=== PATIENT | male | born 1960 | race Caucasian/White ===

== ENCOUNTER 2024-05-26 09:19 | Emergency (ER) | payer OTHER, SELFPAY ==
[2024-05-26] VITALS (7 sets, daily range): BP systolic 115–145; BP diastolic 51–71; BMI 42.2
--- NOTE | 2024-05-26 09:40 | EDRN ---
the pt is in ED Bed #10, the pt got himself out of the bed, while the pt was in the stretcher the pt was screaming and cursing stating, 'I like this better than [facility], at least the nurses are better looking here, that fucking place keeps
holding medications from me and my is all pissed off now, they said i attacked them i didn't attack anyone', VS WNL, the pt was able to ambulate to the bathroom with no issues, Dr. Thorne currently at the pts bedside speaking to the pt, crisis
consult was placed per provider, will continue to monitor the pt closely
--- NOTE | 2024-05-26 09:47 | EDRN ---
the pt is standing in the doorway of Bed #10 and will not go back into his room, the pt is standing with his gown open in the front, this RN called security to assist with the situation
--- NOTE | 2024-05-26 09:56 | EDRN ---
security currently at the pts bedside speaking with the pt
[2024-05-26] MEDS: NICORETTE 2 MG PO ×2 (10:02→14:50)
[2024-05-26] MEDS: COLACE 100 MG PO (10:02)
[2024-05-26] MEDS: BENADRYL 25 MG PO (10:02)
--- NOTE | 2024-05-26 10:07 | ED.GENMED ---
History of Present Illness
General
Chief Complaint: Crisis Evaluation
Source: patient, family and intermediate (records)
Exam Limitations: none
Time Seen by Provider: 05/26/24 09:29
Nursing documentation reviewed up to this point in time: agreed with
History of Present Illness
History of Present Illness:
63-year-old male presents for evaluation of behavioral issues which have been recurrent
Apparently was admitted to [facility] with sounds like cellulitis and edema treated with antibiotics and diuretic has been at a rehab facility, having persistent behavioral issues apparently got an argument with staff today, over a couple
coffee was sent here via 911, here he is intermittently belligerent with the staff overall cooperative, he tells me he like a cup coffee some stool softener and Tums and Benadryl and a nicotine patch
I discussed the case with his Nirali coincidently the patient has been accepted to [facility] today after 1 PM she is wondering if he could be transferred there
Patient tells me his legs are much improved since he was admitted to [place]
Past History
Past History
ED Past Medical History: CHF and Psychiatric
Social History
Tobacco: Non-smoker
Alcohol: None
Drug: None
Personal:
Living: assisted living
Employment: Retired
Review of Systems
Review of Systems
All Other Systems: Not applicable
Constitutional: Denies fever
Psychiatric: Reports anxiety; Denies suicidal or hallucinations
Phy Exam
Physical Exam
Physical Exam:
Physical Exam
General: no apparent distress, not acutely ill
Neck: No jaundice
Heart: Regular
Lungs: no acute respiratory distress. clear bilaterally
Neuro: alert and oriented. no focal neurological deficits
Skin: no rash
Psychiatric: Agitated but redirectable does not appear to be hallucinating
Extremities: Dressed in Sumanth wrap
Course
Orders/Labs/Results
Orders:
Orders
05/26/24 09:38
Crisis Consult Urgent
Reason for Consult: aggressive/combative behavior, threatening staff at intermediate
Comment: chasing staff, attempting to hit staff
05/26/24 09:46
Calcium 200mg(Ca. Carb. 500mg) [Tums Chewable Tablet] 200 mg PO NOW STA
Calcium 200mg(Ca. Carb. 500mg) [Tums Chewable Tablet] 200 mg PO NOW STA
Docusate Sodium [Colace] 100 mg PO NOW STA
Nicotine Polacrilex [Nicorette] 2 mg PO Q2HPRN PRN
05/26/24 09:47
Diphenhydramine [Benadryl] 25 mg PO NOW STA
05/26/24 10:56
COVID-19 Antigen Urgent
Source: Nasal Swab
Complete Blood Count/No Diff Urgent
Comprehensive Metabolic Panel Urgent
05/26/24 10:57
CR Chest - 2 Views Urgent
Comment:
Reason For Exam: leg swelling
Vital Signs
Initial and Last Documented VS:
Initial Vital Signs
Temp Pulse Resp BP Pulse Ox
97.9 F 82 16 124/60 98
05/26/24 09:29 05/26/24 09:29 05/26/24 09:29 05/26/24 09:29 05/26/24 09:29
Last Documented Vital Signs
Temp Pulse Resp BP Pulse Ox
97.9 F 82 16 124/60 98
05/26/24 09:29 05/26/24 09:29 05/26/24 09:29 05/26/24 09:29 05/26/24 09:29
MDM/Problems Addressed
Differential Diagnosis Includes:
Psychosis anxiety depression adjustment disorder no signs of DRIVER SERVICE TECHNICIAN infection by history and physical
MDM/Problems Addressed:
Anxiety
Chronic conditions affecting care: Psychiatric illness
Acute Exacerbation and/or Progression of Chronic Illness: Psychiatric illness
*Pulse Oximetry
Patient hypoxic: no
*Critical Care Note
Total Time (30-74mins, 75-104mins- exclusive of procedures): Not Applicable
Update Note
Update Note:
Update patient easily redirectable request some [id number] meds, will give those to him, also request coffee, did review with his Nirali who would like him to go to [facility] as previously scheduled reviewed with client from crisis will
try to facilitate
Update [facility] is excepted the patient reportedly, has a bed later in the afternoon early evening due to late discharge if requested COVID chest x-ray labs etc.
ED Attending Note
-
Portions of this chart may have been created with voice recognition software.� Occasional wrong word or��sound alike� substitutions may have occurred due to the inherent limitations of voice recognition software.
Discharge Plan
Departure
Patient Disposition: Psych Facility
Date of Disposition: 05/26/24
Time of Disposition: 11:05
Patient with high blood pressure during this ER visit?: No
Condition: Good
Discharge Problem:
Behavioral issue
Instructions: Anxiety, Adult (DC)
Prescriptions:
No Action
acetaminophen 325 mg tablet
650 mg PO QIDPRN PRN (Reason: mild pain/fever)
doxycycline hyclate 100 mg capsule
100 mg PO BID
thiamine HCl (vitamin B1) 100 mg tablet
100 mg PO BID
cefadroxil 500 mg capsule
1,000 mg PO BID
oxycodone-acetaminophen 5-325 mg tablet
1 tab PO Q4HPRN PRN (Reason: moderate pain)
trazodone 100 mg tablet
100 mg PO HS
ferrous sulfate 325 mg (65 mg iron) tablet
325 mg PO DAILY
divalproex 500 mg tablet extended release 24 hr
2,000 mg PO DAILY
cholecalciferol (vitamin D3) 25 mcg (1,000 unit) tablet
50 mcg PO DAILY
cyanocobalamin (vitamin B-12)
1 tab PO DAILY
Referrals:
Dinesh Lindo DO [Family Provider] -
Interventions
Interventions:
*Risk Screen - Suicide Last Done: 05/26/24 09:29
*General Assessment Last Done: 05/26/24 09:29
*Neglect/Abuse Screening Last Done: 05/26/24 09:29
ED- Fall Risk Assessment Last Done: 05/26/24 09:29
*ED COVID-19 Vaccine History Last Done: 05/26/24 09:29
ED-Psychological Assessment Last Done: 05/26/24 09:29
Discharge Date and Time
Print Language: SLOVAK
--- NOTE | 2024-05-26 10:08 | EDRN ---
the pt was standing in the hallway outside of Bed #10, this RN approached the pt and stated that this RN had medication for him and this RN asked the pt to please to back in his room so that this RN could discuss the pts medications with him in
private out of the hallway, the pt got angry and stated, 'Is this how you treat a fucking vet, i'm a vet and this is who you treat me, this is dispicable, just give me my medication and give me coffee right now!', this RN attempted to de escalate
the situation and attempted to calm the pt down, security was called to the pts room, the pt was able to calm down and the pt apologized to this RN, the pt was compliant with taking his medications and was able to take them with no issues, the pt is
walking around in his room and continues to come out of his room attempting to speak to people as they pass by, Raphael from security is talking to the pt, the pt states to security, 'I am bored can you please talk to me', will continue to monitor the
pt closely
--- NOTE | 2024-05-26 10:24 | EDRN ---
the pt continues to pace in his room, the pt is calm and pleasant with staff currently, will continue to monitor the pt closely
--- NOTE | 2024-05-26 10:33 | EDRN ---
this RN provided coffee for the pt per the pts request, the pt is pleasant, calm, and cooperative, the pt continues to walk around in his room and is watching a movie, pastoral care is currently at the pts bedside speaking with the pt, will continue
to monitor the pt closely
--- NOTE | 2024-05-26 10:47 | EDRN ---
pastoral care currently at the pts bedside again speaking with the pt
[2024-05-26 11:34] LABS: Hematocrit 30.8 % (39.0-52.0); Hemoglobin 10.2 g/dL (13.0-18.0); Mean Corp Hgb Conc. 33.1 g/dL (33.0-37.0); Mean Corpuscular Hgb 25.4 pg (27.0-31.0); Mean Corpuscular Volume 76.8 fL (80.0-94.0); Mean Platelet Volume 8.7 fL (7.4-10.4); Platelet Count 266 10^3/uL (130-400); Red Blood Cell Count 4.01 10^6/uL (4.70-6.10); Red Cell Dist. Width 18.7 % (11.5-14.5); White Blood Cell Count 8.2 10^3/uL (4.8-10.8)
--- NOTE | 2024-05-26 11:46 | EDRN ---
an ER lunch box was provided for the pt and another cup of coffee, the pt was agreeable to this RN obtaining lab work, the pt states that he will think about allowing this RN to obtain covid swab per the providers ordser
--- NOTE | 2024-05-26 11:47 | EDRN ---
an ER lunch box was provided for the pt and another cup of coffee, the pt was agreeable to this RN obtaining lab work, the pt states that he will think about allowing this RN to obtain covid swab per the providers orders, will continue to monitor
the pt closely
[2024-05-26 11:52] LABS: ALT (SGPT) 17 U/L (0-50); AST (SGOT) 26 U/L (17-59); Albumin 4.4 g/dl (3.5-5.0); Alkaline Phosphatase 66 U/L (38-126); Blood Urea Nitrogen 32 mg/dl (9-20); Carbon Dioxide 29 mmol/L (22-30); Chloride 96 mmol/L (98-107); Estimated Creatinine Clearance 86 ml/min; Glucose 116 mg/dl (70-99); Potassium 4.6 mmol/L (3.5-5.1); Sodium 137 mmol/L (135-145); Total Bilirubin 0.6 mg/dl (0.2-1.3); Total Protein 7.4 g/dl (6.3-8.2); eGFR > 60.00
--- NOTE | 2024-05-26 12:32 | EDRN ---
the pt is sitting in the chair in his room sleeping sitting up, no s/s of distress, call edmonds within reach, will continue to monitor the pt closely
[2024-05-26] MEDS: ATIVAN 2 MG PO (14:04)
--- NOTE | 2024-05-26 14:07 | EDRN ---
the provider ordered Ativan 2mg PO for the pt for increased agitation, the pt was agreeable to taking it, the pt is sitting on the chair in his room, call edmonds within reach, the pt is watching TV
--- NOTE | 2024-05-26 14:11 | EDRN ---
this RN called crisis for an update, the pt is going to [facility] at 9pm
--- NOTE | 2024-05-26 14:15 | EDRN ---
this RN saw the pt walk down the hallway, this RN approached the pt and asked the pt where he was going, the pt stated, 'I want to go outside, i shouldn't have to stay in here all day, i pay for a one on one med tech at the facility, are they not
here? do they not follow me wherever i go?', this RN explained to the pt that it is a safety issue right now to let the pt go outside, this RN asked the pt if he could please go back to his room, the pt stated, 'I just need to go outside, and i need
to go within the next 15 minutes', the pt is now sitting in the chair in his room watching TV, call edmonds within reach, will continue to monitor the pt closely
--- NOTE | 2024-05-26 14:19 | EDRN ---
the pt approached this RN at the nurses station and asked for more food, this RN provided the pt with another ER lunch box
--- NOTE | 2024-05-26 14:32 | EDRN ---
the pt came out of his room ED Bed #10 and started screaming at staff, security was called, security is talking with the pt in his room now
[2024-05-26] MEDS: HALDOL 5 MG PO (14:50)
--- NOTE | 2024-05-26 15:02 | ED.GENMED ---
History of Present Illness
General
Chief Complaint: Crisis Evaluation
Time Seen by Provider: 05/26/24 09:29
Past History
Past History
ED Past Medical History: CHF and Psychiatric
Social History
Tobacco: Non-smoker
Alcohol: None
Drug: None
Personal:
Living: assisted living
Employment: Retired
Course
Orders/Labs/Results
Orders:
Orders
05/26/24 09:38
Crisis Consult Urgent
Reason for Consult: aggressive/combative behavior, threatening staff at retirement
Comment: chasing staff, attempting to hit staff
05/26/24 09:46
Calcium 200mg(Ca. Carb. 500mg) [Tums Chewable Tablet] 200 mg PO NOW STA
Calcium 200mg(Ca. Carb. 500mg) [Tums Chewable Tablet] 200 mg PO NOW STA
Docusate Sodium [Colace] 100 mg PO NOW STA
Nicotine Polacrilex [Nicorette] 2 mg PO Q2HPRN PRN
05/26/24 09:47
Diphenhydramine [Benadryl] 25 mg PO NOW STA
05/26/24 10:56
COVID-19 Antigen Urgent
Source: Nasal Swab
05/26/24 10:57
CR Chest - 2 Views Urgent
Comment:
Reason For Exam: leg swelling
05/26/24 11:19
Complete Blood Count/No Diff Urgent
Comprehensive Metabolic Panel Urgent
05/26/24 13:41
Lorazepam [Ativan] 1 mg PO Q4HPRN PRN
05/26/24 13:50
Lorazepam [Ativan] 2 mg PO NOW STA
05/26/24 14:46
Haloperidol [Haldol] 5 mg PO NOW STA
Abnormal Lab Results
05/26/24
11:19
RBC 4.01 L 10^6/uL
(4.70-6.10)
Hgb 10.2 L g/dL
(13.0-18.0)
Hct 30.8 L %
(39.0-52.0)
MCV 76.8 L fL
(80.0-94.0)
MCH 25.4 L pg
(27.0-31.0)
RDW 18.7 H %
(11.5-14.5)
Chloride 96 L mmol/L
(98-107)
BUN 32 H mg/dl
(9-20)
Glucose 116 H mg/dl
(70-99)
05/26/24 11:19
05/26/24 11:19
Vital Signs
Initial and Last Documented VS:
Initial Vital Signs
Temp Pulse Resp BP Pulse Ox
97.9 F 82 16 124/60 98
05/26/24 09:29 05/26/24 09:29 05/26/24 09:29 05/26/24 09:29 05/26/24 09:29
Last Documented Vital Signs
Temp Pulse Resp BP Pulse Ox
98.5 F 82 16 145/71 96
05/26/24 12:59 05/26/24 12:59 05/26/24 12:59 05/26/24 12:59 05/26/24 12:59
Update Note
Update Note:
14:40 -patient becoming increasingly agitated, yelling and screaming at staff. Will administer oral Haldol.
-Jessiera Cassidy DO
ED Attending Note
-
Portions of this chart may have been created with voice recognition software.� Occasional wrong word or��sound alike� substitutions may have occurred due to the inherent limitations of voice recognition software.
Discharge Plan
Departure
Patient Disposition: Psych Facility
Date of Disposition: 05/26/24
Time of Disposition: 11:05
Patient with high blood pressure during this ER visit?: No
Condition: Good
Covid-19: Negative COVID-19
Discharge Problem:
Behavioral issue
Instructions: Anxiety, Adult (DC)
Prescriptions:
No Action
acetaminophen 325 mg tablet
650 mg PO QIDPRN PRN (Reason: mild pain/fever)
doxycycline hyclate 100 mg capsule
100 mg PO BID
thiamine HCl (vitamin B1) 100 mg tablet
100 mg PO BID
cefadroxil 500 mg capsule
1,000 mg PO BID
oxycodone-acetaminophen 5-325 mg tablet
1 tab PO Q4HPRN PRN (Reason: moderate pain)
trazodone 100 mg tablet
100 mg PO HS
ferrous sulfate 325 mg (65 mg iron) tablet
325 mg PO DAILY
divalproex 500 mg tablet extended release 24 hr
2,000 mg PO DAILY
cholecalciferol (vitamin D3) 25 mcg (1,000 unit) tablet
50 mcg PO DAILY
cyanocobalamin (vitamin B-12)
1 tab PO DAILY
Referrals:
Dinesh Lindo DO [Family Provider] -
Interventions
Interventions:
*Risk Screen - Suicide Last Done: 05/26/24 09:29
*General Assessment Last Done: 05/26/24 09:29
*Neglect/Abuse Screening Last Done: 05/26/24 09:29
ED- Fall Risk Assessment Last Done: 05/26/24 09:29
*ED COVID-19 Vaccine History Last Done: 05/26/24 09:29
ED-Psychological Assessment Last Done: 05/26/24 09:29
Discharge Date and Time
Print Language: GREENLANDIC
--- NOTE | 2024-05-26 16:38 | EDRN ---
the pt was sleeping in the chair, this RN woke the pt up and asked him if he could get in the stretcher to be more comfortable, the pt agreed, the pt was able to ambulate from the chair to the stretcher, the pt is resting in stretcher in the lowest
position, side rails up x2, all edmonds within reach, HOB elevated, no s/s of distress, VS WNL, will continue to monitor the pt closely
[2024-05-26 17:16] LABS: COVID-19 Antigen Negative (Negative)
--- NOTE | 2024-05-26 18:45 | EDRN ---
this RN called [facility] staff at [phone] and spoke to Cheryl
--- NOTE | 2024-05-26 18:45 | EDRN ---
this RN called [facility] Crisis staff at [phone] and spoke to Cheryl and gave verbal report
== END 2024-05-26 21:27 ==
LOC: EMR 09:19
PROVIDERS: EMERGENCY PHYSICIAN Emergency Medicine; FAMILY PHYSICIAN Internal Medicine Geriatric Medicine
DX: F41.9 Anxiety disorder, unspecified (principal); R45.1 Restlessness and agitation; M79.89 Other specified soft tissue disorders; F03.911 Unspecified dementia, unspecified severity, with agitation; Z11.52 Encounter for screening for COVID-19; I50.9 Heart failure, unspecified
CPT/HCPCS: 99285; 71046; 80053; 85027; 87811

== ENCOUNTER 2024-08-24 13:09 | Inpatient (IN) | payer OTHER, SELFPAY ==
[2024-08-24] VITALS (11 sets, daily range): BP systolic 106–150; BP diastolic 58–77; BMI 39.2
[2024-08-24 10:51] LABS: % Basophils 0.4 % (0-2); % Eosinophils 6.4 % (0-6); % Immature Granulocytes 0.2 % (0-0.5); % Monocytes 12.8 % (1.7-9.3); % Neutrophils 52.2 % (42.2-75.2); Absolute Eosinophils 0.3 10^3/uL (0-0.7); Absolute Lymphocytes 1.4 10^3/uL (1.2-3.4); Absolute Monocytes 0.6 10^3/uL (0.1-0.6); Absolute Neutrophils 2.5 10^3/uL (1.4-6.5); Hematocrit 40.4 % (39.0-52.0); Hemoglobin 13.2 g/dL (13.0-18.0); Mean Corp Hgb Conc. 32.7 g/dL (33.0-37.0); Mean Corpuscular Hgb 26.1 pg (27.0-31.0); Mean Platelet Volume 9.4 fL (7.4-10.4); Nucleated Red Blood Cells % 0 % (-); Platelet Count 114 10^3/uL (130-400); Red Blood Cell Count 5.05 10^6/uL (4.70-6.10); White Blood Cell Count 4.9 10^3/uL (4.8-10.8)
[2024-08-24 11:00] LABS: ALT (SGPT) 19 U/L (0-50); AST (SGOT) 28 U/L (17-59); Albumin 4.4 g/dl (3.5-5.0); Alkaline Phosphatase 51 U/L (38-126); Blood Urea Nitrogen 26 mg/dl (9-20); Calcium 9.6 mg/dl (8.4-10.2); Carbon Dioxide 34 mmol/L (22-30); Chloride 94 mmol/L (98-107); Glucose 91 mg/dl (70-99); Potassium 4.2 mmol/L (3.5-5.1); Sodium 137 mmol/L (135-145); Total Bilirubin 0.6 mg/dl (0.2-1.3); Total Protein 7.7 g/dl (6.3-8.2); eGFR 47.82
[2024-08-24] MEDS: TYLENOL 1000 MG PO (11:02)
--- NOTE | 2024-08-24 11:04 | ED.GENMED ---
History of Present Illness
General
Chief Complaint: Skin Problem
Time Seen by Provider: 08/24/24 10:14
History of Present Illness
History of Present Illness:
63-year-old male with history of frontotemporal dementia and chronic lower extremity edema presents to the emergency department via EMS from [facility] due to worsening leg swelling despite increasing furosemide. Nursing facility
also reports that his legs are markedly erythematous which is not normal. Patient reports diffuse pain to the legs. He states he has been admitted to the hospital many times for cellulitis of the lower extremities
Past History
Past History
ED Past Medical History: CHF and Psychiatric
Social History
Tobacco: Non-smoker
Alcohol: None
Drug: None
Personal:
Living: assisted living
Employment: Retired
Review of Systems
Review of Systems
Allergies reviewed?: Yes
All Other Systems: ROS reviewed and negative except as documented in HPI and ROS
Phy Exam
Physical Exam
Physical Exam:
GEN: Well appearing, NAD, WDWN
HEENT: Oral mucosa moist, no scleral icterus
Cardiac: Regular rate and rhythm, no murmurs
Lung: No respiratory distress, no tachypnea
MSK: No gross deformity or injuries. Marked erythema circumferentially to bilateral lower extremities associated with 4+ pitting edema to the knees bilaterally
Skin: Good color, no pallor or jaundice, no rashes
Neuro: AO x3, moves all extremities freely
Psych: Calm, cooperative
Course
Orders/Labs/Results
Orders:
Orders
08/24/24 10:35
Complete Blood Count/With Diff Urgent
Comprehensive Metabolic Panel Urgent
08/24/24 10:56
Acetaminophen [Tylenol] 1,000 mg PO NOW STA
08/24/24 11:11
NT-proBNP Urgent
08/24/24 11:59
CeFAZolin 2 GRAM [Ancef] 2 grams in 10 ml IV NOW
Furosemide [Lasix] 40 mg IV ONCE ONE
08/24/24 12:45
Admit/Transfer Patient As Directed
Co-Sign Provider:
Level of Care: Inpatient admission
Assign to:: Medical/Surgical
Physician / Group: [email or web address]
Diagnosis: Worsening chronic B/L Jay edema DDX: chr venous insufficiency
Reason for Hospitalization: Worsening chronic B/L Jay edema DDX: chr venous insufficiency with stasis edema
+/_ cellulitis
Expected length of stay greater than two midnights?: Yes
ELOS- Estimated Length of Stay in days: 3
I certify the patient meets the requirements for IP care: Yes
08/24/24 12:50
Code Status As Directed
Resuscitation Status: Full Code
08/24/24 12:54
Venous Doppler Lwr Ext Bilat [US Periph Venous LOWER Ext Josiah] Urgent
Comment:
Reason For Exam: BLE edema
Abnormal Lab Results
08/24/24
10:35
MCH 26.1 L pg
(27.0-31.0)
MCHC 32.7 L g/dL
(33.0-37.0)
RDW 22.0 H %
(11.5-14.5)
Plt Count 114 L 10^3/uL
(130-400)
Monocytes % 12.8 H %
(1.7-9.3)
Eosinophils % 6.4 H %
(0-6)
Chloride 94 L mmol/L
(98-107)
Carbon Dioxide 34 H mmol/L
(22-30)
BUN 26 H mg/dl
(9-20)
Creatinine 1.6 H mg/dL
(0.7-1.3)
08/24/24 10:35
08/24/24 10:35
Vital Signs
Initial and Last Documented VS:
Initial Vital Signs
BP
139/76
08/24/24 10:23
Last Documented Vital Signs
Temp Pulse Resp BP Pulse Ox
98.1 F 84 19 106/77 97
08/24/24 10:37 08/24/24 14:00 08/24/24 14:00 08/24/24 14:00 08/24/24 14:00
MDM/Problems Addressed
MDM/Problems Addressed:
Patient has severe erythema and warmth of bilateral lower extremity suggesting acute cellulitis however cannot rule out associated venous stasis. Will treat with antibiotics and diuretics, will require admission to the hospital due to the complex
nature of infections and lymphedema
*Critical Care Note
Total Time (30-74mins, 75-104mins- exclusive of procedures): Not Applicable
ED Attending Note
-
Portions of this chart may have been created with voice recognition software.� Occasional wrong word or��sound alike� substitutions may have occurred due to the inherent limitations of voice recognition software.
Discharge Plan
Departure
Patient Disposition: Admit
Date of Disposition: 08/24/24
Time of Disposition: 12:00
Admit to: Med/Surg
Presentation/result/management discussed w/ accepting MD/DO: Hospitalist
Discharge Problem:
Bilateral leg edema, Bilateral lower leg cellulitis
Interventions
Interventions:
*Risk Screen - Suicide Last Done: 08/24/24 10:37
*General Assessment Last Done: 08/24/24 10:40
*Neglect/Abuse Screening Last Done: 08/24/24 10:37
ED- Fall Risk Assessment Last Done: 08/24/24 10:40
*ED COVID-19 Vaccine History Last Done: 08/24/24 10:37
ED-Skin Assessment Last Done: 08/24/24 10:40
--- NOTE | 2024-08-24 12:34 | HPS.HSE ---
Addendum entered and electronically signed by Panchito Monsivais MD 08/24/24 15:06:
Addendum HX:
�HX Factor V Leiden def
- On chr Xarelto
Original Note:
Family Physician
-
Family Physician: NO INTERVIEW UNKNOWN
Chief Complaint
-
b.l LE swelling
History of Present Illness
I could not get any information from the patient as FT dementia
Information gathered by chart review and speaking with the ER staff.
HPI
63M Res of [facility] init HX frontotemporal dementia and chronic lower extremity edema [facility] seen at ER:
- worsening leg swelling despite increasing furosemide.
- Nursing facility also reports that his legs are markedly erythematous which is not normal.
- Patient reports diffuse pain to the legs.
- He states he has been admitted to the hospital many times for cellulitis of the lower extremities
Medical History
Past Medical History
Past Medical History: Reports Dementia (frontotemporal dementia , suspect HX behavioral dysfunction ), HTN and Hypothyroidism
Additional Past Medical History:
chronic B/L Jay edema DDX: chr venous insufficiency with stasis edema, gout
Past Surgical History: Reports None
Social History
Unable to obtain full social history at this time due to: Dementia
Tobacco: Non-smoker
Alcohol: None
Drug: None
Personal:
Family History
Family History: Not pertinent
Allergies / Home Medications
Allergies reflects when Allergies were last updated in [employer].
Home Medications with original date entered in [employer]
Allergy/Medication List:
Allergies
Allergy/AdvReac Type Severity Reaction Status Date / Time
No Known Allergies Allergy Verified 08/24/24 10:41
Home Medications
acetaminophen 325 mg tablet 650 mg PO QIDPRN PRN mild pain/fever 05/26/24
cyanocobalamin (vitamin B-12) 1,000 mcg tablet 2,000 mcg PO DAILY Supplement 05/26/24
ferrous sulfate 325 mg (65 mg iron) tablet 324 mg PO DAILY Supplement 05/26/24
albuterol sulfate 90 mcg/actuation aerosol inhaler 2 puff inhalation R Q6HPRN PRN sob 08/24/24
allopurinol 100 mg tablet 100 mg PO DAILY Gout 08/24/24
calcium carbonate (Tums) 400 mg PO Q4HPRN PRN gerd 08/24/24
capsaicin 0.1 % topical cream (Arthritis Pain Relief (capsaicin)) 1 applic topical DAILY 4 gram b/l knee 08/24/24
chlorpromazine 25 mg tablet 25 mg PO BID Gastrointestinal Issue 08/24/24
clonazepam 0.5 mg tablet 0.5 mg PO HS Mental Health/Anxiety 08/24/24
clonazepam 1 mg tablet 1 mg PO BID@1300,2100 Mental Health/Anxiety 08/24/24
divalproex 500 mg tablet,delayed release 1,000 mg PO BID Neurological Condition 08/24/24
ergocalciferol (vitamin D2) 1,250 mcg (50,000 unit) capsule 1,250 mcg PO WE Supplement 08/24/24
famotidine 20 mg tablet (Pepcid) 20 mg PO BID Gastrointestinal Issue 08/24/24
fluticasone 250 mcg-salmeterol 50 mcg/dose blistr powdr for inhalation (Advair Diskus) 1 inh inhalation R BID Lung/Breathing Issues 08/24/24
furosemide 40 mg tablet (Lasix) 40 mg PO BID Fluid Retention/Swelling 08/24/24
hydrocortisone 2.5 % topical cream 1 applic topical TID forehead,center face,chin 08/24/24
lanolin alcohols-mineral oil-w.petrolatum-ceresin topical cream (Minerin Creme topical) 1 applic topical HS lower estremites 08/24/24
levothyroxine 50 mcg tablet (Synthroid) 50 mcg PO DAILY Thyroid 08/24/24
loratadine 10 mg tablet (Claritin) 10 mg PO DAILY Allergies 08/24/24
losartan 25 mg tablet 25 mg PO DAILY Blood Pressure 08/24/24
nicotine 21 mg/24 hr daily transdermal patch 1 patch transdermal DAILY nicotine 08/24/24
pantoprazole 40 mg tablet,delayed release (Protonix) 40 mg PO DAILY Gastrointestinal Issue 08/24/24
risperidone 1 mg tablet (Risperdal) 1.5 mg PO BID Mental Health 08/24/24
rivaroxaban 10 mg tablet (Xarelto) 10 mg PO QPM Blood Clot Prevention/Tx 08/24/24
triamcinolone acetonide 0.025 % topical ointment 1 applic topical DAILY lower legs and ankles 08/24/24
Review of Systems
-
Unable to obtain full review of systems at this time due to: Dementia
Physical Exam
Vital Signs
Vital Signs
Temp Pulse Resp BP Pulse Ox
98.1 F 83 16 139/76 98
08/24/24 10:37 08/24/24 10:37 08/24/24 10:37 08/24/24 10:37 08/24/24 10:37
Physical Exam
General: No Apparent Distress, Comfortable and Conversant
HEENT: NormoCephalic and Anicteric
Respiratory: Clear
Cardiac: S1/S2 and Regular Rhythm
Breast: Deferred by me
GI: Soft, Non Tender, Non Distended and Normal Bowel Sounds
Rectal: Deferred by Provider
Genito-urinary: Deferred by me
Musculoskeletal: Edema, Left Lower Extremity, Edema, Right Lower Extremity and Other (Marked erythema circumferentially to bilateral lower extremities associated with 4+ pitting edema to the knees bilaterally)
Skin: Other (b/l legs : very warm , erythematous and tender , pitting edema)
Neuro: Awake and Alert
Psych: Calm
Laboratory Results
-
08/24/24 10:35
08/24/24 10:35
Laboratory Results
Total Bilirubin 0.6 mg/dl (0.2-1.3) 08/24/24 10:35
AST 28 U/L (17-59) 08/24/24 10:35
ALT 19 U/L (0-50) 08/24/24 10:35
Alkaline Phosphatase 51 U/L (38-126) 08/24/24 10:35
Data Reviewed
-
Lab Data: Discussed with Physician
Old Records: Requested (by ER RESEARCH ENVIRONMENTAL ENGINEER )
Impression/Plan
-
Reviewed VS: Afebrile
Data
05/26/24 08/24/24 08/24/24
11:19 10:35 11:11
WBC 4.9
Plt Count 266 114 L
Chloride 94 L
Carbon Dioxide 29 34 H
Creatinine 1.2 1.6 H
eGFR > 60.00 47.82
Vyj-I-Ezlamnssdwc Pept 24.0
NO PRIOR hospitalist admission:
ASSESSMENT & PLAN
Worsening chronic B/L Jay edema proabaly chr venous insufficiency/ stasis edema with superimposed b/l Jay cellulitis
Asso. Ambulatory dysfunction
Afebrile, nl WCC
- b/l Jay US
- unremarkable pro BNP
- check b/l Jay US
- Empiric IV Cefazolin 2GM Q8H
- WD care for compression Tx
- ID consult for second opinion ref to cellulitis or what not !
CHF in the listed HX
-not in acute HF
- ECHO in AM
- cont. IV Lasix [address] of PO Frusmide 40 BID for LExz edema
- on BOLT SAWYER Losartan
- daily wt
- daily BMP
Benign HTN
- on BOLT SAWYER Losartan
On Chr Xarelto - uncertain of indication
No prior Dx of DVT/PE or AF
of note SNF just said 'clot prevention'
- To increase info from NH record
HX FTD ( Frontotemporal dementia )
Suspect HX behavioral dysfunction
- BOLT SAWYER Risperidone
- BOLT SAWYER Clonazepam
- BOLT SAWYER Divalproex
Hypothyroid
- asymptomatic
- check TSH
- on LT4
Gout
- not active, stable
- allopurinol
DVT Px: Xarelto
Full code
IP MS
[2024-08-24] MEDS: LASIX 40 MG IV (12:56)
[2024-08-24] MEDS: ANCEF 10 IV ×2 (12:56→21:05)
--- NOTE | 2024-08-24 16:54 | PTCARENOTE ---
Received pt from ED via stretcher. Pulled over to bed with assist x4. AAOx2-3. Forgetful. Bed alarm placed and plugged in. Assessed. Call edmonds placed within close reach. Will cont to monitor.
[2024-08-24] MEDS: KLONOPIN 1 MG PO ×2 (17:51→21:12)
[2024-08-24] MEDS: XARELTO 10 MG PO (17:51)
[2024-08-24] MEDS: THORAZINE 25 MG PO (21:06)
[2024-08-24] MEDS: PEPCID 20 MG PO (21:06)
[2024-08-24] MEDS: DEPAKOTE (12 HR RELEASE) 1000 MG PO (21:07)
[2024-08-24] MEDS: RISPERDAL 1.5 MG PO (21:07)
[2024-08-24] MEDS: KLONOPIN PO (22:53)
[2024-08-25] MEDS: ANCEF 10 IV ×3 (03:55→21:38)
[2024-08-25] MEDS: SYNTHROID 50 MCG PO (05:01)
[2024-08-25] MEDS: KLONOPIN 0.5 MG PO ×2 (05:01→23:18)
[2024-08-25 06:00] VITALS: BMI 38.8
[2024-08-25 06:43] LABS: Hematocrit 34.5 % (39.0-52.0); Hemoglobin 11.4 g/dL (13.0-18.0); Mean Corpuscular Hgb 26.6 pg (27.0-31.0); Mean Corpuscular Volume 80.4 fL (80.0-94.0); Mean Platelet Volume 9.3 fL (7.4-10.4); Platelet Count 100 10^3/uL (130-400); Red Blood Cell Count 4.29 10^6/uL (4.70-6.10); Red Cell Dist. Width 21.4 % (11.5-14.5); White Blood Cell Count 4.8 10^3/uL (4.8-10.8)
[2024-08-25 07:03] LABS: Blood Urea Nitrogen 26 mg/dl (9-20); Calcium 8.9 mg/dl (8.4-10.2); Carbon Dioxide 32 mmol/L (22-30); Chloride 98 mmol/L (98-107); Estimated Creatinine Clearance 75 ml/min; Glucose 85 mg/dl (70-99); Potassium 4.1 mmol/L (3.5-5.1); Sodium 136 mmol/L (135-145); eGFR > 60.00
--- NOTE | 2024-08-25 07:08 | PTCARENOTE ---
Pt's Klonopin 1mg ordered for 2099 and Klonopin 0.5mg ordered for 2199. 2100 dose given (see MAR), 2199 dose held d/t pt being drowsy. at 0, pt woke up c/o anxiety and was attempting to get oob. METAL PLATER notified, 1x dose of klonopin 0.5mg ordered.
Med list from pt's facility said to give both klonopin doses together HS. home med list updated and METAL PLATER notified. No new orders placed. Plan of care ongoing and bed alarm in place.
[2024-08-25 07:31] VITALS: BP 125/62
[2024-08-25 07:35] LABS: TSH 5.05 uIU/ml (0.47-4.68)
[2024-08-25] MEDS: TYLENOL 650 MG PO (09:07)
[2024-08-25] MEDS: LASIX 40 MG IV ×2 (09:07→16:00)
[2024-08-25] MEDS: PEPCID 20 MG PO ×2 (09:07→21:44)
[2024-08-25] MEDS: RISPERDAL 1.5 MG PO ×2 (09:08→21:39)
[2024-08-25] MEDS: ZYLOPRIM 100 MG PO (09:08)
[2024-08-25] MEDS: PROTONIX 40 MG PO (09:08)
[2024-08-25] MEDS: DEPAKOTE (12 HR RELEASE) 1000 MG PO ×2 (09:08→21:40)
[2024-08-25] MEDS: THORAZINE 25 MG PO ×2 (09:08→21:42)
[2024-08-25] MEDS: DRISDOL (VITAMIN D2) 50000 UNITS PO (09:09)
--- NOTE | 2024-08-25 09:43 | W.PN.HOSP.TC ---
Today's Communication/Plan
-
Lasix IV BID
Echo of heart
EKG
BMP in AM
f/w ID recommendations
compression dressing to LEs.
Assessment / Plan
Assessment / Plan
Physical Exam
General: No Apparent Distress, obese, Comfortable and Conversant
HEENT: Normocephalic and Anicteric
Respiratory: Clear
Cardiac: S1/S2 and Regular Rhythm
GI: Soft, Non Tender, Non Distended and Normal Bowel Sounds
Rectal: No bleeding
Genito-urinary:no hematuria
Musculoskeletal: edema in both lower extremities with redness, no tenderness.
Skin: Other (b/l legs : very warm , erythematous and tender , pitting edema)
Neuro: Awake and Alert , disoriented to place, time. He followed commands
Psych: Calm
Worsening chronic B/L Jay edema likely due to edema, chronic venous insufficiency/ stasis edema
Doubt Jay cellulitis with absence of pain/ fever/ leukocytosis.
Negative US for DVT
- unremarkable pro BNP
- Empiric IV Cefazolin 2GM Q8H. ID is consulted.
- Elevate the LE, compression dressing.
- start IV Lasix BID. Will do echo of heart to check for RV dysfunction. No signs of respiratory distress but patient is not reliable historian.
CHF in the listed HX
Will f/w ECHO
- cont. IV Lasix 40 daily as BID. Monitor weight/ renal function and electrolytes.
- Hold Losartan to avoid low BP while on Lasix IV.
EKG
- daily BMP
Benign HTN
On Chr Xarelto - uncertain of indication
No prior Dx of DVT/PE or AF
of note SNF just said 'clot prevention'
- To increase info from NH record
HX FTD ( Frontotemporal dementia )
HX behavioral dysfunction
- STEWARD/STEWARDESS CLUB CAR Risperidone
- STEWARD/STEWARDESS CLUB CAR Clonazepam
- STEWARD/STEWARDESS [employer]UB CAR Divalproex
Hypothyroid
- asymptomatic
- check TSH
- on LT4
Gout
- not active, stable
- allopurinol
DVT Px: Xarelto
Full code
Total time spent to see the patient, examine the patient, review data and lab results, discuss the treatment plan with patient, nursing staff around 55 minutes
Anticipated Discharge: 24 - 48 hours
Subjective/Interval History
-
Date of Service: August 25, 2024
he denies chest pain, sob , abdominal pain
no pain in both legs
Objective Data
-
Labs:
Laboratory Results
08/25/24
06:23
WBC 4.8
Hgb 11.4 L
Hct 34.5 L
Plt Count 100 L
Sodium 136
Potassium 4.1
Chloride 98
Carbon Dioxide 32 H
BUN 26 H
Creatinine 1.3
Glucose 85
Calcium 8.9
Vital Signs:
Vital Signs
Temp Pulse Resp BP Pulse Ox
97.6 F 72 16 125/62 92
08/25/24 07:31 08/25/24 09:07 08/25/24 07:31 08/25/24 09:07 08/25/24 07:31
I&O
08/24/24 08/25/24 08/26/24
06:59 06:59 06:59
Intake Total 260 / 260
Output Total 1450 / 1450
Balance -1190 / -1190
--- NOTE | 2024-08-25 12:26 | CON.ID ---
Consultation
-
Date/Time Consultation Requested: 08/24/2024 2229
Date/Time Consultation Performed: 08/25/2024 1200
Requesting Provider: Mari Ruiz
Performing Provider: Dr. Umanzor
Reason for Consultation: Lower extremity cellulitis
Chief Complaint / Past History
History of Present Illness
Pete Dan is a 63-year-old man with a significant past medical history of frontotemporal dementia being evaluated at the request of Mari Ruiz regarding bilateral lower extremity cellulitis. History is obtained from chart review, along with
patient interview, although patient was found to not be able to provide significant past medical history for me.
The patient has a history of chronic lower extremity edema, and is admitted from [facility] secondary to worsening lower extremity swelling. He was noted at the facility that his legs have become more edematous despite the use of Lasix, and have
increased in erythema, prompting emergency room evaluation.
Workup in the emergency room did not reveal leukocytosis. Patient was started on empiric antibiotics. Infectious Diseases is asked to comment upon further antimicrobial therapy.
Past History
Additional Past Medical History:
Lower extremity lymphedema
Frontotemporal dementia
HTN
Hypothyroidism
Gout
Past Surgical History: None
Allergy History:
No Known Allergies Allergy (Verified 08/24/24 10:41)
Current Antibiotics:
Cefazolin 2 g IV every 8 hours
Social History
Tobacco: Non-Smoker
Alcohol: None
Drug: None
Living: Long Term
Family History
Family History: Not Pertinent
Review of Systems
Vital Signs
Temp Pulse Resp BP Pulse Ox
97.6 F 72 16 125/62 92
08/25/24 07:31 08/25/24 09:07 08/25/24 07:31 08/25/24 09:07 08/25/24 07:31
Physical Exam
Physical Exam
Constitutional: No Acute Distress, Comfortable, Non-toxic and Obese
Head: Normocephalic
Eyes: No Conjunctival Hemorrhage and Sclera Anicteric
Oral: No Thrush and No Ulcers
Cardiovascular: S1/S2; Negative S3/S4
Pulmonary: Clear; Negative Wheezes or Rales
Gastrointestinal: Soft, Non Tender, Non Distended and Normal Bowel Sounds
Extremities: Edema (4+ B/L LE edema) and Erythema (Marked B/L LE erythema. Mod warmth)
Neurological: Other (Arousable to voice. Resting comfortably.)
Psychological: Calm
.
Lab / Diagnostic Study Results
08/25/24 06:23
08/25/24 06:23
Abs Immat Gran (auto) 0.0 10^3/uL (0-0.05) 08/24/24 10:35
Absolute Neuts (auto) 2.5 10^3/uL (1.4-6.5) 08/24/24 10:35
Absolute Lymphs (auto) 1.4 10^3/uL (1.2-3.4) 08/24/24 10:35
Absolute Monos (auto) 0.6 10^3/uL (0.1-0.6) 08/24/24 10:35
Absolute Basos (auto) 0.0 10^3/uL (0-0.2) 08/24/24 10:35
Immature Gran % 0.2 % (0-0.5) 08/24/24 10:35
Neutrophils % 52.2 % (42.2-75.2) 08/24/24 10:35
Lymphocytes % 28.0 % (20.5-51.1) 08/24/24 10:35
Monocytes % 12.8 % (1.7-9.3) H 08/24/24 10:35
Eosinophils % 6.4 % (0-6) H 08/24/24 10:35
Basophils % 0.4 % (0-2) 08/24/24 10:35
Microbiology Results
Micro:
08/25/24 02:52 MRSA Screen - Pending
Nose
Imaging:
08/24/2024 duplex ultrasound lower extremities: No evidence of DVT in either lower extremity
Assessment / Plan
Bilateral lower extremity erythroderma
Bilateral lower extremity lymphedema
Frontotemporal dementia
HTN
Hypothyroidism
Gout
Morbid obesity
Recommendations:
Continue with empiric ceftriaxone, although likelihood of cellulitis is less given that the erythema is noted on the bilateral lower extremities.
Suspect erythroderma is secondary to profound edema.
Begin bilateral lower extremity compressive modalities with the use of Sumanth wrap's.
Lower extremity elevation above the level of the heart approximately 2 hours out of every 6.
Follow white count and temperature curve.
Follow clinical exam.
[2024-08-25] MEDS: KLONOPIN 1 MG PO ×2 (12:56→23:17)
[2024-08-25 16:04] VITALS: BP 129/76
[2024-08-25 16:15] LABS: Hepatitis C Antibody Negative (Negative)
[2024-08-25] MEDS: XARELTO 10 MG PO (17:33)
[2024-08-25 19:25] VITALS: BP 106/59
[2024-08-25 20:31] VITALS: BP 106/59
[2024-08-25 23:15] VITALS: BP 114/64
[2024-08-26 04:18] VITALS: BMI 38.9
[2024-08-26] MEDS: ANCEF 10 IV ×2 (05:08→12:47)
[2024-08-26] MEDS: SYNTHROID 50 MCG PO (05:09)
[2024-08-26 06:00] VITALS: BMI 38.9
[2024-08-26] MEDS: PROTONIX 40 MG PO (07:39)
[2024-08-26] MEDS: PEPCID 20 MG PO ×2 (07:39→20:40)
[2024-08-26] MEDS: ZYLOPRIM 100 MG PO (07:40)
[2024-08-26] MEDS: RISPERDAL 1.5 MG PO ×2 (07:40→20:41)
[2024-08-26] MEDS: LASIX 40 MG IV ×2 (07:40→15:50)
[2024-08-26] MEDS: DEPAKOTE (12 HR RELEASE) 1000 MG PO ×2 (07:40→20:41)
[2024-08-26] MEDS: THORAZINE 25 MG PO ×2 (07:40→20:41)
[2024-08-26] MEDS: SENOKOT-S 1 TABLET PO (07:44)
[2024-08-26 07:45] VITALS: BP 131/77
[2024-08-26 08:56] LABS: Blood Urea Nitrogen 24 mg/dl (9-20); Calcium 8.9 mg/dl (8.4-10.2); Carbon Dioxide 32 mmol/L (22-30); Chloride 96 mmol/L (98-107); Estimated Creatinine Clearance 75 ml/min; Glucose 80 mg/dl (70-99); Potassium 3.8 mmol/L (3.5-5.1); Sodium 135 mmol/L (135-145); eGFR > 60.00
--- NOTE | 2024-08-26 08:59 | W.PN.HOSP.TC ---
Today's Communication/Plan
-
c/w Diuretic therapy
Echo today
low dose potassium replacement added in pm time
BMP in AM
Assessment / Plan
Assessment / Plan
Physical Exam
General: No Apparent Distress, obese, Comfortable and Conversant
HEENT: Normocephalic and Anicteric
Respiratory: Clear
Cardiac: S1/S2 and Regular Rhythm
GI: Soft, Non Tender, Non Distended and Normal Bowel Sounds
Rectal: No bleeding
Genito-urinary:no hematuria
Musculoskeletal: edema in both lower extremities with redness, no tenderness.
Skin: Other (b/l legs : less edema, discoloration, non tender)
Neuro: Awake and Alert , disoriented to place, time. He followed commands
Psych: Calm
Worsening chronic B/L Jay edema likely due to edema, chronic venous insufficiency/ stasis edema
Doubt Jay cellulitis with absence of pain/ fever/ leukocytosis.
Negative US for DVT
- unremarkable pro BNP
- Empiric IV Cefazolin 2GM Q8H. ID is consulted.
- Elevate the LE, compression dressing.
- start IV Lasix BID. Will do echo of heart to check for RV dysfunction. No signs of respiratory distress but patient is not reliable historian.
CHF in the listed HX
Will f/w ECHO
- cont. IV Lasix 40 daily as BID. Monitor weight/ renal function and electrolytes.
- Held Losartan to avoid low BP while on Lasix IV.
EKG NSR
- daily BMP
Benign HTN
On Chr Xarelto - uncertain of indication
No prior Dx of DVT/PE or AF
of note SNF just said 'clot prevention'
HX FTD ( Frontotemporal dementia )
HX behavioral dysfunction
- BIOSTATISTICS TEACHER Risperidone
- BIOSTATISTICS TEACHER Clonazepam
- BIOSTATISTICS TEACHER Divalproex
Hypothyroid
- asymptomatic
- check TSH
- on LT4
Gout
- not active, stable
- allopurinol
DVT Px: Xarelto
Full code
Total time spent to see the patient, examine the patient, review data and lab results, discuss the treatment plan with patient, nursing staff around 57 minutes
Anticipated Discharge: Within 24 hours
Subjective/Interval History
-
Date of Service: August 26, 2024
No pain issues
feels better
Objective Data
-
Labs:
Laboratory Results
08/26/24
06:23
Sodium 135
Potassium 3.8
Chloride 96 L
Carbon Dioxide 32 H
BUN 24 H
Creatinine 1.3
Glucose 80
Calcium 8.9
Vital Signs:
Vital Signs
Temp Pulse Resp BP Pulse Ox
98.2 F 79 16 131/77 94
08/25/24 23:15 08/26/24 07:45 08/26/24 07:45 08/26/24 07:45 08/26/24 07:45
I&O
08/25/24 08/26/24 08/27/24
06:59 06:59 06:59
Intake Total 260 / 260 840 / 840
Output Total 1450 / 1450 1200 / 1200
Balance -1190 / -1190 -360 / -360
--- NOTE | 2024-08-26 09:18 | CARDSERVLU ---
Echocardiogram with Lumason completed after protocol screening completed. Allergies verified.
Patent IV site: Left arm 20 G PC site clear (in patient)
IV site flushed with 0.9% NaCl pre and post administration.
Diluted bolus method utilized to enhance visualization of ventricular quintero.
Total volume given: ___4_ mL
Patient tolerated all procedures well without complications.
Procedure completed at 0835 in Cardiac Services .
--- NOTE | 2024-08-26 10:04 | WOUNDNOTE ---
[facility] RN note: Patient admitted with increased LE edema.
See H&P for complete history.
PMH: Factor V Leiden deficiency (Xarelto), dementia, lymphedema, HTN, gout, obesity.
Wound Location and type/assessment: Patient admitted with: LE edema with hemosiderosis. +Palpable pedal pulses. LE edema improved as per EMELY Valentine. Coccyx crease MASD.
Appetite: good.
Pressure redistribution devices in place:
Plan:
Will confirm orders with hospitalist and update nurse.
Updated care plan and will follow as needed.
Note to case management of equipment requested for discharge:
Recommend follow up at wound care center upon discharge.
--- NOTE | 2024-08-26 10:08 | WOUNDNOTE ---
[facility] RN note: Patient admitted with increased LE edema.
See H&P for complete history.
PMH: Factor V Leiden deficiency (Xarelto), dementia, lymphedema, HTN, gout, obesity.
Wound Location and type/assessment: Patient admitted with: LE edema with hemosiderosis, no draining wounds le's. +Palpable pedal pulses. LE edema improved as per EMELY Valentine. Coccyx crease MASD.
Appetite: good.
Pressure redistribution devices in place: [employer] air bed. Patient cannot turn self in bed nor lift his legs off bed.
Plan: Thigh high Sumanth wraps applied, sohan care, patient turned to L semi side lying position with help from EMELY Valentine. Heels off bed with pillow and air chair cushion. Instructed patient frequent LE elevation and pressure injury prevention measures.
Care plan to be updated, will sign off. Call if needed.
Recommend follow up at a lymphedema clinic if needed.
[2024-08-26] MEDS: FLUSH (NSS) 2 FLUSH IV (12:48)
[2024-08-26] MEDS: KLONOPIN 1 MG PO ×2 (12:50→20:44)
--- NOTE | 2024-08-26 13:21 | CM ---
CHANTALE from [facility] CM offering assistance with d/c planning.
Her contact number is [phone]- [email or web address] .
--- NOTE | 2024-08-26 14:02 | W.PN.ID1 ---
Date of Service
Date of Service: August 26, 2024
Today's Communication
Transition to oral Keflex.
Assessment / Plan
Bilateral lower extremity erythroderma
Bilateral lower extremity lymphedema
Frontotemporal dementia
HTN
Hypothyroidism
Gout
Morbid obesity
Recommendations:
Suspect erythroderma secondary to edema. Improved today.
Continue bilateral lower extremity compressive modalities with the use of Sumanth wrap's.
Lower extremity elevation above the level of the heart approximately 2 hours out of every 6.
Transition to oral keflex for 4 more days.
Chief Complaint
-: Cellulitis
Subjective / Review of Systems
Review of Systems: No Fever and No Chills
Vital Signs / Physical Exam
Vital Signs
Vital Signs
Temp Pulse Resp BP Pulse Ox
98.2 F 79 16 131/77 94
08/25/24 23:15 08/26/24 07:45 08/26/24 07:45 08/26/24 07:45 08/26/24 07:45
Physical Exam
Constitutional: No Acute Distress, Comfortable, Chronically Ill and Obese
Eyes: No Conjunctival Hemorrhage and Sclera Anicteric
Cardiovascular: S1/S2; Negative S3/S4
Pulmonary: Non Labored
Extremities: Edema (3+ B/L LE edema. Improved erythema)
Neurological: Awake and Alert
Psychological: Calm
Objective Data
Lab Data
Lab Results
08/25/24 06:23
08/26/24 06:23
Estimated Creat Clear 75 ml/min 08/26/24 06:23
Total Bilirubin 0.6 mg/dl (0.2-1.3) 08/24/24 10:35
AST 28 U/L (17-59) 08/24/24 10:35
ALT 19 U/L (0-50) 08/24/24 10:35
Alkaline Phosphatase 51 U/L (38-126) 08/24/24 10:35
Most recent labs reviewed.
Micro Results:
08/25/24 02:52 MRSA Screen - Final
Nose No Methicillin Resistant Staphylococcus aureus isolated.
Imaging:
08/24/2024 duplex ultrasound lower extremities: No evidence of DVT in either lower extremity
Care Review
Plan reviewed with: Physician (Hospitalist)
[2024-08-26 15:24] VITALS: BP 131/72
[2024-08-26] MEDS: KCL 40 MEQ PO (15:50)
--- NOTE | 2024-08-26 16:36 | CM ---
Placed a call to patient's to obtain information for assessment. Patient's stated that patient lives in the [facility] in [place] as he is cognitively impaired. Patient stated that he uses a walker at baseline. He needs assistance
with all ADLs, personal care, dressing and bathing. He has access to transportation and can get to his appointments and do his own shopping.
Patient has a prescription plan and meds are managed through the facility. He has a PCP.
He has never been to a SNF. He has never had VN services.
Patient's would like for patient to return there when stable.
Plan: Case management will continue to follow and assist with discharge planning. Back to [facility] when cleared for discharge.
[2024-08-26] MEDS: KEFLEX 500 MG PO ×2 (17:30→22:12)
[2024-08-26] MEDS: XARELTO 10 MG PO (17:30)
[2024-08-26] MEDS: KLONOPIN 0.5 MG PO (22:15)
[2024-08-26 23:25] VITALS: BP 107/64
[2024-08-27] MEDS: SYNTHROID 50 MCG PO (05:56)
[2024-08-27 06:00] VITALS: BMI 38.9
[2024-08-27 07:00] VITALS: BP 132/78
[2024-08-27 08:27] LABS: Blood Urea Nitrogen 25 mg/dl (9-20); Carbon Dioxide 32 mmol/L (22-30); Chloride 96 mmol/L (98-107); Estimated Creatinine Clearance 89 ml/min; Glucose 88 mg/dl (70-99); Potassium 4.1 mmol/L (3.5-5.1); Sodium 135 mmol/L (135-145); eGFR > 60.00
[2024-08-27] MEDS: RISPERDAL 1.5 MG PO ×2 (08:40→21:13)
[2024-08-27] MEDS: THORAZINE 25 MG PO ×2 (08:41→21:13)
[2024-08-27] MEDS: PEPCID 20 MG PO ×2 (08:41→21:13)
[2024-08-27] MEDS: PROTONIX 40 MG PO (08:41)
[2024-08-27] MEDS: ZYLOPRIM 100 MG PO (08:41)
[2024-08-27] MEDS: KEFLEX 500 MG PO ×4 (08:41→21:14)
[2024-08-27] MEDS: DEPAKOTE (12 HR RELEASE) 1000 MG PO ×2 (08:41→21:14)
[2024-08-27] MEDS: LASIX 40 MG IV (08:41)
--- NOTE | 2024-08-27 13:37 | CM ---
Addendum entered by MANA Cid 08/27/24 16:56:
attending updated.
Addendum entered by MANA Cid 08/27/24 16:50:
Spoke with PT who stated that patient is unable to ambulate and dependent level for most assistance.
Spoke with Ryann in admissions at [facility] who stated that she will f/u regarding patient, however, denied that she can take him back at his current functional status. Will need to discuss with family and obtain options.
Addendum entered by MANA Cid 08/27/24 13:50:
Received a call from Ryann who inquired as to whether patient is at baseline. She stated that they would not be able to support him if he is not able to use his walker or transition to his meals independently.
TT MD to make aware. Stat order placed for patient to work with PT to determine current functional status.
Original Note:
Spoke with attending who stated that patient is medically cleared for discharge/transfer back to [facility]. A tech answered the phone and stated that his nurse is Ryann but she is on her lunch break. Provided CM number and requested return call
from her to discuss discharge.
Plan: Case management will continue to follow and assist with discharge planning. Back to [facility] today.
--- NOTE | 2024-08-27 13:51 | W.PN.ID1 ---
Date of Service
Date of Service: August 27, 2024
Today's Communication
Sign off.
Assessment / Plan
Bilateral lower extremity erythroderma
Bilateral lower extremity lymphedema
Frontotemporal dementia
HTN
Hypothyroidism
Gout
Morbid obesity
Recommendations:
Suspect erythroderma secondary to edema. Continued improvement today.
Continue bilateral lower extremity compressive modalities with the use of Sumanth wrap's.
-Patient would likely benefit from wraps being in place for an entire 24-hour period. Tubigrip's can also be used.
Lower extremity elevation above the level of the heart approximately 2 hours out of every 6.
Continue keflex for 3 more days.
Nothing further to add from a Infectious Diseases standpoint.
Will see again at your request.
Chief Complaint
-: Cellulitis (B/L LE's)
Subjective / Review of Systems
Review of Systems: No Fever and No Chills
Vital Signs / Physical Exam
Vital Signs
Vital Signs
Temp Pulse Resp BP Pulse Ox
98.5 F 72 16 132/78 93
08/27/24 07:00 08/27/24 07:00 08/27/24 07:00 08/27/24 07:00 08/27/24 07:00
Physical Exam
Constitutional: No Acute Distress, Comfortable, Chronically Ill and Obese
Eyes: No Conjunctival Hemorrhage and Sclera Anicteric
Cardiovascular: S1/S2; Negative S3/S4
Pulmonary: Non Labored
Extremities: Edema (3+ B/L LE edema. Improved erythema.)
Neurological: Awake and Alert
Psychological: Calm
Objective Data
Lab Data
Lab Results
08/25/24 06:23
08/27/24 07:23
Estimated Creat Clear 89 ml/min 08/27/24 07:23
Total Bilirubin 0.6 mg/dl (0.2-1.3) 08/24/24 10:35
AST 28 U/L (17-59) 08/24/24 10:35
ALT 19 U/L (0-50) 08/24/24 10:35
Alkaline Phosphatase 51 U/L (38-126) 08/24/24 10:35
Most recent labs reviewed.
Micro Results:
08/25/24 02:52 MRSA Screen - Final
Nose No Methicillin Resistant Staphylococcus aureus isolated.
Imaging:
08/24/2024 duplex ultrasound lower extremities: No evidence of DVT in either lower extremity
[2024-08-27] MEDS: KLONOPIN 1 MG PO ×2 (14:29→21:19)
[2024-08-27 15:00] VITALS: BP 150/79
[2024-08-27 15:23] VITALS: BP 116/65; PULSE 95; O2SAT 94
--- NOTE | 2024-08-27 15:36 | W.PN.HOSP.TC ---
Today's Communication/Plan
-
DC planning
Change to oral Lasix daily
Assessment / Plan
Assessment / Plan
Physical Exam
General: No Apparent Distress, obese, Comfortable and Conversant
HEENT: Normocephalic and Anicteric
Respiratory: Clear
Cardiac: S1/S2 and Regular Rhythm
GI: Soft, Non Tender, Non Distended and Normal Bowel Sounds
Rectal: No bleeding
Genito-urinary:no hematuria
Musculoskeletal: edema in both lower extremities with redness, no tenderness.
Skin: Other (b/l legs : less edema, discoloration, non tender)
Neuro: Awake and Alert , disoriented to place, time. He followed commands
Psych: Calm
Worsening chronic B/L Jay edema likely due to edema, chronic venous insufficiency/ stasis edema
Doubt Jay cellulitis with absence of pain/ fever/ leukocytosis.
Negative US for DVT
- unremarkable pro BNP
- Empiric IV Cefazolin 2GM Q8H. ID is consulted.
- Elevate the LE, compression dressing.
- s/p IV Lasix BID. can c/w Laisx 40 mg QD
No signs of respiratory distress but patient is not reliable historian.
echo showed LVEF at 73 % with normal diastolic function
- Held Losartan to avoid low BP while on Lasix IV. Can resume now
EKG NSR
- Resume Losartan
# Diagnosis of CHF is not accurate
# Benign HTN
# Gait dysfunction
seems limited baseline/ wheelchair bound but can transfer
d/w wrapper caser,w ill consult PT/OT
# Factor V deficiency
On Chronic Xarelto
# hx of asthma
# HX FTD ( Frontotemporal dementia )
HX behavioral dysfunction
- HAND MOLDER AND CASTER Risperidone
- HAND MOLDER AND CASTER Clonazepam
- HAND MOLDER AND CASTER Divalproex
#Hypothyroid
- asymptomatic
- check TSH
- on LT4
#Gout
- not active, stable
- allopurinol
DVT Px: Xarelto
Full code
Total time spent to see the patient, examine the patient, review data and lab results, discuss the treatment plan with patient, wrapper caser, nursing staff around 57 minutes
Anticipated Discharge: Within 24 hours
Subjective/Interval History
-
Date of Service: August 27, 2024
He feels stiff and not sure he is able to leave hospital
Objective Data
-
Labs:
Laboratory Results
08/27/24
07:23
Sodium 135
Potassium 4.1
Chloride 96 L
Carbon Dioxide 32 H
BUN 25 H
Creatinine 1.1
Glucose 88
Calcium 9.0
Vital Signs:
Vital Signs
Temp Pulse Resp BP Pulse Ox
97.5 F 95 17 150/79 94
08/27/24 15:00 08/27/24 15:00 08/27/24 15:00 08/27/24 15:00 08/27/24 15:00
I&O
08/26/24 08/27/24 08/28/24
06:59 06:59 06:59
Intake Total 840 / 840 1320 / 1320
Output Total 1200 / 1200 2850 / 2850
Balance -360 / -360 -1530 / -1530
[2024-08-27] MEDS: XARELTO 10 MG PO (17:27)
[2024-08-27] MEDS: KLONOPIN 0.5 MG PO (21:14)
[2024-08-27 23:00] VITALS: BP 125/64
[2024-08-28 06:00] VITALS: BMI 37.3
[2024-08-28] MEDS: SYNTHROID 50 MCG PO (06:21)
[2024-08-28 07:00] VITALS: BP 128/71
[2024-08-28] MEDS: PROTONIX 40 MG PO (09:41)
[2024-08-28] MEDS: DEPAKOTE (12 HR RELEASE) 1000 MG PO ×2 (09:41→21:59)
[2024-08-28] MEDS: RISPERDAL 1.5 MG PO ×2 (09:41→21:59)
[2024-08-28] MEDS: KEFLEX 500 MG PO ×4 (09:41→21:59)
[2024-08-28] MEDS: ZYLOPRIM 100 MG PO (09:42)
[2024-08-28] MEDS: THORAZINE 25 MG PO ×2 (09:42→22:00)
[2024-08-28] MEDS: LASIX 40 MG PO (09:42)
[2024-08-28] MEDS: PEPCID 20 MG PO ×2 (09:42→21:59)
[2024-08-28] MEDS: KLONOPIN 1 MG PO ×2 (12:54→22:00)
[2024-08-28 15:00] VITALS: BP 115/70
[2024-08-28 15:31] VITALS: BP 119/70; PULSE 87; O2SAT 94
[2024-08-28] MEDS: XARELTO 10 MG PO (17:35)
[2024-08-28] MEDS: KLONOPIN 0.5 MG PO (21:59)
[2024-08-28 23:30] VITALS: BP 132/71
[2024-08-29 06:00] VITALS: BMI 37.5
[2024-08-29] MEDS: SYNTHROID 50 MCG PO (06:36)
[2024-08-29 07:30] VITALS: BP 123/67
[2024-08-29] MEDS: DEPAKOTE (12 HR RELEASE) 1000 MG PO ×2 (09:35→20:59)
[2024-08-29] MEDS: LASIX 40 MG PO (09:35)
[2024-08-29] MEDS: KEFLEX 500 MG PO ×4 (09:35→21:01)
[2024-08-29] MEDS: PEPCID 20 MG PO ×2 (09:35→20:59)
[2024-08-29] MEDS: ZYLOPRIM 100 MG PO (09:36)
[2024-08-29] MEDS: THORAZINE 25 MG PO ×2 (09:36→20:59)
[2024-08-29] MEDS: RISPERDAL 1.5 MG PO ×2 (09:36→20:59)
[2024-08-29] MEDS: PROTONIX 40 MG PO (09:36)
--- NOTE | 2024-08-29 11:24 | W.PN.HOSP.TC ---
Today's Communication/Plan
-
discussed with , she will bring records( please leave on chart).
Consult neurology, appreciate help
Will follow closely
Assessment / Plan
Assessment / Plan
Physical Exam
General: No Apparent Distress, obese, weak/ fatigue
HEENT: Normocephalic and Anicteric
Respiratory: Clear
Cardiac: S1/S2 and Regular Rhythm
GI: Soft, Non Tender, Non Distended and Normal Bowel Sounds
Rectal: No bleeding
Genito-urinary:no hematuria
Musculoskeletal: edema in both lower extremities with redness, no tenderness.
Skin: Other (b/l legs : less edema, discoloration, non tender)
Neuro: Awake and Alert , He followed commands but weakness noted
Psych: Calm
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
That history was provided by the when she visited him 08/28 at night to the nursing staff
I reviewed last admission in May, [facility]. No mention of such diagnosis on records but only chronic lower extremity weakness was noted.
I discussed with who is a retired nurse. She confirmed the treatment IVIG in September 2023. Patient followed with neurologist Dr. Janet Razo. Apparently, could not confirm diagnosis of Guillain-Espitia� at the time. Spinal tap was bloody and
they opted to treat with IVIG due to his clinical presentation the time.
Possible exacerbation at present time, will need workup for that. Appreciate neurology help, discussed the case at length.Will follow.
# History of Worsening chronic B/L Jay edema likely due to edema, chronic venous insufficiency/ stasis edema
Doubt Jay cellulitis with absence of pain/ fever/ leukocytosis.
Negative US for DVT
- unremarkable pro BNP
- Empiric IV Cefazolin 2GM Q8H. ID is consulted.
- Elevate the LE, compression dressing.
- s/p IV Lasix BID. can c/w Lasix 40 mg QD
No signs of respiratory distress but patient is not reliable historian.
echo showed LVEF at 73 % with normal diastolic function
- Held Losartan to avoid low BP while on Lasix IV. Can resume now
EKG NSR
- Resumed Losartan
# Diagnosis of CHF is not accurate
# Benign HTN
# Gait dysfunction
seems limited baseline/ wheelchair bound but can transfer
d/w behavioral health case manager,w ill consult PT/OT
# Factor V deficiency
On Chronic Xarelto
# hx of asthma
# HX FTD ( Frontotemporal dementia )
HX behavioral dysfunction
- TIE TAPE MACHINE OPERATOR Risperidone
- TIE TAPE MACHINE OPERATOR Clonazepam
- TIE TAPE MACHINE OPERATOR Divalproex
#Hypothyroid
- asymptomatic
- check TSH
- on LT4
#Gout
- not active, stable
- allopurinol
DVT Px: Xarelto
Full code
Total time spent to see the patient, examine the patient, review data and lab results, discuss the treatment plan with patient and his , neurologist, nursing staff around 57 minutes
Anticipated Discharge: > 48 hours
Subjective/Interval History
-
Date of Service: August 29, 2024
No chest pain
No sob
Objective Data
-
Vital Signs:
Vital Signs
Temp Pulse Resp BP Pulse Ox
97.9 F 70 16 123/67 95
08/29/24 07:30 08/29/24 09:35 08/29/24 07:30 08/29/24 09:35 08/29/24 07:30
I&O
08/28/24 08/29/24 08/30/24
06:59 06:59 06:59
Intake Total 1979 171 / 1710
Output Total 1949 165 / 165
Balance 60 / 60
--- NOTE | 2024-08-29 12:49 | CON.NEURO ---
Neuro Assessment/Plan
Assessment
Chronic lower extremity weakness leading to inability for the patient to lift legs off of bed with suggestion by patient's family of prior history of Guillain-Espitia� syndrome. Records from 8 months after the supposed diagnosis of GBS, from that
hospital, do not recite that diagnosis. The patient's outpatient neurologist, by report, also could not confirm the diagnosis of GBS.
Differential diagnosis for the patient's lower extremity weakness which is described as progressive, includes patient's prior history of alcoholism which may lead to a significant peripheral neuropathy, as well as more subacute abnormalities
including CIDP
Presume that the patient's cognitive disturbance is due to chronic alcoholism
Plan
check lumbar puncture for possible ? recurrent protein elevation and albumino-cytologic disassociation
Check EMG if possible as inpatient for possible changes consistent with GBS
Check MRI imaging of entire spine for potential causes with and without contrast
Check additional blood work for potential metabolic causes for symptoms
Consider initiation of high-dose steroids based on above results
Consider initiation of immunoglobulins based on above results
Rehabilitation evaluations and treatment
DVT prophylaxis
Obtain records from the patient's usual neurologist
Goal of normoglycemia
Will follow
Consultation
Order
Date of Consultation: 08/29/24
Requesting Provider: Hospitalists
Reason for Consult: Lower extremity weakness
Subjective/Objective
Subjective Data
Date of Service: August 29, 2024
Left-Handed
Patient was admitted to this hospital's emergency department on August 24, 2024 with progressive lower extremity edema. Patient at that time was also describing diffuse pain in legs. Patient's information is primarily obtained after review of
the patient's medical records and discussion with professional medical care providers as the patient himself has a prior history of dementia.
According to reports, the patient was diagnosed with Guillain-Espitia� syndrome at a local hospital. He was treated with immunoglobulin for a 5-day course and underwent lumbar puncture as well as neuroimaging. However, this was not confirmed by
medical records from that hospital and a later hospitalization. The hospitalization for lower extremity weakness was in September 2023 and the records available currently are from May 2024 which do not mention this diagnosis. Further, the
patient's usual outpatient local neurologist has indicated to the patient's family that the diagnosis of GBS was unclear.
Since the patient's admission to this hospital, the patient is described as having continued lower extremity weakness which has not significantly improved despite improvement of the patient's edema.
Patient reports progressive decline in gait function over the last several months. Began to use a walker in the past several months. It is not clear that the patient has undergone additional outpatient diagnostic workup for his lower extremity
weakness.
Objective Data
Vital Signs
Temp Pulse Resp BP Pulse Ox
36.6 C 70 16 123/67 95
08/29/24 07:30 08/29/24 09:35 08/29/24 07:30 08/29/24 09:35 08/29/24 07:30
Lab Results
08/25/24 06:23
08/27/24 07:23
Sodium 135 mmol/L (135-145) 08/27/24 07:23
Potassium 4.1 mmol/L (3.5-5.1) 08/27/24 07:23
BUN 25 mg/dl (9-20) H 08/27/24 07:23
Glucose 88 mg/dl (70-99) 08/27/24 07:23
Calcium 9.0 mg/dl (8.4-10.2) 08/27/24 07:23
Hjs-B-Pumyfnsrlod Pept 24.0 pg/ml 08/24/24 11:11
Patient Allergies
No Known Allergies Allergy (Verified 08/24/24 10:41)
Review of Systems
-
History Source: Patient
All other systems: Reviewed and negative
EENT: Negative Decreased Vision or Swallowing Difficulty
Respiratory: Negative Trouble Breathing
Cardiac: Negative Chest Pain
Abdomen/GI: Negative Incontinence of Stool
Genitourinary: Negative Incontinence
Musculoskeletal: Negative Back Pain or Neck Pain
Neuro: Other (edema and tingling in hands); Negative Dizzy or Headache
Physical Exam
-
General: No Apparent Distress and Appears Stated Age
Eyes: Round OU, [place] Conjunctivae and No Ptosis; Negative Able to visualize OU
HEENT: Anicteric and Moist Mucous Membranes
Neck: Full Range of Motion
Respiratory: No Dyspnea
Cardiac: No JVD
GI: Non-distended
Skin: Other (wrapped LE with gauze)
Extremities: No Clubbing, No Cyanosis and No Edema
Psych: Negative Intact Judgement/Insight
Extended Neurological Exam
Mood & Affect: Depressed
Attention Span & Concentration: Awake, Alert, Interactive and Moderate Difficulty with 2 Step Request
Memory: Reduced (for holiday) and Unable to Recall Personal History (with temporal notations)
Tremor: Hand Tremor Absent and Head Tremor Absent
Speech: Quality Unremarkable and Mildly Reduced Output
Cranial Nerve II: Left Eye: Pupillary Reactivity Unremarkable, Pupillary Size Unremarkable and Visual Cobb Intact
Cranial Nerve II: Right Eye: Pupillary Reactivity Unremarkable, Pupillary Size Unremarkable and Visual Cobb Intact
Cranial Nerves III, IV, : Extraocular Movement: Slow Saccades
Cranial Nerve VII: Facial Symmetry: Normal Facial Symmetry
Cranial Nerve VIII: Hearing: Unremarkable Hearing to Normal Conversational Volume
Cranial Nerves IX, X: Palate Movement: Palate Elevation Symmetric
Cranial Nerve XI: Shoulder Shrug: Unremarkable
Cranial Nerve XII: Tongue Protusion: Midline
Muscle Strength, Overall: Full in Upper Extremities and Other (Trace in bilateral lower extremities proximally and distally)
Muscle Bulk & Tone: Bulk Unremarkable and Tone Unremarkable
Pronator Drift: No Drift in Upper Extremities
Deep Tendon Reflexes: Absent Throughout
Vibration Sensation: Absent Distally
Touch Sensation: Unremarkable
Coordination: Nogsrp-yzkh-wjswsy Testing Unremarkable
Babinski Sign: Absent Bilaterally
Gait & Station: Unable to Assess
Data Reviewed
-
Labs: Report Reviewed
Reviewed with: Physician, Patient and Family
Old Records: Summarized
Medications
-
Active Medications
Generic Name Dose Route Start Last Admin
Trade Name Freq PRN Reason Stop Dose Admin
Acetaminophen 650 mg 08/24/24 16:44 08/25/24 09:07
Acetaminophen 325 Mg Tablet PO 09/21/24 16:43 650 mg
QIDPRN PRN Administration
mild pain/fever
Albuterol 2 puff 08/24/24 16:44
Albuterol Hfa [90 Mcg/Dose] Inhaler INH
R Q6HPRN PRN
sob
Protocol
Allopurinol 100 mg 08/25/24 08:00 08/29/24 09:36
Allopurinol 100 Mg Tablet PO 09/22/24 07:59 100 mg
DAILY PHOEBE Administration
Bisacodyl 10 mg 08/24/24 16:44
Bisacodyl 10 Mg Rectal Suppository RECTAL 09/21/24 16:43
[id number] PRN
constipation
Cephalexin HCl 500 mg 08/26/24 18:00 08/29/24 09:35
Cephalexin 500 Mg Capsule PO 08/30/24 23:59 500 mg
QID PHOEBE Administration
Chlorpromazine HCl 25 mg 08/24/24 20:00 08/29/24 09:36
Chlorpromazine 25 Mg Tablet PO 09/21/24 19:59 25 mg
BID PHOEBE Administration
Clonazepam 0.5 mg 08/24/24 22:00 08/28/24 21:59
Clonazepam 0.5 Mg Tablet PO 09/21/24 21:59 0.5 mg
HS PHOEBE Administration
Clonazepam 1 mg 08/24/24 16:44 08/28/24 22:00
Clonazepam 1 Mg Tablet PO 09/21/24 16:43 1 mg
BID@1300,2100 PHOEBE Administration
Divalproex Sodium 1,000 mg 08/24/24 20:00 08/29/24 09:35
Divalproex 500 Mg Delayed Release (12 Hr) Tablet PO 09/21/24 19:59 1,000 mg
BID PHOEBE Administration
Ergocalciferol 50,000 units 08/25/24 08:00 08/25/24 09:09
Ergocalciferol (Vitamin D-2) 93454 Units Capsule PO 09/22/24 07:59 50,000 units
WE PHOEBE Administration
Famotidine 20 mg 08/24/24 20:00 08/29/24 09:35
Famotidine 20 Mg Tablet PO 09/21/24 19:59 20 mg
BID PHOEBE Administration
Furosemide 40 mg 08/28/24 08:00 08/29/24 09:35
Furosemide 40 Mg Tablet PO 09/25/24 07:59 40 mg
DAILY PHOEBE Administration
Levothyroxine Sodium 50 mcg 08/25/24 06:00 08/29/24 06:36
Levothyroxine 50 Mcg Tablet PO 09/22/24 05:59 50 mcg
DAILY@0600 PHOEBE Administration
Pantoprazole Sodium 40 mg 08/25/24 08:00 08/29/24 09:36
Pantoprazole 40 Mg Delayed Release Tablet PO 09/22/24 07:59 40 mg
DAILY PHOEBE Administration
Polyethylene Glycol 17 grams 08/24/24 16:44
Polyethylene Glycol Powder 17 Grams Packet PO 09/21/24 16:43
DAILYPRN PRN
constipation
Risperidone 1.5 mg 08/24/24 20:00 08/29/24 09:36
Risperidone 1 Mg Tablet PO 09/21/24 19:59 1.5 mg
BID PHOEBE Administration
Rivaroxaban 10 mg 08/24/24 18:00 08/28/24 17:35
Rivaroxaban 10 Mg Tablet PO 09/21/24 17:59 10 mg
QPM PHOEBE Administration
Senna/Docusate Sodium 1 tablet 08/24/24 16:44 08/26/24 07:44
Docusate W/Senna (Rosita-Colace) Tablet PO 09/21/24 16:43 1 tablet
BIDPRN PRN Administration
constipation
Sodium Chloride 0 flush 08/24/24 17:00 08/26/24 12:48
Sodium Chloride 0.9% (Flush) Syringe IV 09/21/24 16:59 2 flush
PER PROTOCOL PHOEBE Administration
Home Medications
�Medication �Instructions �Recorded
acetaminophen 325 mg tablet 650 mg PO QIDPRN PRN mild 05/26/24
pain/fever
cyanocobalamin (vitamin B-12) 2,000 mcg PO DAILY Supplement 05/26/24
1,000 mcg tablet
ferrous sulfate 325 mg (65 mg 324 mg PO DAILY Supplement 05/26/24
iron) tablet
albuterol sulfate 90 mcg/actuation 2 puff inhalation R Q6HPRN PRN sob 08/24/24
aerosol inhaler
allopurinol 100 mg tablet 100 mg PO DAILY Gout 08/24/24
calcium carbonate (Tums) 400 mg PO Q4HPRN PRN gerd 08/24/24
capsaicin 0.1 % topical cream 1 applic topical DAILY 4 gram b/l 08/24/24
(Arthritis Pain Relief (capsaicin)) knee
chlorpromazine 25 mg tablet 25 mg PO BID Gastrointestinal Issue 08/24/24
clonazepam 0.5 mg tablet 0.5 mg PO HS Mental Health/Anxiety 08/24/24
clonazepam 1 mg tablet 1 mg PO BID@1300,2100 Mental 08/24/24
Health/Anxiety
divalproex 500 mg tablet,delayed 1,000 mg PO BID Neurological 08/24/24
release Condition
ergocalciferol (vitamin D2) 1,250 1,250 mcg PO WE Supplement 08/24/24
mcg (50,000 unit) capsule
famotidine 20 mg tablet (Pepcid) 20 mg PO BID Gastrointestinal Issue 08/24/24
fluticasone 250 mcg-salmeterol 50 1 inh inhalation R BID 08/24/24
mcg/dose blistr powdr for Lung/Breathing Issues
inhalation (Advair Diskus)
furosemide 40 mg tablet (Lasix) 40 mg PO BID Fluid 08/24/24
Retention/Swelling
hydrocortisone 2.5 % topical cream 1 applic topical TID 08/24/24
forehead,center face,chin
lanolin alcohols-mineral 1 applic topical HS lower 08/24/24
oil-w.petrolatum-ceresin topical estremites
cream (Minerin Creme topical)
levothyroxine 50 mcg tablet 50 mcg PO DAILY Thyroid 08/24/24
(Synthroid)
loratadine 10 mg tablet (Claritin) 10 mg PO DAILY Allergies 08/24/24
losartan 25 mg tablet 25 mg PO DAILY Blood Pressure 08/24/24
nicotine 21 mg/24 hr daily 1 patch transdermal DAILY nicotine 08/24/24
transdermal patch
pantoprazole 40 mg tablet,delayed 40 mg PO DAILY Gastrointestinal 08/24/24
release (Protonix) Issue
risperidone 1 mg tablet (Risperdal) 1.5 mg PO BID Mental Health 08/24/24
rivaroxaban 10 mg tablet (Xarelto) 10 mg PO QPM Blood Clot 08/24/24
Prevention/Tx
triamcinolone acetonide 0.025 % 1 applic topical DAILY lower legs 08/24/24
topical ointment and ankles
Past History
Past History
ED Past Medical History: Asthma, Cancer (Colon cancer), CHF, GERD, HTN, Hypercholesterolemia, RI, Psychiatric (Bipolar affective disorder), Other (Factor V Leiden, Frontotemporal dementia, chronic venous insufficiency with stasis edema, gout, morbid
obesity), Other (Vitamin B12 deficiency, vitamin D deficiency, chronic venous stasis, iron deficiency anemia, obstructive sleep apnea with noncompliance) and Other (Pulmonary saddle embolism with cor pulmonale)
ED Past Surgical History: None and Bowel resection (2019)
Social History
Tobacco: Smoker
Alcohol: Chronic alcoholic
Drug: None
Personal:
Living: assisted living
Employment: Retired
Family History
Family History: Other (Reviewed and noncontributory)
--- NOTE | 2024-08-29 13:22 | W.PN.HOSP.TC ---
Today's Communication/Plan
-
Note of 08/28
Assessment / Plan
Assessment / Plan
Physical Exam
General: No Apparent Distress, obese, weak/ fatigue
HEENT: Normocephalic and Anicteric
Respiratory: Clear
Cardiac: S1/S2 and Regular Rhythm
GI: Soft, Non Tender, Non Distended and Normal Bowel Sounds
Rectal: No bleeding
Genito-urinary:no hematuria
Musculoskeletal: edema in both lower extremities with redness, no tenderness.
Skin: Other (b/l legs : less edema, discoloration, non tender)
Neuro: Awake and Alert , He followed commands but weakness noted
Psych: Calm
# History of Worsening chronic B/L Jay edema likely due to edema, chronic venous insufficiency/ stasis edema
Doubt Jay cellulitis with absence of pain/ fever/ leukocytosis.
Negative US for DVT
- unremarkable pro BNP
- Empiric IV Cefazolin 2GM Q8H. ID is consulted. on Oral keflex.
- Elevate the LE, compression dressing.
- s/p IV Lasix BID. can c/w Lasix 40 mg QD
No signs of respiratory distress but patient is not reliable historian.
echo showed LVEF at 73 % with normal diastolic function
- Held Losartan to avoid low BP while on Lasix IV. Can resume now
EKG NSR
- Resumed Losartan
# Diagnosis of CHF is not accurate
# Benign HTN
# Gait dysfunction
Seems weakness over all
No fever, no signs of active infection
Per pt, he was independent walking when he went to [facility] 2 months ago but since then his gait declined and started to use walker with significant limitation.
Per Review of records in May , diagnosis of chronic lower extremity weakness
Consulted PT, recommended to SNF.
# Factor V deficiency
On Chronic Xarelto
# hx of asthma
# HX FTD ( Frontotemporal dementia )/ Bipolar disorder
HX behavioral dysfunction
- METAL FURNITURE REPAIRER Risperidone
- METAL FURNITURE REPAIRER Clonazepam
- METAL FURNITURE REPAIRER Divalproex
#Hypothyroid
TSH around 5
c/w Synthroid
Recheck TSH
#Gout
- not active, stable
- allopurinol
DVT Px: Xarelto
Full code
Total time spent to see the patient, examine the patient, review data and lab results, discuss the treatment plan with patient , nursing staff around 57 minutes
Anticipated Discharge: 24 - 48 hours
Subjective/Interval History
-
Date of Service: August 28, 2024
Continues to feel better with less edema in legs
Await placement to rehab
Objective Data
-
Vital Signs:
Vital Signs
Temp Pulse Resp BP Pulse Ox
97.9 F 70 16 123/67 95
08/29/24 07:30 08/29/24 09:35 08/29/24 07:30 08/29/24 09:35 08/29/24 07:30
I&O
08/28/24 08/29/24 08/30/24
06:59 06:59 06:59
Intake Total 1979 1710 / 1710
Output Total 1949 165 / 1650
Balance 30 60 / 60
[2024-08-29] MEDS: KLONOPIN 1 MG PO ×2 (14:10→21:01)
[2024-08-29 15:24] LABS: INR 1.06; PT 14.3 Sec (11.4-14.6)
[2024-08-29 15:45] VITALS: BP 120/67
[2024-08-29] MEDS: XARELTO 10 MG PO (18:05)
[2024-08-29] MEDS: KLONOPIN 0.5 MG PO (21:00)
[2024-08-29 23:00] VITALS: BP 113/69
[2024-08-30] VITALS (9 sets, daily range): BP systolic 78–150; BP diastolic 62–84; BMI 36.8
[2024-08-30] MEDS: SYNTHROID 50 MCG PO (06:01)
--- NOTE | 2024-08-30 08:30 | PTCARENOTE ---
physical therapist reported to this nurse that pt was on floor. this nurse went in to room and found pt with one knee on the floor and leaning on bed to get up. pt assisted up and back to bed. pt reports no pain at this time. on assessment, no
bruising or broken skin present. no preceding symptoms. pt instructed to use call edmonds for assistance with ambulation. call edmonds within reach. will continue to monitor.
--- NOTE | 2024-08-30 08:39 | W.PN.HOSP.TC ---
Today's Communication/Plan
-
LP. MRI of back.
Assessment / Plan
Assessment / Plan
Physical Exam
General: No Apparent Distress, obese, weak/ fatigue
HEENT: Normocephalic and Anicteric
Respiratory: Clear
Cardiac: S1/S2 and Regular Rhythm
GI: Soft, Non Tender, Non Distended and Normal Bowel Sounds
Rectal: No bleeding
Genito-urinary:no hematuria
Musculoskeletal: edema in both lower extremities with redness, no tenderness.
Skin: Other (b/l legs : less edema, discoloration, non tender)
Neuro: Awake and Alert , He followed commands but weakness noted especially bilateral lower extremities.
Psych: Calm
A/P:
Acute on chronic lower extremity weakness:
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
Neurology consulted and also added to differential diagnosis alcohol related versus CIDP
Plan for MRI cervical and thoracic spine
Plan for LP and EMG
Further use of high-dose steroids and or immunoglobulins will be reevaluated depending on workup
PT OT eval
Possible bilateral cellulitis:
Status post IV antibiotics and finishing course of oral antibiotic today on 08/30
ID consulted initially and they signed off.
Remains afebrile
Chronic lower extremity lymphedema:
On furosemide 40 mg p.o. daily
Elevate lower extremity as much as possible
Ruled out CHF:
Reviewed latest echocardiogram on 08/26 and EF 73% and normal diastolic function.
Hypertension:
On losartan 25 mg p.o. daily as outpatient but currently on hold due to relatively low to normal blood pressures
Factor V deficiency:
Continue Xarelto
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
Continue chlorpromazine, clonazepam, risperidone, and divalproex sodium
Hypothyroidism:
Continue levothyroxine 50 mcg p.o. daily
Gout:
Continue allopurinol 100 mg p.o. daily
DVT prophylaxis:
Xarelto
CODE STATUS:
Full code
Total time spent on today's encounter was 52 minutes which included time spent in counseling the patient/family regarding diagnosis and treatment plan as listed above, goals of care, and symptom management. Case was discussed with nursing staff,
specialists, and care coordinators/case management. All labs and imaging personally reviewed by me. Remainder the time spent in detailed review of previous records, lab data, imaging, and other medical provider documentation.
Anticipated Discharge: > 48 hours
Subjective/Interval History
-
Date of Service: August 30, 2024
Patient very weak in his legs. No chest pain or shortness of breath. Afebrile
Objective Data
-
Labs:
Laboratory Results
08/30/24
08:24
WBC Pending
Hgb Pending
Hct Pending
Plt Count Pending
Sodium Pending
Potassium Pending
Chloride Pending
Carbon Dioxide Pending
BUN Pending
Creatinine Pending
Glucose Pending
Calcium Pending
Vital Signs:
Vital Signs
Temp Pulse Resp BP Pulse Ox
98.3 F 66 16 122/73 95
08/30/24 07:43 08/30/24 07:43 08/30/24 07:43 08/30/24 07:43 08/30/24 07:43
I&O
08/29/24 08/30/24 08/31/24
06:59 06:59 06:59
Intake Total 1710 / 1710 960 / 960
Output Total 1650 / 1650 800 / 800
Balance 60 / 60 160 / 160
[2024-08-30 09:04] LABS: Hematocrit 35.4 % (39.0-52.0); Hemoglobin 11.9 g/dL (13.0-18.0); Mean Corp Hgb Conc. 33.6 g/dL (33.0-37.0); Mean Corpuscular Hgb 26.9 pg (27.0-31.0); Mean Corpuscular Volume 79.9 fL (80.0-94.0); Mean Platelet Volume 9.7 fL (7.4-10.4); Platelet Count 131 10^3/uL (130-400); Red Blood Cell Count 4.43 10^6/uL (4.70-6.10); Red Cell Dist. Width 20.7 % (11.5-14.5); White Blood Cell Count 5.6 10^3/uL (4.8-10.8)
[2024-08-30 09:16] LABS: Blood Urea Nitrogen 27 mg/dl (9-20); Calcium 8.9 mg/dl (8.4-10.2); Carbon Dioxide 33 mmol/L (22-30); Chloride 93 mmol/L (98-107); Estimated Creatinine Clearance 86 ml/min; Glucose 86 mg/dl (70-99); Potassium 3.8 mmol/L (3.5-5.1); Sodium 134 mmol/L (135-145); eGFR > 60.00
[2024-08-30] MEDS: DEPAKOTE (12 HR RELEASE) 1000 MG PO ×2 (09:26→20:33)
[2024-08-30] MEDS: KEFLEX 500 MG PO ×4 (09:27→20:37)
[2024-08-30] MEDS: LASIX 40 MG PO (09:30)
[2024-08-30] MEDS: PEPCID 20 MG PO ×2 (09:30→20:33)
[2024-08-30] MEDS: PROTONIX 40 MG PO (09:30)
[2024-08-30] MEDS: THORAZINE 25 MG PO ×2 (09:31→20:34)
[2024-08-30] MEDS: RISPERDAL 1.5 MG PO ×2 (09:31→20:33)
[2024-08-30] MEDS: ZYLOPRIM 100 MG PO (09:31)
[2024-08-30 09:32] LABS: TSH 8.39 uIU/ml (0.47-4.68)
[2024-08-30] MEDS: ATIVAN 1 MG PO (10:31)
[2024-08-30 11:16] LABS: Erythrocyte Sed Rate 31 mm/hour (0-20)
[2024-08-30 15:52] LABS: Spinal Fluid Glucose 64 mg/dl (40-70); Spinal Fluid Protein 69 mg/dl (12-60)
[2024-08-30] MEDS: KLONOPIN PO (16:09)
[2024-08-30 16:29] LABS: CSF Color Colorless; CSF Tube # 1; CSF Tube # Clarity Clear; Red Cell Count/CSF 52 mm^3
[2024-08-30 16:31] LABS: White Blood Cell Count/CSF 7 mm^3 (0-5)
[2024-08-30 16:32] LABS: CSF Clarity Clear; CSF Color Colorless; CSF Tube # 2; Red Cell Count/CSF 10 mm^3
[2024-08-30 16:33] LABS: White Cell Count/CSF 6 mm^3 (0-5)
[2024-08-30 16:43] LABS: CSF Lymphocytes 95 %; Spinal Fluid Macrophages 5 %
[2024-08-30 16:48] LABS: Spinal Fluid Lymphocytes 98 %; Spinal Fluid Macrophages 2 %
--- NOTE | 2024-08-30 17:02 | CM ---
Reviewed attending note. Clinical w/u still in progress. Cm will get in touch with family to discuss SNF options as patient's memory care stating that they would be unable to take patient at current level of functioning.
Plan: Case management will continue to follow and assist with discharge planning. SNF when stable, one is found.
[2024-08-30] MEDS: XARELTO 10 MG PO (17:20)
[2024-08-30] MEDS: KLONOPIN 0.5 MG PO (20:37)
[2024-08-30] MEDS: KLONOPIN 1 MG PO (20:38)
[2024-08-31] MEDS: SYNTHROID 50 MCG PO (05:24)
[2024-08-31 06:00] VITALS: BMI 36.8
[2024-08-31 07:36] VITALS: BP 119/63
[2024-08-31 07:59] LABS: Hematocrit 34.3 % (39.0-52.0); Hemoglobin 11.4 g/dL (13.0-18.0); Mean Corp Hgb Conc. 33.2 g/dL (33.0-37.0); Mean Corpuscular Hgb 26.8 pg (27.0-31.0); Mean Corpuscular Volume 80.7 fL (80.0-94.0); Mean Platelet Volume 9.3 fL (7.4-10.4); Platelet Count 123 10^3/uL (130-400); Red Blood Cell Count 4.25 10^6/uL (4.70-6.10); Red Cell Dist. Width 20.9 % (11.5-14.5); White Blood Cell Count 5.6 10^3/uL (4.8-10.8)
[2024-08-31] MEDS: ZYLOPRIM 100 MG PO (07:59)
[2024-08-31] MEDS: DEPAKOTE (12 HR RELEASE) 1000 MG PO ×2 (07:59→19:52)
[2024-08-31] MEDS: PEPCID 20 MG PO ×2 (07:59→19:51)
[2024-08-31] MEDS: RISPERDAL 1.5 MG PO ×2 (07:59→19:52)
[2024-08-31] MEDS: PROTONIX 40 MG PO (08:02)
[2024-08-31] MEDS: LASIX 40 MG PO (08:02)
[2024-08-31] MEDS: THORAZINE 25 MG PO ×2 (08:02→19:52)
[2024-08-31 08:28] LABS: Blood Urea Nitrogen 26 mg/dl (9-20); Calcium 8.6 mg/dl (8.4-10.2); Carbon Dioxide 33 mmol/L (22-30); Chloride 95 mmol/L (98-107); Estimated Creatinine Clearance 85 ml/min; Glucose 82 mg/dl (70-99); Potassium 3.8 mmol/L (3.5-5.1); Sodium 136 mmol/L (135-145); eGFR > 60.00
--- NOTE | 2024-08-31 08:56 | W.PN.HOSP.TC ---
Addendum entered and electronically signed by Ghassan Aggarwal MD 08/31/24 17:40:
updated over the phone today
Original Note:
Today's Communication/Plan
-
MRI cervical and thoracic spine. Neurology reevaluation.
Assessment / Plan
Assessment / Plan
Physical Exam
General: No Apparent Distress, obese, weak/ fatigue
HEENT: Normocephalic and Anicteric
Respiratory: Clear
Cardiac: S1/S2 and Regular Rhythm
GI: Soft, Non Tender, Non Distended and Normal Bowel Sounds
Rectal: No bleeding
Genito-urinary:no hematuria
Musculoskeletal: edema in both lower extremities with redness, no tenderness.
Skin: Other (b/l legs : less edema, discoloration, non tender)
Neuro: Awake and Alert , He followed commands but weakness noted especially bilateral lower extremities.
Psych: Calm
A/P:
Acute on chronic lower extremity weakness:
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
Neurology consulted and also added to differential diagnosis alcohol related versus CIDP--> so far no neurological diagnoses that require specific treatment.
Discussed with neurology today on 08/31 and recommended ongoing efforts for rehab
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
LP with mild protein elevation but no evidence of demyelinating disease and no true albumin-cytologic dissociation.
MRI cervical and thoracic with no abnormal cord signal but some multilevel degenerative changes.
PT OT eval
Possible bilateral cellulitis:
Status post IV antibiotics and finishing course of oral antibiotic today on 08/30
ID consulted initially and they signed off.
Remains afebrile
Right parotid nodule:
Will need further outpatient workup with ultrasound and or other modalities
Chronic lower extremity lymphedema:
On furosemide 40 mg p.o. daily
Elevate lower extremity as much as possible
Ruled out CHF:
Reviewed latest echocardiogram on 12/26 and EF 73% and normal diastolic function.
Hypertension:
On losartan 25 mg p.o. daily as outpatient but currently on hold due to relatively low to normal blood pressures
Factor V deficiency:
Continue Xarelto
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
Continue chlorpromazine, clonazepam, risperidone, and divalproex sodium
Hypothyroidism:
Continue levothyroxine 50 mcg p.o. daily
Gout:
Continue allopurinol 100 mg p.o. daily
DVT prophylaxis:
Xarelto
CODE STATUS:
Full code
Total time spent on today's encounter was 52 minutes which included time spent in counseling the patient/family regarding diagnosis and treatment plan as listed above, goals of care, and symptom management. Case was discussed with nursing staff,
specialists, and care coordinators/case management. All labs and imaging personally reviewed by me. Remainder the time spent in detailed review of previous records, lab data, imaging, and other medical provider documentation.
Anticipated Discharge: 24 - 48 hours
Subjective/Interval History
-
Date of Service: August 31, 2024
Patient reports lower extremity weakness. No chest pain or shortness of breath. Afebrile
Objective Data
-
Labs:
Laboratory Results
08/31/24
07:09
WBC 5.6
Hgb 11.4 L
Hct 34.3 L
Plt Count 123 L
Sodium 136
Potassium 3.8
Chloride 95 L
Carbon Dioxide 33 H
BUN 26 H
Creatinine 1.1
Glucose 82
Calcium 8.6
Vital Signs:
Vital Signs
Temp Pulse Resp BP Pulse Ox
97.8 F 74 18 119/63 94
08/31/24 07:36 08/31/24 08:02 08/31/24 07:36 08/31/24 08:02 08/31/24 07:36
I&O
08/30/24 08/31/24 09/01/24
06:59 06:59 06:59
Intake Total 960 / 960 1080 / 1080
Output Total 800 / 800
Balance 160 / 160 1080 / 1080
--- NOTE | 2024-08-31 10:17 | NS.EMG ---
Electromyogram (EMG) Study
EMG/NCS Summary
EMG/nerve conduction study was completed in the patient's hospital room.
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
Full dictated report, tabular data, and wave forms to follow.
[2024-08-31] MEDS: ATIVAN 1 MG IV (10:55)
--- NOTE | 2024-08-31 11:06 | W.PN.NEURO.1 ---
Today's Communication / Plan
-
MRI cervical and thoracic spine
Neuro Assessment/Plan
Assessment
Chronic lower extremity weakness leading to inability for the patient to lift legs off of bed with suggestion by patient's family of prior history of Guillain-Espitia� syndrome. Records from 8 months after the supposed diagnosis of GBS, from that
hospital, do not recite that diagnosis. The patient's outpatient neurologist, by report, also could not confirm the diagnosis of GBS.
EMG discussed with Dr Gant, length dependent axonal sensorimotor neuropathy, with chronic denervation/reinnervation changes in the lower leg, preserved in quads, presumed due to alcohol.
LP with 4 cc fluid before drying up. CSF protein 69, glc 64, WBC 7, RBC 52, mild protein elevation, in this case with no evidence of demyelinating, likely spinal stenosis related, as opposed to true albumino-cytologic disassociation. Awaiting MRI
spine to confirm and looking for any cord compression though the clinical picture and EMG suggests peripheral neuropathy
with this data, it is unlikely that I will find anything that I can treat.
Presume that the patient's cognitive disturbance is due to chronic alcoholism
Plan
Check MRI imaging of entire spine for potential causes with and without contrast
Will follow
Subjective/Objective
Subjective Data
Date of Service: August 31, 2024
patient continues with bilateral lower ext weakenss
Objective Data
Vital Signs
Temp Pulse Resp BP Pulse Ox
36.6 C 74 18 119/63 94
08/31/24 07:36 08/31/24 08:02 08/31/24 07:36 08/31/24 08:02 08/31/24 07:36
Lab Results
08/31/24 07:09
08/31/24 07:09
PT 14.3 Sec (11.4-14.6) 08/29/24 15:06
INR 1.06 08/29/24 15:06
Sodium 136 mmol/L (135-145) 08/31/24 07:09
Potassium 3.8 mmol/L (3.5-5.1) 08/31/24 07:09
BUN 26 mg/dl (9-20) H 08/31/24 07:09
Glucose 82 mg/dl (70-99) 08/31/24 07:09
Calcium 8.6 mg/dl (8.4-10.2) 08/31/24 07:09
Oqh-V-Hkgumkmdioz Pept 24.0 pg/ml 08/24/24 11:11
Patient Allergies
No Known Allergies Allergy (Verified 08/24/24 10:41)
Physical Exam
-
Awake and alert, interactive, cooperative, disoriented
VFF, EOMI, face symmetric
motor 4/5 b/l UE, 1-2/5 b/l LE
sensation intact to touch, absent to vibration
DTR absent
[2024-08-31] MEDS: KLONOPIN 1 MG PO ×2 (13:10→21:45)
[2024-08-31 15:21] VITALS: BP 124/72
[2024-08-31] MEDS: XARELTO 10 MG PO (17:22)
[2024-08-31] MEDS: KLONOPIN 0.5 MG PO (21:45)
[2024-08-31 23:25] VITALS: BP 113/71
[2024-09-01 06:00] VITALS: BMI 36.9
[2024-09-01] MEDS: SYNTHROID 50 MCG PO (06:33)
[2024-09-01 06:40] LABS: % Basophils 0.7 % (0-2); % Eosinophils 7.6 % (0-6); % Immature Granulocytes 0.5 % (0-0.5); % Lymphocytes 30.5 % (20.5-51.1); % Monocytes 13.7 % (1.7-9.3); Absolute Eosinophils 0.4 10^3/uL (0-0.7); Absolute Lymphocytes 1.8 10^3/uL (1.2-3.4); Absolute Monocytes 0.8 10^3/uL (0.1-0.6); Absolute Neutrophils 2.7 10^3/uL (1.4-6.5); Hematocrit 34.5 % (39.0-52.0); Hemoglobin 11.3 g/dL (13.0-18.0); Mean Corp Hgb Conc. 32.8 g/dL (33.0-37.0); Mean Corpuscular Hgb 26.4 pg (27.0-31.0); Mean Corpuscular Volume 80.6 fL (80.0-94.0); Nucleated Red Blood Cells % 0 % (-); Platelet Count 125 10^3/uL (130-400); Red Blood Cell Count 4.28 10^6/uL (4.70-6.10); Red Cell Dist. Width 20.7 % (11.5-14.5); White Blood Cell Count 5.8 10^3/uL (4.8-10.8)
[2024-09-01 07:00] VITALS: BP 125/71
[2024-09-01 07:09] LABS: Blood Urea Nitrogen 24 mg/dl (9-20); Calcium 8.7 mg/dl (8.4-10.2); Carbon Dioxide 33 mmol/L (22-30); Chloride 93 mmol/L (98-107); Estimated Creatinine Clearance 94 ml/min; Glucose 83 mg/dl (70-99); Potassium 3.8 mmol/L (3.5-5.1); Sodium 136 mmol/L (135-145); eGFR > 60.00
[2024-09-01] MEDS: DEPAKOTE (12 HR RELEASE) 1000 MG PO ×2 (08:00→20:36)
[2024-09-01] MEDS: PEPCID 20 MG PO ×2 (08:01→20:37)
[2024-09-01] MEDS: RISPERDAL 1.5 MG PO ×2 (08:01→20:37)
[2024-09-01] MEDS: THORAZINE 25 MG PO ×2 (08:02→20:37)
[2024-09-01] MEDS: PROTONIX 40 MG PO (08:02)
[2024-09-01] MEDS: ZYLOPRIM 100 MG PO (08:02)
[2024-09-01] MEDS: LASIX 40 MG PO (08:03)
[2024-09-01 09:02] LABS: Albumin 3.09 g/dL (3.75-5.01); Alpha 1 Globulin 0.27 g/dL (0.19-0.46); Alpha 2 Globulin 0.84 g/dL (0.48-1.05); SPEP IFE Reflex Not Done; Total Protein-Electrophoresis 6.1 g/dL (6.3-8.2)
[2024-09-01] MEDS: DRISDOL (VITAMIN D2) 50000 UNITS PO (09:34)
--- NOTE | 2024-09-01 09:51 | W.PN.HOSP.TC ---
Today's Communication/Plan
-
PT OT. Discharge plan
Assessment / Plan
Assessment / Plan
Physical Exam
General: No Apparent Distress, obese, weak/ fatigue
HEENT: Normocephalic and Anicteric
Respiratory: Clear
Cardiac: S1/S2 and Regular Rhythm
GI: Soft, Non Tender, Non Distended and Normal Bowel Sounds
Rectal: No bleeding
Genito-urinary:no hematuria
Musculoskeletal: edema in both lower extremities with redness, no tenderness.
Skin: Other (b/l legs : less edema, discoloration, non tender)
Neuro: Awake and Alert , He followed commands but weakness noted especially bilateral lower extremities.
Psych: Calm
A/P:
Acute on chronic lower extremity weakness:
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
Neurology consulted and also added to differential diagnosis alcohol related versus CIDP--> so far no neurological diagnoses that require specific treatment.
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
LP with mild protein elevation but no evidence of demyelinating disease and no true albumin-cytologic dissociation.
MRI cervical and thoracic with no abnormal cord signal but some multilevel degenerative changes.
PT OT eval
Discussed with neurology on 08/31 and recommended ongoing efforts for rehab and no medications treatment available at the moment
Discussed with over the phone yesterday
Possible bilateral cellulitis:
Status post IV antibiotics and finishing course of oral antibiotic today on 08/30
ID consulted initially and they signed off.
Remains afebrile
Right parotid nodule:
Will need further outpatient workup with ultrasound and or other modalities
Chronic lower extremity lymphedema:
On furosemide 40 mg p.o. daily
Elevate lower extremity as much as possible
Ruled out CHF:
Reviewed latest echocardiogram on 08/26 and EF 73% and normal diastolic function.
Hypertension:
On losartan 25 mg p.o. daily as outpatient but currently on hold due to relatively low to normal blood pressures
Factor V deficiency:
Continue Xarelto
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
Continue chlorpromazine, clonazepam, risperidone, and divalproex sodium
Hypothyroidism:
Continue levothyroxine 50 mcg p.o. daily
Gout:
Continue allopurinol 100 mg p.o. daily
DVT prophylaxis:
Xarelto
CODE STATUS:
Full code
Anticipated Discharge: 24 - 48 hours
Subjective/Interval History
-
Date of Service: September 01, 2024
Patient with generalized weakness lower extremity weakness. Afebrile
Objective Data
-
Labs:
Laboratory Results
09/01/24
06:19
WBC 5.8
Hgb 11.3 L
Hct 34.5 L
Plt Count 125 L
Sodium 136
Potassium 3.8
Chloride 93 L
Carbon Dioxide 33 H
BUN 24 H
Creatinine 1.0
Glucose 83
Calcium 8.7
Vital Signs:
Vital Signs
Temp Pulse Resp BP Pulse Ox
97.6 F 67 18 125/71 97
09/01/24 07:00 09/01/24 07:00 09/01/24 07:00 09/01/24 07:00 09/01/24 07:00
I&O
08/31/24 09/01/24 09/02/24
06:59 06:59 06:59
Intake Total 1080 / 1080 1200 / 1200
Balance 1080 / 1080 1200 / 1200
[2024-09-01] MEDS: KLONOPIN 1 MG PO ×2 (12:51→20:36)
[2024-09-01 14:50] VITALS: BP 149/82
[2024-09-01] MEDS: XARELTO 10 MG PO (17:56)
[2024-09-01] MEDS: KLONOPIN 0.5 MG PO (22:43)
[2024-09-01 23:35] VITALS: BP 131/70
[2024-09-01 23:36] VITALS: BP 131/70
[2024-09-02] MEDS: SYNTHROID 50 MCG PO (04:23)
[2024-09-02 06:00] VITALS: BMI 36.8
[2024-09-02 07:26] VITALS: BP 124/63
--- NOTE | 2024-09-02 07:30 | W.PN.HOSP.TC ---
Addendum entered and electronically signed by Ghassan Aggarwal MD 09/02/24 15:03:
URVASHI upon admission, resolved.
Original Note:
Today's Communication/Plan
-
Discharge planning
Assessment / Plan
Assessment / Plan
Physical Exam
General: No Apparent Distress, obese, weak/ fatigue
HEENT: Normocephalic and Anicteric
Respiratory: Clear
Cardiac: S1/S2 and Regular Rhythm
GI: Soft, Non Tender, Non Distended and Normal Bowel Sounds
Rectal: No bleeding
Genito-urinary:no hematuria
Musculoskeletal: edema in both lower extremities with redness, no tenderness.
Skin: Other (b/l legs : less edema, discoloration, non tender)
Neuro: Awake and Alert , He followed commands but weakness noted especially bilateral lower extremities.
Psych: Calm
A/P:
Acute on chronic lower extremity weakness:
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
Neurology consulted and also added to differential diagnosis alcohol related versus CIDP--> so far no neurological diagnoses that require specific treatment.
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
LP with mild protein elevation but no evidence of demyelinating disease and no true albumin-cytologic dissociation.
MRI cervical and thoracic with no abnormal cord signal but some multilevel degenerative changes.
PT OT eval
Discussed with neurology on 08/31 and recommended ongoing efforts for rehab and no medications treatment available at the moment
Discussed with over the phone prior
Medically ready for discharge--> egg caser for discharge disposition
Possible bilateral cellulitis:
Status post IV antibiotics and finishing course of oral antibiotic, last day on 08/30
ID consulted initially and they signed off.
Remains afebrile
Right parotid nodule:
Will need further outpatient workup with ultrasound and or other modalities
Chronic lower extremity lymphedema:
On furosemide 40 mg p.o. daily
Elevate lower extremity as much as possible
Ruled out CHF:
Reviewed latest echocardiogram on 08/26 and EF 73% and normal diastolic function.
Hypertension:
On losartan 25 mg p.o. daily as outpatient but currently on hold due to relatively low to normal blood pressures. Can restart upon discharge if indicated.
Factor V deficiency:
Continue Xarelto
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
Continue chlorpromazine, clonazepam, risperidone, and divalproex sodium
Hypothyroidism:
Continue levothyroxine 50 mcg p.o. daily
Gout:
Continue allopurinol 100 mg p.o. daily
DVT prophylaxis:
Xarelto
CODE STATUS:
Full code
Anticipated Discharge: Today
Subjective/Interval History
-
Date of Service: September 02, 2024
Patient feels better overall. Afebrile
Objective Data
-
Vital Signs:
Vital Signs
Temp Pulse Resp BP Pulse Ox
98.5 F 63 15 124/63 95
09/02/24 07:26 09/02/24 07:26 09/02/24 07:26 09/02/24 07:26 09/02/24 07:26
I&O
09/01/24 09/02/24 09/03/24
06:59 06:59 06:59
Intake Total 1200 / 1200 2340 / 2340
Balance 1200 / 1200 2340 / 2340
[2024-09-02] MEDS: LASIX 40 MG PO (09:12)
[2024-09-02] MEDS: PEPCID 20 MG PO ×2 (09:12→20:43)
[2024-09-02] MEDS: RISPERDAL 1.5 MG PO ×2 (09:12→20:43)
[2024-09-02] MEDS: PROTONIX 40 MG PO (09:14)
[2024-09-02] MEDS: DEPAKOTE (12 HR RELEASE) 1000 MG PO ×2 (09:14→20:42)
[2024-09-02] MEDS: THORAZINE 25 MG PO ×2 (09:14→20:43)
[2024-09-02] MEDS: ZYLOPRIM 100 MG PO (09:14)
--- NOTE | 2024-09-02 09:32 | PN.CDI ---
CDI
- -
CDI:
Physician Documentation Request
Admit Date: 08/24/24 13:09
Dear Doctor Jasen,
Clinical Indicators:
Patient admitted with acute on chronic LE weakness and edema
Cr/GFR trend:
08/24/24 08/26/24 09/01/24
10:35 06:23 06:19
Creatinine 1.6 H 1.3 1.0
eGFR 47.82 > 60.00 >60.00
Please clarify which of the following accurately represents the patient's renal status on admission:
URVASHI
Rise in creatinine only
Other
Criteria for URVASHI*
1 Increase in serum creatinine by > or = to 0.3 mg/dL (> or = to 26.5 micromol/L) within 48 hours, OR
2 Increase in serum creatinine to > or = to 1.5 times baseline, which is known or presumed to have occurred within 7 days, OR
3 Urine volume < 0.5 nL/kg/hour for six hours
Use of terms such as suspected, likely, concern for, or probable (associated with a specific diagnosis that is being evaluated, monitored, or treated as if it exists) are acceptable and can be coded in the inpatient setting, when documented at the
time of discharge.
Thank you,
Amanda Rosales RN BSN
CDI Specialist
available via tiger text
Please use your independent medical judgment in providing your response.
*Source: Kidney Disease: Improving Global Outcomes (KDIGO) 2012
[2024-09-02 10:01] VITALS: BP 109/69; PULSE 66; O2SAT 95
[2024-09-02 10:04] VITALS: BP 109/69; PULSE 67; O2SAT 95
[2024-09-02 11:00] LABS: Albumin Index 10.9 ratio (0.0-9.0); Albumin, CSF 33 mg/dL (0-35); Albumin, Serum 3030 mg/dL (3500-5200); CSF IgG Synthesis Rate <0.0 mg/d (<=8.0); CSF IgG/Albumin Ratio 0.15 ratio (0.09-0.25); CSF Oligoclonal Bands Negative (Negative); CSF Oligoclonal Bands Number Matching Bands (0-1); IgG 983 mg/dL (768-1632); IgG, CSF 4.8 mg/dL (0.0-6.0)
[2024-09-02] MEDS: KLONOPIN 1 MG PO ×2 (13:47→20:43)
[2024-09-02 15:17] VITALS: BP 126/71
[2024-09-02] MEDS: XARELTO 10 MG PO (17:21)
[2024-09-02] MEDS: KLONOPIN 0.5 MG PO (22:03)
[2024-09-02 23:25] VITALS: BP 133/78
[2024-09-03 06:00] VITALS: BMI 37.0
[2024-09-03 07:14] VITALS: BP 110/57
[2024-09-03] MEDS: SYNTHROID 50 MCG PO (07:31)
[2024-09-03] MEDS: PROTONIX 40 MG PO (08:42)
[2024-09-03] MEDS: LASIX 40 MG PO (08:43)
[2024-09-03] MEDS: PEPCID 20 MG PO ×2 (08:43→20:55)
[2024-09-03] MEDS: RISPERDAL 1.5 MG PO ×2 (08:43→20:55)
[2024-09-03] MEDS: THORAZINE 25 MG PO ×2 (08:44→20:55)
[2024-09-03] MEDS: ZYLOPRIM 100 MG PO (08:44)
[2024-09-03] MEDS: DEPAKOTE (12 HR RELEASE) 1000 MG PO ×2 (08:44→20:55)
--- NOTE | 2024-09-03 10:16 | W.PN.HOSP.TC ---
Today's Communication/Plan
-
Discharge planning in progress
Assessment / Plan
Assessment / Plan
Physical Exam
General: No Apparent Distress, obese, weak/ fatigue
HEENT: Normocephalic and Anicteric
Respiratory: Clear
Cardiac: S1/S2 and Regular Rhythm
GI: Soft, Non Tender, Non Distended and Normal Bowel Sounds
Rectal: No bleeding
Genito-urinary:no hematuria
Musculoskeletal: edema in both lower extremities with redness, no tenderness.
Skin: Other (b/l legs : less edema, discoloration, non tender)
Neuro: Awake and Alert , He followed commands but weakness noted especially bilateral lower extremities.
Psych: Calm
A/P:
Acute on chronic lower extremity weakness:
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
Neurology consulted and also added to differential diagnosis alcohol related versus CIDP--> so far no neurological diagnoses that require specific treatment.
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
LP with mild protein elevation but no evidence of demyelinating disease and no true albumin-cytologic dissociation.
MRI cervical and thoracic with no abnormal cord signal but some multilevel degenerative changes.
PT OT eval
Discussed with neurology on 08/31 and recommended ongoing efforts for rehab and no medications treatment available at the moment
Discussed with over the phone prior
Medically ready for discharge--> correctional counselor/case manager for discharge disposition
Possible bilateral cellulitis:
Status post IV antibiotics and finishing course of oral antibiotic, last day on 08/30
ID consulted initially and they signed off.
Remains afebrile
Right parotid nodule:
Will need further outpatient workup with ultrasound and or other modalities
Chronic lower extremity lymphedema:
On furosemide 40 mg p.o. daily
Elevate lower extremity as much as possible
Ruled out CHF:
Reviewed latest echocardiogram on 08/26 and EF 73% and normal diastolic function.
Hypertension:
On losartan 25 mg p.o. daily as outpatient but currently on hold due to relatively low to normal blood pressures. Can restart upon discharge if indicated.
Factor V deficiency:
Continue Xarelto
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
Continue chlorpromazine, clonazepam, risperidone, and divalproex sodium
Hypothyroidism:
Continue levothyroxine 50 mcg p.o. daily
Gout:
Continue allopurinol 100 mg p.o. daily
DVT prophylaxis:
Xarelto
CODE STATUS:
Full code
Anticipated Discharge: Within 24 hours
Subjective/Interval History
-
Date of Service: September 03, 2024
No new complaints.
Objective Data
-
Vital Signs:
Vital Signs
Temp Pulse Resp BP Pulse Ox
97.9 F 67 17 110/57 94
09/03/24 07:14 09/03/24 07:14 09/03/24 07:14 09/03/24 07:14 09/03/24 07:14
I&O
09/02/24 09/03/24 09/04/24
06:59 06:59 06:59
Intake Total 2340 / 2340 240 / 240
Output Total 980 / 980
Balance 2340 / 2340 -740 / -740
[2024-09-03] MEDS: KLONOPIN 1 MG PO ×2 (13:45→20:55)
[2024-09-03 15:54] VITALS: BP 118/70
--- NOTE | 2024-09-03 16:41 | CM ---
Spoke with Ryann from [facility] who came in to meet with patient. She stated that she can accept patient back after he has been to a SNF. She stated that patient has been to [facility] due to behavioral issues in the past in
the past year, therefore patient may be a 'target'
Placed a call to patient's , Nirali but call went to voicemail. Left a voicemail message and encouraged return call. Placed a call to patient's daughter, Evelyn, who answered and was agreeable to referrals being sent to the following facilities:
[facility], [facility], [facility], and [facility] as they are near [facility].
Plan: Case management will continue to follow and assist with discharge planning. SNF when bed is found and pending county assessment if needed.
[2024-09-03] MEDS: XARELTO 10 MG PO (17:52)
[2024-09-03] MEDS: KLONOPIN 0.5 MG PO (21:58)
[2024-09-03 23:13] VITALS: BP 126/70
[2024-09-04] MEDS: SYNTHROID 50 MCG PO (05:59)
[2024-09-04 06:07] VITALS: BMI 37.1
[2024-09-04 07:00] VITALS: BP 127/72
[2024-09-04 08:33] LABS: Hemoglobin 11.9 g/dL (13.0-18.0); Mean Corp Hgb Conc. 33.1 g/dL (33.0-37.0); Mean Corpuscular Volume 81.8 fL (80.0-94.0); Mean Platelet Volume 8.9 fL (7.4-10.4); Platelet Count 150 10^3/uL (130-400); Red Cell Dist. Width 20.9 % (11.5-14.5); White Blood Cell Count 6.5 10^3/uL (4.8-10.8)
[2024-09-04 09:16] LABS: Blood Urea Nitrogen 24 mg/dl (9-20); Carbon Dioxide 35 mmol/L (22-30); Chloride 93 mmol/L (98-107); Estimated Creatinine Clearance 79 ml/min; Glucose 82 mg/dl (70-99); Potassium 3.9 mmol/L (3.5-5.1); Sodium 135 mmol/L (135-145); eGFR > 60.00
--- NOTE | 2024-09-04 09:40 | W.PN.HOSP.TC ---
Today's Communication/Plan
-
Discharge planning in progress
Assessment / Plan
Assessment / Plan
Physical Exam
General: No Apparent Distress, obese, weak/ fatigue
HEENT: Normocephalic and Anicteric
Respiratory: Clear
Cardiac: S1/S2 and Regular Rhythm
GI: Soft, Non Tender, Non Distended and Normal Bowel Sounds
Rectal: No bleeding
Genito-urinary:no hematuria
Musculoskeletal: edema in both lower extremities with redness, no tenderness.
Skin: Other (b/l legs : less edema, discoloration, non tender)
Neuro: Awake and Alert , He followed commands but weakness noted especially bilateral lower extremities.
Psych: Calm
A/P:
Acute on chronic lower extremity weakness:
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
Neurology consulted and also added to differential diagnosis alcohol related versus CIDP--> so far no neurological diagnoses that require specific treatment.
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
LP with mild protein elevation but no evidence of demyelinating disease and no true albumin-cytologic dissociation.
MRI cervical and thoracic with no abnormal cord signal but some multilevel degenerative changes.
PT OT eval
Discussed with neurology on 08/31 and recommended ongoing efforts for rehab and no medications treatment available at the moment
Discussed with over the phone prior
Medically ready for discharge--> dependency case manager for discharge disposition
Possible bilateral cellulitis:
Status post IV antibiotics and finishing course of oral antibiotic, last day on 08/30
ID consulted initially and they signed off.
Remains afebrile
Right parotid nodule:
Will need further outpatient workup with ultrasound and or other modalities
Chronic lower extremity lymphedema:
On furosemide 40 mg p.o. daily
Elevate lower extremity as much as possible
Ruled out CHF:
Reviewed latest echocardiogram on 08/26 and EF 73% and normal diastolic function.
Hypertension:
On losartan 25 mg p.o. daily as outpatient but currently on hold due to relatively low to normal blood pressures. Can restart upon discharge if indicated.
Factor V deficiency:
Continue Xarelto
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
Continue chlorpromazine, clonazepam, risperidone, and divalproex sodium
Hypothyroidism:
Continue levothyroxine 50 mcg p.o. daily
Gout:
Continue allopurinol 100 mg p.o. daily
DVT prophylaxis:
Xarelto
CODE STATUS:
Full code
Anticipated Discharge: 24 - 48 hours
Subjective/Interval History
-
Date of Service: September 04, 2024
No new complaints. Patient states she is a little bit more mobile. Afebrile
Objective Data
-
Labs:
Laboratory Results
09/04/24
07:30
WBC 6.5
Hgb 11.9 L
Hct 36.0 L
Plt Count 150
Sodium 135
Potassium 3.9
Chloride 93 L
Carbon Dioxide 35 H
BUN 24 H
Creatinine 1.2
Glucose 82
Calcium 9.0
Vital Signs:
Vital Signs
Temp Pulse Resp BP Pulse Ox
97.3 F 59 16 127/72 98
09/04/24 07:00 09/04/24 07:00 09/04/24 07:00 09/04/24 07:00 09/04/24 07:00
I&O
09/03/24 09/04/24 09/05/24
06:59 06:59 06:59
Intake Total 240 / 240 960 / 960
Output Total 980 / 980
Balance -740 / -740 960 / 960
[2024-09-04] MEDS: RISPERDAL 1.5 MG PO ×2 (09:46→20:27)
[2024-09-04] MEDS: ZYLOPRIM 100 MG PO (09:47)
[2024-09-04] MEDS: PROTONIX 40 MG PO (09:47)
[2024-09-04] MEDS: THORAZINE 25 MG PO ×2 (09:47→20:27)
[2024-09-04] MEDS: PEPCID 20 MG PO ×2 (09:47→20:27)
[2024-09-04] MEDS: LASIX 40 MG PO (09:47)
[2024-09-04] MEDS: DEPAKOTE (12 HR RELEASE) 1000 MG PO ×2 (09:48→20:27)
[2024-09-04] MEDS: KLONOPIN 1 MG PO ×2 (13:01→21:11)
[2024-09-04 15:00] VITALS: BP 131/83
[2024-09-04] MEDS: XARELTO 10 MG PO (17:40)
[2024-09-04] MEDS: KLONOPIN 0.5 MG PO (21:41)
[2024-09-04 23:25] VITALS: BP 131/74
[2024-09-05] MEDS: SYNTHROID 50 MCG PO (05:02)
[2024-09-05 06:00] VITALS: BMI 36.7
--- NOTE | 2024-09-05 08:26 | W.PN.HOSP.TC ---
Today's Communication/Plan
-
Continue PT OT. Discharge planning in progress
Assessment / Plan
Assessment / Plan
Physical Exam
General: No Apparent Distress, obese, weak/ fatigue
HEENT: Normocephalic and Anicteric
Respiratory: Clear
Cardiac: S1/S2 and Regular Rhythm
GI: Soft, Non Tender, Non Distended and Normal Bowel Sounds
Rectal: No bleeding
Genito-urinary:no hematuria
Musculoskeletal: edema in both lower extremities with redness, no tenderness.
Skin: Other (b/l legs : less edema, discoloration, non tender)
Neuro: Awake and Alert , He followed commands but weakness noted especially bilateral lower extremities.
Psych: Calm
A/P:
Acute on chronic lower extremity weakness:
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
Neurology consulted and also added to differential diagnosis alcohol related versus CIDP--> so far no neurological diagnoses that require specific treatment.
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
LP with mild protein elevation but no evidence of demyelinating disease and no true albumin-cytologic dissociation.
MRI cervical and thoracic with no abnormal cord signal but some multilevel degenerative changes.
PT OT eval
Discussed with neurology on 08/31 and recommended ongoing efforts for rehab and no medications treatment available at the moment
Discussed with over the phone prior
Medically ready for discharge--> returned case inspector for discharge disposition
Possible bilateral cellulitis:
Status post IV antibiotics and finishing course of oral antibiotic, last day on 08/30
ID consulted initially and they signed off.
Remains afebrile
Right parotid nodule:
Will need further outpatient workup with ultrasound and or other modalities
Chronic lower extremity lymphedema:
On furosemide 40 mg p.o. daily
Elevate lower extremity as much as possible
Ruled out CHF:
Reviewed latest echocardiogram on 08/26 and EF 73% and normal diastolic function.
Hypertension:
On losartan 25 mg p.o. daily as outpatient but currently on hold due to relatively low to normal blood pressures. Can restart upon discharge if indicated.
Factor V deficiency:
Continue Xarelto
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
Continue chlorpromazine, clonazepam, risperidone, and divalproex sodium
Hypothyroidism:
Continue levothyroxine 50 mcg p.o. daily
Gout:
Continue allopurinol 100 mg p.o. daily
DVT prophylaxis:
Xarelto
CODE STATUS:
Full code
Anticipated Discharge: 24 - 48 hours
Subjective/Interval History
-
Date of Service: September 05, 2024
Patient does not voice any new complaints.
Objective Data
-
Vital Signs:
Vital Signs
Temp Pulse Resp BP Pulse Ox
97.9 F 74 20 131/74 94
09/04/24 23:25 09/04/24 23:25 09/04/24 23:25 09/04/24 23:25 09/04/24 23:25
I&O
09/04/24 09/05/24 09/06/24
06:59 06:59 06:59
Intake Total 960 / 960 1680 / 1680
Balance 960 / 960 1680 / 1680
[2024-09-05 09:04] VITALS: BP 107/61
[2024-09-05] MEDS: PEPCID 20 MG PO ×2 (10:27→19:57)
[2024-09-05] MEDS: DEPAKOTE (12 HR RELEASE) 1000 MG PO ×2 (10:29→19:57)
[2024-09-05] MEDS: THORAZINE 25 MG PO ×2 (10:29→19:57)
[2024-09-05] MEDS: LASIX 40 MG PO (10:29)
[2024-09-05] MEDS: PROTONIX 40 MG PO (10:29)
[2024-09-05] MEDS: ZYLOPRIM 100 MG PO (10:30)
[2024-09-05] MEDS: RISPERDAL 1.5 MG PO ×2 (10:30→19:57)
--- NOTE | 2024-09-05 11:05 | VATNOTE ---
Pt with no IV needs at this time, started on 08/24. Upon assessment IV was leaking. Pt states 'well, they're not using it.' Pt not on a engine monitor and discharge planning in progress per MD note. IV discontinued and not restarted. PCN notified.
[2024-09-05] MEDS: KLONOPIN PO (14:30)
[2024-09-05 16:39] VITALS: BP 115/60
[2024-09-05] MEDS: XARELTO 10 MG PO (18:45)
[2024-09-05] MEDS: KLONOPIN 0.5 MG PO (21:33)
[2024-09-05] MEDS: KLONOPIN 1 MG PO (21:33)
[2024-09-05 23:35] VITALS: BP 116/68
[2024-09-06] MEDS: SYNTHROID 50 MCG PO (05:19)
[2024-09-06 06:00] VITALS: BMI 36.4
[2024-09-06 07:44] VITALS: BP 118/68
[2024-09-06] MEDS: DEPAKOTE (12 HR RELEASE) 1000 MG PO ×2 (07:48→21:08)
[2024-09-06] MEDS: PROTONIX 40 MG PO (07:48)
[2024-09-06] MEDS: PEPCID 20 MG PO ×2 (07:49→21:08)
[2024-09-06] MEDS: LASIX 40 MG PO (07:49)
[2024-09-06] MEDS: RISPERDAL 1.5 MG PO ×2 (07:49→21:08)
[2024-09-06] MEDS: ZYLOPRIM 100 MG PO (07:50)
[2024-09-06] MEDS: THORAZINE 25 MG PO ×2 (07:50→21:08)
[2024-09-06] MEDS: KLONOPIN 1 MG PO ×2 (12:25→21:08)
--- NOTE | 2024-09-06 14:12 | W.PN.HOSP.TC ---
Today's Communication/Plan
-
Discharge planning for custodial facility
Assessment / Plan
Assessment / Plan
Acute on chronic lower extremity weakness:
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
Neurology consulted and also added to differential diagnosis alcohol related versus CIDP--> so far no neurological diagnoses that require specific treatment.
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
LP with mild protein elevation but no evidence of demyelinating disease and no true albumin-cytologic dissociation.
MRI cervical and thoracic with no abnormal cord signal but some multilevel degenerative changes.
Dr Aggarwal - Discussed with neurology on 08/31 and recommended ongoing efforts for rehab and no medications treatment available at the moment
Medically ready for discharge--> correctional case records supervisor for discharge disposition
Possible bilateral cellulitis:
Status post IV antibiotics and finishing course of oral antibiotic, last day on 08/30
ID consulted initially and they signed off.
Remains afebrile
Right parotid nodule:
Will need further outpatient workup with ultrasound and or other modalities
Chronic lower extremity lymphedema:
On furosemide 40 mg p.o. daily
Elevate lower extremity as much as possible
Ruled out CHF:
Reviewed latest echocardiogram on 08/26 and EF 73% and normal diastolic function.
Hypertension:
Losartan on hold due to normal pressure.
Factor V deficiency:
Continue Xarelto
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
Continue chlorpromazine, clonazepam, risperidone, and divalproex sodium
Hypothyroidism:
Continue levothyroxine 50 mcg p.o. daily
Gout:
Continue allopurinol 100 mg p.o. daily
DVT prophylaxis:
Xarelto
CODE STATUS:
Full code
Anticipated Discharge: Within 24 hours
Subjective/Interval History
-
Date of Service: September 06, 2024
Resting comfortably in bed
Denies of having any issues
Objective Data
-
Vital Signs:
Vital Signs
Temp Pulse Resp BP Pulse Ox
97.9 F 58 18 118/68 94
09/06/24 07:44 09/06/24 07:44 09/06/24 07:44 09/06/24 07:44 09/06/24 07:44
I&O
09/05/24 09/06/24 09/07/24
06:59 06:59 06:59
Intake Total 1680 / 1680 1440 / 1440
Balance 1680 / 1680 1440 / 1440
Review of Systems
-
Respiratory: Reports No Symptoms
Cardiac: Reports No Symptoms
Abdomen/GI: Reports No Symptoms
Physical Exam
-
General: Obese
HEENT: Negative Oxygen
Respiratory: Clear to Auscultation
Cardiac: Regular Rhythm and S1/S2; Negative Murmur
GI: Soft, Nontender and Nondistended
Musculoskeletal: Edema, Right Lower Extrem and Edema, Left Lower Extrem
Neuro: Awake and Alert
[2024-09-06 15:00] VITALS: BP 113/69
--- NOTE | 2024-09-06 16:15 | CM ---
Per [employer] the following facilities can accept: [facility], [facility], [facility] and [facility]. Spoke with patient's , Nirali who stated that she would be agreeable to [facility]. Spoke with Magi in admissions who stated
that the NPIs to get auth are, [id number] for facility and Dr. Hernandez is [id number].
Will initiate precert through [employer].
Plan: Case management will continue to follow and assist with discharge planning. Hopeful transfer to [facility] at [facility] upon receiving auth.
[2024-09-06] MEDS: XARELTO 10 MG PO (17:02)
[2024-09-06] MEDS: KLONOPIN 0.5 MG PO (22:07)
[2024-09-06 23:06] VITALS: BP 119/68
[2024-09-07] MEDS: SYNTHROID 50 MCG PO (04:35)
[2024-09-07 06:00] VITALS: BMI 36.7
[2024-09-07 07:58] VITALS: BP 114/73
[2024-09-07] MEDS: THORAZINE 25 MG PO ×2 (08:42→21:43)
[2024-09-07] MEDS: LASIX 40 MG PO (08:42)
[2024-09-07] MEDS: ZYLOPRIM 100 MG PO (08:42)
[2024-09-07] MEDS: DEPAKOTE (12 HR RELEASE) 1000 MG PO ×2 (08:42→21:42)
[2024-09-07] MEDS: RISPERDAL 1.5 MG PO ×2 (08:42→21:42)
[2024-09-07] MEDS: PROTONIX 40 MG PO (08:43)
[2024-09-07] MEDS: PEPCID 20 MG PO ×2 (08:43→21:42)
--- NOTE | 2024-09-07 12:56 | W.PN.HOSP.TC ---
Today's Communication/Plan
-
d/c planning for snf rehab
Assessment / Plan
Assessment / Plan
Acute on chronic lower extremity weakness:
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
Neurology consulted and also added to differential diagnosis alcohol related versus CIDP--> so far no neurological diagnoses that require specific treatment.
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
LP with mild protein elevation but no evidence of demyelinating disease and no true albumin-cytologic dissociation.
MRI cervical and thoracic with no abnormal cord signal but some multilevel degenerative changes.
Dr Aggarwal - Discussed with neurology on 08/31 and recommended ongoing efforts for rehab and no medications treatment available at the moment
Medically ready for discharge--> case assembler for discharge disposition
Possible bilateral cellulitis:
Status post IV antibiotics and finishing course of oral antibiotic, last day on 08/30
ID consulted initially and they signed off.
Remains afebrile
Right parotid nodule:
Will need further outpatient workup with ultrasound and or other modalities
Chronic lower extremity lymphedema:
On furosemide 40 mg p.o. daily
Elevate lower extremity as much as possible
Ruled out CHF:
Reviewed latest echocardiogram on 08/26 and EF 73% and normal diastolic function.
Hypertension:
Losartan on hold due to normal pressure.
Factor V deficiency:
Continue Xarelto
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
Continue chlorpromazine, clonazepam, risperidone, and divalproex sodium
Hypothyroidism:
Continue levothyroxine 50 mcg p.o. daily
Gout:
Continue allopurinol 100 mg p.o. daily
DVT prophylaxis: Xarelto
CODE STATUS: Full code
Anticipated Discharge: Today
Subjective/Interval History
-
Date of Service: September 07, 2024
no acute events reported
Objective Data
-
Vital Signs:
Vital Signs
Temp Pulse Resp BP Pulse Ox
98 F 67 16 114/73 95
09/07/24 07:58 09/07/24 07:58 09/07/24 07:58 09/07/24 07:58 09/07/24 07:58
I&O
09/06/24 09/07/24 09/08/24
06:59 06:59 06:59
Intake Total 1440 / 1440 8 / 2268
Balance 1440 / 1440 8 / 2268
Review of Systems
-
Unable to obtain full review of systems at this time due to: Dementia
Physical Exam
-
General: Obese
HEENT: Negative Oxygen
Respiratory: Clear to Auscultation
Cardiac: Regular Rhythm and S1/S2; Negative Murmur
GI: Soft, Nontender and Nondistended
Musculoskeletal: Edema, Right Lower Extrem and Edema, Left Lower Extrem
Neuro: Awake and Alert
[2024-09-07] MEDS: KLONOPIN 1 MG PO ×2 (13:00→22:58)
[2024-09-07 15:24] VITALS: BP 118/70
[2024-09-07] MEDS: XARELTO 10 MG PO (17:24)
--- NOTE | 2024-09-07 17:47 | CM ---
No response has been received as of yet from [employer]. Will f/u with status on auth in am.
Plan: Case management will continue to follow and assist with discharge planning. SNF upon hopeful obtaining of auth.
[2024-09-07] MEDS: KLONOPIN 0.5 MG PO (22:58)
[2024-09-07 23:22] VITALS: BP 140/78
[2024-09-08] MEDS: SYNTHROID 50 MCG PO (05:51)
[2024-09-08 06:39] VITALS: BMI 36.4
[2024-09-08 08:03] VITALS: BP 134/73
[2024-09-08] MEDS: PROTONIX 40 MG PO (08:14)
[2024-09-08] MEDS: RISPERDAL 1.5 MG PO (08:15)
[2024-09-08] MEDS: PEPCID 20 MG PO (08:15)
[2024-09-08] MEDS: DEPAKOTE (12 HR RELEASE) 1000 MG PO (08:16)
[2024-09-08] MEDS: LASIX 40 MG PO (08:16)
[2024-09-08] MEDS: ZYLOPRIM 100 MG PO (08:16)
[2024-09-08] MEDS: THORAZINE 25 MG PO (08:16)
[2024-09-08] MEDS: DRISDOL (VITAMIN D2) 50000 UNITS PO (08:25)
--- NOTE | 2024-09-08 10:55 | CM ---
Addendum entered by MANA Cid 09/08/24 12:41:
Patient's stated that she will update Ryann at [facility].
Addendum entered by MANA Cid 09/08/24 12:07:
Patient's is updated and agreeable to transfer. Reviewed IMM, will put on chart. Attending notified.
Original Note:
Received documentation from Mahesh from [facility] who stated that patient was approved from 09/07/24-09/16/24 sub acute level 1 NRD 09/17 Clinicals should be faxed to, for review. #Auth [id number].
Placed a call to Magi in admissions at [facility] who confirmed that she would be able to accept patient today. # For [phone] and .
Will complete Medical necessity and transfer sheet for transfer.
Will call patient's to update.
Plan: Case management will continue to follow and assist with discharge planning. [facility].
[2024-09-08] MEDS: KLONOPIN 1 MG PO (12:06)
--- NOTE | 2024-09-08 14:15 | W.PN.HOSP.TC ---
Today's Communication/Plan
-
d/c snf rehab
Assessment / Plan
Assessment / Plan
Acute on chronic lower extremity weakness:
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
Neurology consulted and also added to differential diagnosis alcohol related versus CIDP--> so far no neurological diagnoses that require specific treatment.
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
LP with mild protein elevation but no evidence of demyelinating disease and no true albumin-cytologic dissociation.
MRI cervical and thoracic with no abnormal cord signal but some multilevel degenerative changes.
Dr Aggarwal - Discussed with neurology on 08/31 and recommended ongoing efforts for rehab and no medications treatment available at the moment
Medically ready for discharge--> case consultant for discharge disposition
Possible bilateral cellulitis:
Status post IV antibiotics and finishing course of oral antibiotic, last day on 08/30
ID consulted initially and they signed off.
Remains afebrile
Right parotid nodule:
Will need further outpatient workup with ultrasound and or other modalities
Chronic lower extremity lymphedema:
On furosemide 40 mg p.o. daily
Elevate lower extremity as much as possible
Ruled out CHF:
Reviewed latest echocardiogram on 08/26 and EF 73% and normal diastolic function.
Hypertension:
Losartan on hold due to normal pressure.
Factor V deficiency:
Continue Xarelto
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
Continue chlorpromazine, clonazepam, risperidone, and divalproex sodium
Hypothyroidism:
Continue levothyroxine 50 mcg p.o. daily
Gout:
Continue allopurinol 100 mg p.o. daily
DVT prophylaxis: Xarelto
CODE STATUS: Full code
More than 30 minutes spent in discharge including
Final examination of the patient
Summarizing hospital stay
Instructions for continuing care to all relevant caregivers
Preparation of discharge records, prescriptions, and referral forms
Total time spent (in minutes): 39 mins
Anticipated Discharge: Today
Subjective/Interval History
-
Date of Service: September 08, 2024
no new issues overnight
Objective Data
-
Vital Signs:
Vital Signs
Temp Pulse Resp BP Pulse Ox
98 F 57 16 134/73 94
09/08/24 08:03 09/08/24 08:03 09/08/24 08:03 09/08/24 08:03 09/08/24 08:03
I&O
09/07/24 09/08/24 09/09/24
06:59 06:59 06:59
Intake Total 2267
Balance 2267
Review of Systems
-
Respiratory: Reports No Symptoms
Cardiac: Reports No Symptoms
Abdomen/GI: Reports No Symptoms
Physical Exam
-
General: Obese
HEENT: Negative Oxygen
Respiratory: Clear to Auscultation
Cardiac: Regular Rhythm and S1/S2; Negative Murmur
GI: Soft, Nontender and Nondistended
Musculoskeletal: Edema, Right Lower Extrem and Edema, Left Lower Extrem
Neuro: Awake and Alert
[2024-09-08 15:28] VITALS: BP 127/70
--- NOTE | 2024-09-08 16:38 | W.DCSUMMARY ---
Discharge Summary
Discharge Data
Date of Admission: 08/24/24
Date of Discharge: 09/08/24
-
Pending Results: No
Hospital Course
Discharging Physician : Dr Pascual Gentile
Disposition : SNF rehab
Primary care physician : Unknown
Principal Discharge diagnosis :
Acute on chronic bilateral lower extremity weakness
Bilateral cellulitis
Right paratracheal node
Chronic Discharge diagnosis :
Essential hypertension
Morbid obesity
Gout
Anxiety
Hypothyroidism
Frontotemporal dementia
Hospital Course :
Patient is 64-year-old male with mentioned past medical history came to ER with worsening leg swelling and erythema. Patient was diagnosed to having bilateral lower extremity cellulitis. Lower extremity venous Doppler was negative for any clot.
Patient was started on IV antibiotics with which patient improvement in symptoms.
Patient also noted to having significant lower extremity weakness and initially there was concern of Guillain-Espitia� syndrome. Neurology was consulted and patient underwent workup with EMG/LP/MRI of cervical/T-spine and was diagnosed to have
sensorimotor axonal neuropathy. Neurology felt this might be related to alcohol use related versus CIDP although no clear diagnosis made. Neurology recommended rehab placement.
Patient also was noted to incidentally having right parotid nodule, which will need to be evaluated by ENT postdischarge.
Post medical stabilization patient was discharged to SNF rehab.
Important imaging findings :
None
Procedure findings :
None
Discharge Plan
-
Patient Disposition: Detention/SNF
Discharge Diagnosis/Procedures: LE weakness from axonal sensorimotor neuropathy, Cellulitis, Rt Parotid gland nodule
Diet: Low Cholesterol and 2 Gram Sodium
Activity: As tolerated
Driving Restrictions: No driving
Bathing Restrictions: OK to Shower
Activity Restrictions/Additional Instructions:
PLEASE ESTABLISH CARE WITH A FAMILY PHYSICIAN FOR CHRONIC CONDITIONS
PLEASE CALL FOR AN FOLLOW UP WITH ENT DOCTOR FOR EVALUATION OF PAROTID GLAND MASS

Thigh high Sumanth wraps as tolerated; re wrap daily.
Barrier ointment to sohan/coccyx skin twice a day.
Elevate heels off bed with pillows.
Pressure redistributing chair cushion (i.e. Air, gel).
Evaluate for an air mattress.
Follow up at a lymphedema clinic if needed.
Referrals:
Ugo Guerin MD [Active] -
UNKNOWN,NO INTERVIEW [Family Provider] -
Prescriptions:
New
furosemide 40 mg Tablet
40 mg PO DAILY Qty: 30 0RF
clonazepam [Klonopin] 1 mg tablet
See Rx Instructions .ROUTE .COMPLEX Qty: 8 0RF
Rx Instructions:
Take 1 Tablet at 1300 AND
Take 1 and Half tablet at 2100
Continued
acetaminophen 325 mg tablet
650 mg PO QIDPRN PRN (Reason: mild pain/fever)
cyanocobalamin (vitamin B-12) 1,000 mcg Tablet
2,000 mcg PO DAILY
ferrous sulfate 325 mg (65 mg iron) tablet
324 mg PO DAILY
fluticasone propion-salmeterol [Advair Diskus] 250-50 mcg/dose Blister With Device
1 inh INHALATION R BID
allopurinol 100 mg Tablet
100 mg PO DAILY
divalproex 500 mg Tablet,Delayed Release (Dr/Ec)
1,000 mg PO BID
famotidine [Pepcid] 20 mg Tablet
20 mg PO BID
levothyroxine [Synthroid] 50 mcg Tablet
50 mcg PO DAILY
pantoprazole [Protonix] 40 mg Tablet,Delayed Release (Dr/Ec)
40 mg PO DAILY
chlorpromazine 25 mg Tablet
25 mg PO BID
calcium carbonate [Tums] 200 mg calcium (500 mg) Tablet,Chewable
400 mg PO Q4HPRN PRN (Reason: gerd)
triamcinolone acetonide 0.025 % Ointment
1 applic TOPICAL DAILY
hydrocortisone 2.5 % Cream
1 applic TOPICAL TID
ergocalciferol (vitamin D2) 1,250 mcg (50,000 unit) Capsule
1,250 mcg PO WE
albuterol sulfate 90 mcg/actuation Hfa Aerosol Inhaler
2 puff INHALATION R Q6HPRN PRN (Reason: sob)
risperidone [Risperdal] 1 mg Tablet
1.5 mg PO BID
loratadine [Claritin] 10 mg Tablet
10 mg PO DAILY
capsaicin [Arthritis Pain Relief(capsaic)] 0.1 % Cream
1 applic TOPICAL DAILY
Minerin Creme Cream
1 applic TOPICAL HS
Xarelto 10 mg Tablet
10 mg PO QPM
Discontinued
furosemide [Lasix] 40 mg Tablet
40 mg PO BID
clonazepam 0.5 mg Tablet
0.5 mg PO HS
Rx Instructions:
Take 0.5mg tablet w/ 1mg tablet
clonazepam 1 mg Tablet
1 mg PO BID@1300,2100
losartan 25 mg Tablet
25 mg PO DAILY
nicotine 21 mg/24 hr Patch 24 Hour
1 patch TRANSDERMAL DAILY
Discharge Orders:
Discharge Patient (As Directed); Ordered 09/08/24
Ordered By: Pascual Gentile
Discharge Date and Time
Discharge Date/Time: 09/08/24 16:18
Print Language: MALAY
== END 2024-09-08 16:18 | DRG 74 ==
LOC: 3 WEST ACU 13:09
PROVIDERS: Hospitalist; Internal Medicine; Physician Assistant; Radiology Vascular & Interventional Radiology; ADMITTING PHYSICIAN Internal Medicine; ATTENDING PHYSICIAN Hospitalist; CONSULT PHYSICIAN Internal Medicine Infectious Disease; CONSULT PHYSICIAN Psychiatry & Neurology Neurology; EMERGENCY PHYSICIAN Emergency Medicine
PROC: 009U3ZX Drainage of Spinal Canal, Percutaneous Approach, Diagnostic (ICD-10-PCS; 2024-08-30)
PROC: B01B1ZZ Fluoroscopy of Spinal Cord using Low Osmolar Contrast (ICD-10-PCS; 2024-08-30)
DX: G62.1 Alcoholic polyneuropathy (principal); L03.115 Cellulitis of right lower limb; D68.2 Hereditary deficiency of other clotting factors; F02.818 Dementia in other diseases classified elsewhere, unspecified severity, with other behavioral disturbance; F02.83 Dementia in other diseases classified elsewhere, unspecified severity, with mood disturbance; F10.288 Alcohol dependence with other alcohol-induced disorder; N17.9 Acute kidney failure, unspecified; L03.116 Cellulitis of left lower limb; I87.2 Venous insufficiency (chronic) (peripheral); L53.9 Erythematous condition, unspecified; G31.09 Other frontotemporal neurocognitive disorder; E03.9 Hypothyroidism, unspecified; I87.8 Other specified disorders of veins; R26.2 Difficulty in walking, not elsewhere classified; M10.9 Gout, unspecified; D50.9 Iron deficiency anemia, unspecified; E55.9 Vitamin D deficiency, unspecified; E78.00 Pure hypercholesterolemia, unspecified; G47.33 Obstructive sleep apnea (adult) (pediatric); I10 Essential (primary) hypertension; F17.200 Nicotine dependence, unspecified, uncomplicated; K21.9 Gastro-esophageal reflux disease without esophagitis; J45.909 Unspecified asthma, uncomplicated; D37.030 Neoplasm of uncertain behavior of the parotid salivary glands; E53.8 Deficiency of other specified B group vitamins; I89.0 Lymphedema, not elsewhere classified; E66.01 Morbid (severe) obesity due to excess calories; I25.2 Old myocardial infarction; Z68.36 Body mass index [BMI] 36.0-36.9, adult; Z79.01 Long term (current) use of anticoagulants; Z79.890 Hormone replacement therapy; Z85.038 Personal history of other malignant neoplasm of large intestine; Z91.199 Patient's noncompliance with other medical treatment and regimen due to unspecified reason; Z99.3 Dependence on wheelchair; Z75.1 Person awaiting admission to adequate facility elsewhere
CPT/HCPCS: 62328; 71046; 72156; 72157; 80048; 80053; 82040; 82042; 82784; 82945; 83880; 83916; 84155; 84157; 84165; 84443; 85025; 85027; 85610; 85652; 86140; 86803; 87015; 87070; 87205; 87476; 88108; 89051; 93005; 93306; 93970; 95886; 95911; 97110; 97112; 97163; 97166; 97530; 97535; 99285; A9575; Q9950

== ENCOUNTER 2024-10-31 19:31 | Inpatient (IN) | payer OTHER, SELFPAY ==
[2024-10-31] VITALS (20 sets, daily range): BP systolic 91–119; BP diastolic 59–98; BMI 40.5; BMI 39.5
[2024-10-31 14:09] LABS: % Basophils 0.2 % (0-2); % Eosinophils 0.2 % (0-6); % Immature Granulocytes 0.7 % (0-0.5); % Lymphocytes 5.3 % (20.5-51.1); % Monocytes 10.2 % (1.7-9.3); % Neutrophils 83.4 % (42.2-75.2); Absolute Immature Granulocytes 0.1 10^3/uL (0-0.05); Absolute Lymphocytes 0.7 10^3/uL (1.2-3.4); Absolute Monocytes 1.3 10^3/uL (0.1-0.6); Absolute Neutrophils 10.3 10^3/uL (1.4-6.5); Hematocrit 40.3 % (39.0-52.0); Hemoglobin 13.7 g/dL (13.0-18.0); Mean Corpuscular Hgb 29.5 pg (27.0-31.0); Mean Corpuscular Volume 86.9 fL (80.0-94.0); Nucleated Red Blood Cells % 0 % (-); Red Blood Cell Count 4.64 10^6/uL (4.70-6.10); Red Cell Dist. Width 17.3 % (11.5-14.5); White Blood Cell Count 12.4 10^3/uL (4.8-10.8)
[2024-10-31 14:17] LABS: Blood Urea Nitrogen 19 mg/dl (9-20); Carbon Dioxide 23 mmol/L (22-30); Chloride 97 mmol/L (98-107); Estimated Creatinine Clearance 100 ml/min; Glucose 160 mg/dl (70-99); Sodium 133 mmol/L (135-145); eGFR > 60.00
[2024-10-31 14:32] LABS: Mean Platelet Volume 9.7 fL (7.4-10.4); Platelet Count 113 10^3/uL (130-400)
[2024-10-31 14:33] LABS: Band Neutrophils 11 % (0-3); Eosinophils 3 % (0-6); Lymphocytes 3 % (20-51); Monocytes 5 % (2-9); Normal RBC Morphology No; Platelets Checked Yes; Segmented Neutrophils 78 % (42-75)
[2024-10-31 14:34] LABS: Anisocytosis 1+; Hypochromasia 1+; Polychromasia 1+; Stomatocytes 1+; Target Cells FEW; Total Cells Counted 100
--- NOTE | 2024-10-31 14:52 | ED.GENMED ---
History of Present Illness
General
Chief Complaint: Change in Mental Status
Source: patient, records and snf
Exam Limitations: altered mental status
Time Seen by Provider: 10/31/24 13:48
History of Present Illness
History of Present Illness:
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
[facility] for evaluation of generalized weakness, altered mental status, cough. Facility reports that over the past several weeks, the patient has been walking with the use of his walker and eating well and without assistance.
Today, facility noted that the patient had increasing tremors, could not feed himself, and had difficulty standing or walking alone. They report that he was also slow to respond and when they checked his vital signs he was hypotensive to 88/68 and
tachycardic with heart rate in the 130s. They report the patient completed a course of oral antibiotics last week for a cough. They report that the cough seems to have improved. Patient states that he did does still have his cough. Patient
denies nasal congestion, rhinorrhea, throat pain, chest pain, shortness of breath, abdominal pain, nausea, vomiting, change in his bowel habits. Patient is wearing compression stockings, he denies any open wounds or lesions.
I was able to speak with the nurse at the patient's nursing facility. She reports that over the past few weeks the patient has been doing quite well there. She reports the patient has been ambulating with the assistance of his walker with a steady
gait. She reports the patient has been eating well and that the patient's mental capacity has been improving. However today they noted increased tremors. The patient was having difficulty standing and walking alone. The patient was also having
difficulty feeding himself. They also noted the patient was slow to respond. When they checked the patient's vital signs, they checked the blood pressure and it was 88/68 and the patient was tachycardic to the 130s. Therefore they decided to send
the patient to the emergency department for further evaluation. They report the patient did have a cough last week which was treated with a course of antibiotics.
Past History
Past History
ED Past Medical History: Asthma, Cancer (Colon cancer), CHF, GERD, HTN, Hypercholesterolemia, [place], Psychiatric (Bipolar affective disorder), Other (Factor V Leiden, Frontotemporal dementia, chronic venous insufficiency with stasis edema, gout, morbid
obesity), Other (Vitamin B12 deficiency, vitamin D deficiency, chronic venous stasis, iron deficiency anemia, obstructive sleep apnea with noncompliance) and Other (Pulmonary saddle embolism with cor pulmonale)
ED Past Surgical History: None and Bowel resection (2019)
Social History
Tobacco: Smoker
Alcohol: Chronic alcoholic
Drug: None
Personal:
Living: assisted living
Employment: Retired
Family History
Family History: Other (Reviewed and noncontributory)
Review of Systems
Review of Systems
Allergies reviewed?: Yes
All Other Systems: ROS reviewed and negative except as documented in HPI and ROS
Constitutional: Reports no symptoms
EENT: Reports no symptoms
Respiratory: Reports cough; Denies trouble breathing
Cardiac: Reports no symptoms; Denies chest pain
ABD/GI: Reports no symptoms; Denies abdominal pain
: Reports no symptoms
Musculoskeletal: Reports no symptoms
Skin: Reports no symptoms; Denies rash
Neurological: Reports weakness
Endocrine: Reports no symptoms
Hematologic/Lymphatic: Reports no symptoms
Psychiatric: Reports no symptoms
Phy Exam
General Physical Exam
General Presentation: well appearing and no apparent distress
General Skin: warm and dry
General Habitus: normal
General Mental: alert
General Hydration: appears well hydrated
ENT Exam
ENT Exam: EOMI, pharynx normal, neck supple and normocephalic
Eye Exam
Eye Exam: PERRL, EOMI, cornea clear and conjunctiva normal
Cardiovascular Exam
Cardiovascular Exam: regular rate/rhythm, no murmur, normal peripheral pulses and other (mild bilateral lower extremity edema, pt does have compression stockings on, no skin changes)
Pulmonary Exam
Pulmonary Exam: lungs clear, no respiratory distress, no rales, no crackles, no rhonchi, no stridor and no wheezing
Gastrointestinal Exam
Gastrointestinal Exam: normal bowel sounds, non tender, soft, no organomegaly, no pulsatile mass and distended
Neurological Exam
Neurological Exam: alert, no motor deficits, speech normal and other (oriented to place, knows month is October but believes year is 2022, oriented to self)
Musculoskeletal Exam
Musculoskeletal Exam: full ROM and no edema
Skin Exam
Skin Exam: normal color, warm/dry, no rash and no petechia
Psychiatric Exam
Psychiatric Exam: normal mood/affect
Course
Orders/Labs/Results
Orders:
Orders
10/31/24 13:35
Electrocardiogram (*1) Urgent
Reason for Study: Tachycardia
EKG- Treatment ONCE
10/31/24 13:48
Basic Metabolic Panel Urgent
Complete Blood Count/With Diff Urgent
Manual Differential Urgent
10/31/24 14:17
CR Chest Portable - 1 View Urgent
Comment:
Reason For Exam: cough, altered mental status
Reason Study Needs to be Portable: Unable to Transport
10/31/24 14:35
COVID-19 Antigen Urgent
Source: Nasal Swab
Influenza A+B Rapid Molecular Urgent
[place] Source: Nasal Swab
Specimen Description:
10/31/24 14:43
Clonazepam [Klonopin] 1 mg PO NOW STA
10/31/24 15:08
Lactic Acid Urgent
Urinalysis Reflex To Culture Urgent
Date Specimen was Collected: 10/31/24
Time Specimen was Collected: 14:46
10/31/24 15:37
CT Abd/pelvis W Iv Cont Urgent
Comment:
Reason For Exam: altered mental status, fever
10/31/24 15:40
Acetaminophen [Tylenol] 1,000 mg PO NOW STA
10/31/24 17:40
Piperacillin/Tazo 3.375 Gram [Zosyn] 3.375 gram in 50 ml IV NOW
10/31/24 18:27
Blood Culture Q30M
[place] Source: Blood/Venous
Specimen Description:
Blood Culture Q30M
[place] Source: Blood/Venous
Specimen Description:
10/31/24 18:43
Add On- LAB Urgent
Tests Added?: LFTs, Lipase
10/31/24 18:56
Vancomycin [Vancocin] 1,500 mg 0.9% Sodium Chloride 500 ml [Nss] 500 ml IV NOW
Abnormal Lab Results
10/31/24 10/31/24
13:48 15:08
WBC 12.4 H 10^3/uL
(4.8-10.8)
RBC 4.64 L 10^6/uL
(4.70-6.10)
RDW 17.3 H %
(11.5-14.5)
Plt Count 113 L 10^3/uL
(130-400)
Abs Immat Gran (auto) 0.1 H 10^3/uL
(0-0.05)
Absolute Neuts (auto) 10.3 H 10^3/uL
(1.4-6.5)
Absolute Lymphs (auto) 0.7 L 10^3/uL
(1.2-3.4)
Absolute Monos (auto) 1.3 H 10^3/uL
(0.1-0.6)
Immature Gran % 0.7 H %
(0-0.5)
Neutrophils % 83.4 H %
(42.2-75.2)
Lymphocytes % 5.3 L %
(20.5-51.1)
Monocytes % 10.2 H %
(1.7-9.3)
Abs Neuts (Manual) 11.0 H 10^3/uL
(1.4-6.5)
Segmented Neutrophils 78 H %
(42-75)
Band Neutrophils 11 H %
(0-3)
Lymphocytes (Manual) 3 L %
(20-51)
Sodium 133 L mmol/L
(135-145)
Chloride 97 L mmol/L
(98-107)
Glucose 160 H mg/dl
(70-99)
Lactic Acid 2.7 H mmol/L
(0.7-2.0)
10/31/24 13:48
10/31/24 13:48
Vital Signs
Initial and Last Documented VS:
Initial Vital Signs
Temp Pulse Resp BP Pulse Ox
98.5 F 118 20 111/79 94
10/31/24 13:37 10/31/24 13:37 10/31/24 13:37 10/31/24 13:37 10/31/24 13:37
Last Documented Vital Signs
Temp Pulse Resp BP Pulse Ox
100.8 F H 93 14 106/73 94
10/31/24 15:09 10/31/24 17:15 10/31/24 17:15 10/31/24 17:00 10/31/24 17:15
*Critical Care Note
Total Time (30-74mins, 75-104mins- exclusive of procedures): Not Applicable
Update Note
Update Note:
Patient is a 64-year-old male with past medical history as noted currently residing at a nursing facility who presents to the emergency department via EMS for evaluation of altered mental status. Facility reports the patient has had increasing
tremors, difficulty standing and walking alone and feeding himself which is not his usual. They also report the patient has been slow to respond. They noted that the patient was hypotensive and tachycardic at their facility as well. They report
the patient did have a cough last week which was treated with a course of oral antibiotics. On arrival, patient's vital signs are stable, he was afebrile orally but found to be febrile to 100.8 �F rectally. On exam, patient is in no acute
distress. Labs were notable for a leukocytosis to 12.4 with a left shift as well as a bandemia, lactic acid is elevated at 2.7, urinalysis via straight cath demonstrates no evidence of infection. Chest x-ray is concerning for a possible infiltrate
in the right middle lobe however final report is no acute disease process. CT of the abdomen and pelvis was performed given the patient's mild abdominal distention, fever. This demonstrates no acute abnormalities to account for the patient's
symptoms today. Case was discussed with the ED attending. At this time, suspect the patient could have a viral infection. Will obtain blood cultures and give a dose of broad-spectrum antibiotics. Patient will be admitted to the hospital for
further workup of her his fever of unknown origin.
ED Attending Note
-
Portions of this chart may have been created with voice recognition software.� Occasional wrong word or��sound alike� substitutions may have occurred due to the inherent limitations of voice recognition software.
Discharge Plan
Departure
Patient Disposition: Admit
Date of Disposition: 10/31/24
Time of Disposition: 18:09
Presentation/result/management discussed w/ accepting MD/DO: Hospitalist
Patient with high blood pressure during this ER visit?: No
Condition: Good
Covid-19: Negative COVID-19
Discharge Problem:
Fever of unknown origin, Leukocytosis, Bandemia, Altered mental status
Prescriptions:
No Action
cyanocobalamin (vitamin B-12) 1,000 mcg Tablet
2,000 mcg PO DAILY
ferrous sulfate 325 mg (65 mg iron) tablet
324 mg PO DAILY
fluticasone propion-salmeterol [Advair Diskus] 250-50 mcg/dose Blister With Device
1 inh INHALATION R BID
allopurinol 100 mg Tablet
100 mg PO DAILY
divalproex 500 mg Tablet,Delayed Release (Dr/Ec)
1,000 mg PO BID
famotidine [Pepcid] 20 mg Tablet
20 mg PO BID
levothyroxine [Synthroid] 50 mcg Tablet
50 mcg PO DAILY
pantoprazole [Protonix] 40 mg Tablet,Delayed Release (Dr/Ec)
40 mg PO DAILY
chlorpromazine 25 mg Tablet
25 mg PO BID
calcium carbonate [Tums] 200 mg calcium (500 mg) Tablet,Chewable
400 mg PO Q6HPRN PRN (Reason: gerd)
triamcinolone acetonide 0.025 % Ointment
1 applic TOPICAL DAILY
ergocalciferol (vitamin D2) 1,250 mcg (50,000 unit) Capsule
1,250 mcg PO WE
albuterol sulfate 90 mcg/actuation Hfa Aerosol Inhaler
2 puff INHALATION R Q6HPRN PRN (Reason: sob)
risperidone [Risperdal] 1 mg Tablet
1.5 mg PO BID
loratadine [Claritin] 10 mg Tablet
10 mg PO DAILY
capsaicin [Arthritis Pain Relief(capsaic)] 0.1 % Cream
1 applic TOPICAL DAILY
Minerin Creme Cream
1 applic TOPICAL HS
Xarelto 10 mg Tablet
10 mg PO QPM
furosemide 40 mg Tablet
40 mg PO DAILY Qty: 30 0RF
acetaminophen [Tylenol Extra Strength] 500 mg Tablet
500 mg PO BID
diclofenac sodium [Voltaren] 1 % Gel
0 g TOPICAL BID
clonazepam [Klonopin] 1 mg tablet
1.5 mg PO HS
Rx Instructions:
Take 1 Tablet at 1300 AND
Take 1 and Half tablet at 2100
Referrals:
UNKNOWN - PT NOT,INTERVIEWE [Family Provider] -
Interventions
Interventions:
*Risk Screen - Suicide Last Done: 10/31/24 13:37
*General Assessment Last Done: 10/31/24 13:37
*Neglect/Abuse Screening Last Done: 10/31/24 13:37
*ED COVID-19 Vaccine History Last Done: 10/31/24 13:43
ED- Pulmonary Assessment Last Done: 10/31/24 13:45
ED- Neurological Assessment Last Done: 10/31/24 13:44
ED- Cardiac Assessment Last Done: 10/31/24 13:44
ED Swallowing Screen Last Done: 10/31/24 14:00
Discharge Date and Time
Print Language: FAROESE
[2024-10-31 15:00] LABS: COVID-19 Antigen Negative (Negative)
[2024-10-31] MEDS: KLONOPIN 1 MG PO (15:12)
[2024-10-31 15:19] LABS: Urine Albumin Negative (Neg - Trace); Urine Bilirubin Negative (Negative); Urine Character Clear (Clear); Urine Color Yellow; Urine Glucose Negative (Negative); Urine Ketone Negative (Negative); Urine Leukocyte Negative (Negative); Urine Nitrite Negative (Negative); Urine Occult Blood Negative (Negative); Urine Specific Gravity 1.015 (<1.030); Urine Urobilinogen Negative (Neg - 1+)
[2024-10-31 15:26] LABS: Lactic Acid 2.7 mmol/L (0.7-2.0)
[2024-10-31] MEDS: TYLENOL 1000 MG PO (17:27)
[2024-10-31] MEDS: ZOSYN 50 IV ×2 (18:26→23:08)
--- NOTE | 2024-10-31 18:34 | HPS.HSE ---
Family Physician
-
Family Physician: INTERVIEWE UNKNOWN - PT NOT
Chief Complaint
-
generalized weakness
History of Present Illness
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
evaluation of increased generalized weakness and cough. Patient resides at [facility]. Facility reports that patient finished oral antibiotics last week for cough. He normally walks with walker and is able to feed himself. Today
staff reports that patient was unable to feed himself today, had difficulty standing and was unable to walk alone. VS were 88/68 and tachy to 130s, so staff sent patient for evaluation. Staff did report that cough improved following antibiotics.
Patient reports that he feels he still maintains cough despite oral antibiotics. He denies any fever, chills, shortness of breath, nausea, vomiting, constipation or diarrhea.
Medical History
Past Medical History
Past Medical History: Reports Other
Additional Past Medical History:
frontotemporal dementia
HX behavioral dysfunction
essential hypertension
hypothyroidism
gout
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
Past Surgical History: Reports None
Social History
Unable to obtain full social history at this time due to: Dementia
Tobacco: Former Smoker
Alcohol: Occasional
Drug: None
Personal:
Living: Assisted Living ([facility] )
Family History
Family History: Not pertinent
Allergies / Home Medications
Allergies reflects when Allergies were last updated in [employer].
Home Medications with original date entered in [employer]
Allergy/Medication List:
Allergies
Allergy/AdvReac Type Severity Reaction Status Date / Time
No Known Allergies Allergy Verified 08/24/24 10:41
Home Medications
cyanocobalamin (vitamin B-12) 1,000 mcg tablet 2,000 mcg PO DAILY Supplement 05/26/24
ferrous sulfate 325 mg (65 mg iron) tablet 324 mg PO DAILY Supplement 05/26/24
albuterol sulfate 90 mcg/actuation aerosol inhaler 2 puff inhalation R Q6HPRN PRN sob 08/24/24
allopurinol 100 mg tablet 100 mg PO DAILY Gout 08/24/24
calcium carbonate (Tums) 400 mg PO Q6HPRN PRN gerd 08/24/24
capsaicin 0.1 % topical cream (Arthritis Pain Relief (capsaicin)) 1 applic topical DAILY 4 gram b/l knee 08/24/24
chlorpromazine 25 mg tablet 25 mg PO BID Gastrointestinal Issue 08/24/24
divalproex 500 mg tablet,delayed release 1,000 mg PO BID Neurological Condition 08/24/24
ergocalciferol (vitamin D2) 1,250 mcg (50,000 unit) capsule 1,250 mcg PO WE Supplement 08/24/24
famotidine 20 mg tablet (Pepcid) 20 mg PO BID Gastrointestinal Issue 08/24/24
fluticasone 250 mcg-salmeterol 50 mcg/dose blistr powdr for inhalation (Advair Diskus) 1 inh inhalation R BID Lung/Breathing Issues 08/24/24
lanolin alcohols-mineral oil-w.petrolatum-ceresin topical cream (Minerin Creme topical) 1 applic topical HS b/l lower estremites 08/24/24
levothyroxine 50 mcg tablet (Synthroid) 50 mcg PO DAILY Thyroid 08/24/24
loratadine 10 mg tablet (Claritin) 10 mg PO DAILY Allergies 08/24/24
pantoprazole 40 mg tablet,delayed release (Protonix) 40 mg PO DAILY Gastrointestinal Issue 08/24/24
risperidone 1 mg tablet (Risperdal) 1.5 mg PO BID Mental Health 08/24/24
rivaroxaban 10 mg tablet (Xarelto) 10 mg PO QPM Blood Clot Prevention/Tx 08/24/24
triamcinolone acetonide 0.025 % topical ointment 1 applic topical DAILY lower legs and ankles 08/24/24
furosemide 40 mg tablet 40 mg PO DAILY #30 tabs 09/08/24
acetaminophen 500 mg tablet (Tylenol Extra Strength) 500 mg PO BID 10/31/24
clonazepam 1 mg tablet (Klonopin) 1.5 mg PO HS 10/31/24
diclofenac sodium 1 % topical gel 0 g topical BID shoulders 10/31/24
Review of Systems
-
History Source: Patient and Care Home
Constitutional: Reports Fatigue
EENT: Reports No Symptoms
Respiratory: Reports No Symptoms
Cardiac: Reports No Symptoms
Abdomen/GI: Reports No Symptoms
: Reports No Symptoms
Musculoskeletal: Reports No Symptoms
Skin: Reports No Symptoms
Neurological: Reports No Symptoms
Endocrine: Reports No Symptoms
Hematologic/Lymphatic: Reports No Symptoms
Psych: Reports No Symptoms
Physical Exam
Vital Signs
Vital Signs
Temp Pulse Resp BP Pulse Ox
100.8 F H 93 14 106/73 94
10/31/24 15:09 10/31/24 17:15 10/31/24 17:15 10/31/24 17:00 10/31/24 17:15
Physical Exam
General: Well Developed, Well Nourished, No Apparent Distress, Comfortable and Conversant
HEENT: NormoCephalic, Moist mucous membranes, Atraumatic, [place] Conjunctivae, Nose Appears Normal and Ears Appear Normal
Respiratory: Clear, Non Labored Respirations and Decreased Breath Sounds
Cardiac: S1/S2 and Regular Rhythm; No Murmur, Rub or Gallop
Breast: Deferred by me
GI: Soft, Non Tender and Normal Bowel Sounds; No Organomegaly
Rectal: Deferred by Provider
Genito-urinary: Deferred by me
Musculoskeletal: No Clubbing, No Cyanosis and No Edema
Skin: No Rash
Neuro: Awake, Alert and Nonfocal/grossly intact
Psych: Intact Judgment/Insight
Laboratory Results
-
10/31/24 13:48
10/31/24 13:48
Laboratory Results
Lactic Acid 2.7 mmol/L (0.7-2.0) H 10/31/24 15:08
Total Bilirubin Cancelled 10/31/24 13:48
AST Cancelled 10/31/24 13:48
ALT Cancelled 10/31/24 13:48
Alkaline Phosphatase Cancelled 10/31/24 13:48
Data Reviewed
-
Diagnostic Radiology: Report Reviewed by me (CXR: Extremely low lung volumes with crowding of central/vascular markings.)
CT Scan: Report Reviewed by me (Abd/Pel: Limited study without oral contrast and with prominent beam hardening artifact from the patient's bilateral upper extremities. Small fat only containing umbilical and immediately adjacent left paramedian
anterior abdominal wall hernias with some accompanying minimal stranding. Markedly li)
Medical Tests (Nuc Med, Echo, EKG etc): Report Reviewed by me (EKG: SINUS TACHYCARDIA CANNOT RULE OUT INFERIOR INFARCT , AGE UNDETERMINED T WAVE ABNORMALITY, CONSIDER ANTEROLATERAL ISCHEMIA ABNORMAL ECG)
Lab Data: Labs Reviewed by me (WBC 12.4, Nazanin 83.4, lactic acid 2.7, )
Impression/Plan
-
IMPRESSION/PLAN:
#sepsis with unknown etiology
WBC 12.4, Nazanin 83.4, lactic acid 2.7
CXR: Extremely low lung volumes with crowding of central/vascular markings.
Abd/Pelvis CT: Limited study without oral contrast and with prominent beam hardening artifact from the patient's bilateral upper extremities.
Small fat only containing umbilical and immediately adjacent left paramedian anterior abdominal wall hernias with some accompanying minimal stranding.
Markedly limited evaluation of intestinal tract without oral contrast, without intestinal obstruction or free air.
Unremarkable appendix.
Incompletely distended urinary bladder likely accounting for relative diffuse wall thickening. Other etiology such as cystitis cannot be excluded.
Moderate size hiatal hernia.
EKG: SINUS TACHYCARDIA
CANNOT RULE OUT INFERIOR INFARCT , AGE UNDETERMINED
T WAVE ABNORMALITY, CONSIDER ANTEROLATERAL ISCHEMIA
ABNORMAL ECG
- Admit to med/surg
- continue IV zosyn for 24 hours
- blood cx pending
- consult ID
#frontotemporal dementia
- continue divalproex
#HX behavioral dysfunction
- continue clonazepam and risperidone
#hypothyroidism
- continue levothyroxine
#gout
- continue allopurinol
#GERD
- continue calcium carbonate, famotidine and pantoprazole
#factor V deficiency
- continue Xarelto
#chronic b/l LE edema
- continue furosemide
#essential hypertension
Code status: full code
DVT prophylaxis: Xarelto
--- NOTE | 2024-10-31 19:02 | W.PN.UPDATE ---
Update Note
Progress Note Update
Patient seen in conjunction with IAM. I agree with the findings on history and physical. I concur with the assessment and plan unless stated otherwise.
Briefly, this is a 64-year-old with past medical history significant for frontotemporal dementia, history of alcohol dependence in the past, factor V fall deficiency, hypothyroid, morbid obesity, hypertension, anxiety, recently admitted to the
hospital for bilateral cellulitis complicating is chronic bilateral lower extremity lymphedema and had a ambulatory difficulties with bilateral lower extremity weakness at that time. He had extensive neurological evaluation with LP MRI EMG which
was inconclusive with possibility of axonal neuropathy versus CIDP and transferred to rehab. Over the last 1 week at rehab patient was noted to have a cough and completed antibiotics last week. He was transferred to the hospital today for acute
changes in mental status, fever and hypotension to a systolic blood pressure of 80 at the nursing facility. Notes indicate that patient was having difficulty moving his legs and ambulating, he was having difficulty eating and looked unwell. There
was no history of shortness of breath, cough, nausea vomiting or diarrhea. No history of any falls. Patient himself was unable to provide much history. Despite his dementia he was alert and oriented to person and place. He reports that he walks
with a walker. He however does not know why he was transferred to the hospital. He denies having any headache. He denies any sore throat. He denies any nasal congestion. He denies any postnasal drip. Patient denies any abdominal pain. He
denies dysuria. He denies any joint swelling or tenderness. He does report bilateral shoulder discomfort and weakness.
In the emergency department he had a rectal temp of 100.8, he was satting 94% on room air, blood pressure was 106/78 with a pulse of 93. Labs notable for a white count of 2012.4, he had 11% bands, hemoglobin and platelets were normal. He had a
sodium of 133 electrolytes with a BUN and creatinine were otherwise unremarkable. Lactic acid was elevated at 2.7. His UA was completely negative. COVID and flu test were negative. Chest x-ray shows low lung volumes but otherwise unremarkable.
CT of the abdomen pelvis was compromised by streaking artifacts but showed no acute intra-abdominal process.
Assessment and plan
64 y.o with h/o FTD, hypothyroid, etoh abuse, Factor V L on Xarelto, chronic lymphedema, morbid obesity gout, htn here with fever of uknown source and weakness. Symptoms appeared acutely so likely viral but etiology remains unchanged. Neurological
exam is intact for me except bilateral weakness in upper and lower extremities. No neck stiffness, headache or pain. Does not appear encephalopathic. No cellulitis, ulcers or gangrene on exam. No joint swelling, redness or tenderness.
Fever of uknown source with bands and lactic acid
- admit to med/surg
- blood and urine cultures sent
- viral panel negative,
- CT a/p neg, xray neg
- check procal, ESR/CRP, periph smear
- check mrsa
- no no gi luminal symptoms to suggest CDiff given recent abx, unlikely tick borne given rehab status
- continue Vanc/Zosyn for now, if procal neg, will d/c vanc
- continue zosyn till blood cultures negative x 48 hours
- ID consult in am if no obvious ource and remains febrile.
AMS - Mostly weakness. No definite encephalopathy but can rule out TME
- infectious w/u and empiric tx as above
- check ammonia and depakote levels.
Dementia with behavioral changes
- continue his depakote and risperdal
Continue his lasix, ppi and synthroid per home regimen
On Xarelto 10 for Fact V def, continue
Code status - Full code
[2024-10-31] MEDS: VANCOCIN 530 MG IV (19:06)
[2024-10-31 19:50] LABS: Ammonia < 9 umol/L (9-30); Lactic Acid 2.1 mmol/L (0.7-2.0)
[2024-10-31 19:55] LABS: Depakane 78.5 ug/ml (50.0-120.0)
[2024-10-31] MEDS: NSS 1000 IV (20:00)
[2024-10-31 20:05] LABS: Procalcitonin 0.24 ng/ml (0.0-0.25)
[2024-10-31] MEDS: ADVAIR HFA 115/21 MCG INHALER 2 PUFF INH (22:11)
[2024-10-31] MEDS: THORAZINE 25 MG PO (22:49)
[2024-10-31] MEDS: PEPCID 20 MG PO (22:50)
[2024-10-31] MEDS: KLONOPIN 1.5 MG PO (22:50)
[2024-10-31] MEDS: RISPERDAL 1.5 MG PO (22:53)
[2024-10-31] MEDS: DEPAKOTE (12 HR RELEASE) 1000 MG PO (22:54)
[2024-10-31] MEDS: DICLOFENAC 1% TOPICAL GEL 100 GRAM TOPICAL (22:55)
[2024-11-01] VITALS (25 sets, daily range): BP systolic 97–145; BP diastolic 53–91; BMI 39.4
[2024-11-01 02:11] LABS: Lactic Acid 1.6 mmol/L (0.7-2.0)
[2024-11-01] MEDS: NSS 1000 IV (02:55)
[2024-11-01 03:22] LABS: B.E. 7.2 mmol/L; O2 Saturation % 96.2 % (94-98); PCO2 45 mmHg (35-48); PO2 75 mmHg (83-108); pH 7.46 (7.35-7.45)
--- NOTE | 2024-11-01 03:45 | W.PN.UPDATE ---
Addendum entered and electronically signed by IAM aBzan 11/01/24 04:56:
Saw patient post transfer to room 3363 and he awakens easily, turned to me and states 'I thought i was going to be able to sleep' Explained yes he could and I left the room. Will hold off on neurology evaluation for now and allow day team to
reassess its need but he appears to be at his prior status.
Original Note:
Update Note
Progress Note Update
Nursing notes patient is obtunded when compared to previous interactions since admission today. PMH includes fronto-temporal dementia with behavior disturbance so has taken his usual doses of thorazine, risperdal, klonopin and divalproex tonight
with an extra klonopin dose in ED upon arrival. NS IV bolus of 1 liter, ABG (CO2 45) afebrile, hypotensive in 90s systolic (baseline 120-130s previous admissions) Takes Xarelto so CT head ordered (no acute changes found). Does have hx of [place] so will consult neurology in am. Low dose levophed for bp support (lactic acid <2 and procal unremarkable) Transferred to IMU. Reviewed plan with Ivette.
--- NOTE | 2024-11-01 04:20 | PTCARENOTE ---
Patient obtunded, minimally responsive to stimuli after receiving scheduled HS meds. BP 97/53, HR 70, 14 RR, 97.0 rectal temp, oxygen 94% on RA. Pupils equal and reactive. 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 Pt
slightly more responsive after ABGs obtained by respiratory, able to mumble name and birthday. Orders to transfer pt to IMU. Report called to IMU RN and patient transferred to [facility] with all belongings.
--- NOTE | 2024-11-01 04:35 | PTCARENOTE ---
received pt from , assessment completed. patient lethargic but able to state name, , and where he was. patient currently receiving 1ltr bolus of nss at this time. no c/o pain or discomfort, lungs sounds diminished throughout, poor
inspiratory effort.
patient states he walks with walker at halfway, however he is unable to move his legs around in bed or lift them r/t increased weakness.
bladder scanned patient for 300ml, patient states he is incontinent of urine but does know when he has to have bowel movement. condom cath placed without issue. patient currently sleeping and will wait for am labs to result.
VS stable, afebrile, normotensive and o2 97% on RA.
[2024-11-01] MEDS: SYNTHROID 50 MCG PO (05:43)
[2024-11-01] MEDS: ZOSYN 50 IV ×3 (05:44→18:42)
[2024-11-01 05:57] LABS: ALT (SGPT) 11 U/L (0-50); AST (SGOT) 15 U/L (17-59); Albumin 3.3 g/dl (3.5-5.0); Alkaline Phosphatase 53 U/L (38-126); Blood Urea Nitrogen 18 mg/dl (9-20); Calcium 8.9 mg/dl (8.4-10.2); Carbon Dioxide 30 mmol/L (22-30); Chloride 98 mmol/L (98-107); Estimated Creatinine Clearance 99 ml/min; Glucose 84 mg/dl (70-99); Potassium 3.8 mmol/L (3.5-5.1); Sodium 136 mmol/L (135-145); Total Protein 5.9 g/dl (6.3-8.2); eGFR > 60.00
[2024-11-01 06:03] LABS: Hematocrit 34.1 % (39.0-52.0); Hemoglobin 11.7 g/dL (13.0-18.0); Mean Corp Hgb Conc. 34.3 g/dL (33.0-37.0); Mean Corpuscular Hgb 30.5 pg (27.0-31.0); Mean Platelet Volume 9.9 fL (7.4-10.4); Platelet Count 102 10^3/uL (130-400); Red Blood Cell Count 3.83 10^6/uL (4.70-6.10); Red Cell Dist. Width 17.1 % (11.5-14.5); White Blood Cell Count 9.6 10^3/uL (4.8-10.8)
--- NOTE | 2024-11-01 06:15 | PTCARENOTE ---
patient sleeping comfortably, drops o2, will talk with COMPENSATION AND BENEFITS ADMINISTRATOR regarding cpap
[2024-11-01] MEDS: ADVAIR HFA 115/21 MCG INHALER 2 PUFF INH ×2 (07:36→18:08)
--- NOTE | 2024-11-01 08:00 | PTCARENOTE ---
Received pt sleeping.Eyes open to voice.Speech is appropriate.Oriented x 3.+ANGELES.BL low ext weakness noted.Denies pain.SR noted.POX 95% on RA.Decreased breath sounds throughout.Appetite excellent.No BM.No urine output at this time.Skin integrity as
documented.Plan of care discussed.
[2024-11-01] MEDS: LASIX 40 MG PO (09:22)
[2024-11-01] MEDS: PEPCID 20 MG PO ×2 (09:23→20:05)
[2024-11-01] MEDS: DEPAKOTE (12 HR RELEASE) 1000 MG PO ×2 (09:23→20:05)
[2024-11-01] MEDS: CLARITIN 10 MG PO (09:23)
[2024-11-01] MEDS: PROTONIX 40 MG PO (09:23)
[2024-11-01] MEDS: ZYLOPRIM 100 MG PO (09:23)
[2024-11-01] MEDS: FEOSOL 325 MG PO (09:23)
--- NOTE | 2024-11-01 09:26 | CON.ID ---
Consultation
-
Date/Time Consultation Requested: 10/31/24 22:05
Date/Time Consultation Performed: 11/01/24 9:26
Requesting Provider: Wilfredo THOMPSON
Performing Provider: Dr Dhaliwal
Reason for Consultation: sepsis with unknown etiology
Chief Complaint / Past History
Chief Complaint
weakness
History of Present Illness
Mr Hurd is a 64 year old male with history of frontotemporal dementia with behavioral dysfunction, chronic bilateral lymphedema on SENIOR BENEFITS ANALYST lasix, gout who presented here 10/31 for weakness, cough, hypotension and tachycardia. Of note was on
antibiotics last week for 'cough.' At baseline he walks and feeds himself however staff noticed that he was no longer able to preofrm these tasks. He denies any fever, chills, shortness of breath, nausea, vomiting, dysira, constipation or
diarrhea, wounds, new rashes. During last admission lower extremity weakness noted and patients SENIOR BENEFITS ANALYST lasix dose was decreased from 40 mg PO BID to 40 mg PO qday.
Since arrival here tmax on arrival 100.8 (rectal) - no daniel fevers recorded, BP borderline hypotensive - received 1L has not required pressors thus far, tachycardia to low 100s resolved with fluids, RR overall in the teens, WBC initially 12.4 now
9.6, hgb 11.7 at his baseline , plt 102 (note intermittent, historic thrombocytopenia), L shift noted, cr 0.9 at his baseline, lactic acid initially 2.7 most recent available normalized at 1.6, crp 76, procal 0.24, UA no pyuria, covid ag negative,
CT head: no acute abnormality - chronic atrophy noted, CT a/p: abdominal hernias with minimal fat stranding, CXR: low lung volumes - my read no definitive infiltrates, flu negative, blood cultures x2 in progress, mrsa screen pending, currently on
vancomycin and zosyn, ID is consulted for assistance with management.
Past History
Additional Past Medical History:
frontotemporal dementia
HX behavioral dysfunction
essential hypertension
hypothyroidism
gout
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
Past Surgical History: None
Allergy History:
No Known Allergies Allergy (Verified 08/24/24 10:41)
Medications Reviewed: Yes
Social History
Tobacco: Former Smoker
Alcohol: Occasional
Drug: None
Family History
Family History: Not Pertinent
Review of Systems
Review of Systems
General: Negative Fever or Chills
All systems: All other systems were reviewed and were negative
Vital Signs
Temp Pulse Resp BP Pulse Ox
98.0 F 77 16 99/66 96
11/01/24 07:00 11/01/24 07:37 11/01/24 07:37 11/01/24 04:39 11/01/24 07:37
Physical Exam
Physical Exam
Constitutional: Acutely Ill and Chronically Ill
Head: Other (aracely dermattitis)
Cardiovascular: Regular Rate and S1/S2; Negative Murmur or Rub
Pulmonary: Clear and Symmetric; Negative Wheezes, Rales or Rhonchi
Gastrointestinal: Soft, Non Tender, Non Distended, Normal Bowel Sounds and Other (abdominal wall hernias not appreciated - abdominal wall soft, no erythema, warmth, swelling or tenderness)
Skin: Warm and Dry; Negative Rash or Jaundice
Wound: None
Neurological: Awake and Alert
Lab / Diagnostic Study Results
11/01/24 02:59
11/01/24 02:59
Abs Immat Gran (auto) 0.1 10^3/uL (0-0.05) H 10/31/24 13:48
Absolute Neuts (auto) 10.3 10^3/uL (1.4-6.5) H 10/31/24 13:48
Absolute Lymphs (auto) 0.7 10^3/uL (1.2-3.4) L 10/31/24 13:48
Absolute Monos (auto) 1.3 10^3/uL (0.1-0.6) H 10/31/24 13:48
Absolute Basos (auto) 0.0 10^3/uL (0-0.2) 10/31/24 13:48
Total Counted 100 10/31/24 13:48
Immature Gran % 0.7 % (0-0.5) H 10/31/24 13:48
Neutrophils % 83.4 % (42.2-75.2) H 10/31/24 13:48
Lymphocytes % 5.3 % (20.5-51.1) L 10/31/24 13:48
Monocytes % 10.2 % (1.7-9.3) H 10/31/24 13:48
Eosinophils % 0.2 % (0-6) 10/31/24 13:48
Basophils % 0.2 % (0-2) 10/31/24 13:48
Abs Neuts (Manual) 11.0 10^3/uL (1.4-6.5) H 10/31/24 13:48
Segmented Neutrophils 78 % (42-75) H 10/31/24 13:48
Band Neutrophils 11 % (0-3) H 10/31/24 13:48
Lymphocytes (Manual) 3 % (20-51) L 10/31/24 13:48
Eosinophils (Manual) 3 % (0-6) 10/31/24 13:48
Lactic Acid 1.6 mmol/L (0.7-2.0) 11/01/24 01:52
C-Reactive Protein 75.90 mg/L (0.0-10.00) H 11/01/24 02:59
Procalcitonin 0.24 ng/ml (0.0-0.25) 10/31/24 19:27
Microbiology Results
Micro:
10/31/24 23:56 MRSA Screen - Pending
Nose
10/31/24 18:27 Blood Culture - Pending
Blood/Venous
10/31/24 18:27 Blood Culture - Pending
Blood/Venous
10/31/24 14:35 Influenza Types A & B (JHONATHAN) - Final
Nasal Swab Negative for Influenza A & B, NAAT
Negative results must be combined with clinical observations
and patient history.
Nucleic Acid Amplification test (NAAT)performed on the
[employer] platform.
Assessment / Plan
Sepsis - improved
Leukocytosis - resolved
TME - improved to his baseline
Chronic bilateral lymphedema
Class II/borderline III obesity
Polypharmacy
- UA, CXR, CT a/p without definitive source
- umbilical and immediately adjacent left paramedian anterior abdominal wall hernias - unremarkable on physical exam
- covid and influenza negative
- blood cultures x2 in progress
- initially negative procalcitonin noted - would avoid sending procalcitonin unless intent is to stop antibiotics; in this case given resolving sepsis without a source would not stop antibiotics yet particularly as early procalcitonin can be falsely
negative
- patient was noted to have incidental hyperintense R parotid nodule - no documentation of follow up for this patient in [facility] - my office will contact the nursing facility to see if follow up was carried out
- dehydration and polypharmacy could also have contributed to quickly resolving TME, also note recent antibiotics which could have contributed - my office will call and see if we can get history on what antibiotics he received - paper chart was
reviewed and that information was not readily available. Viral causes also on the differential.
- compression for the lymphedema
- can continue vancomycin and zosyn for now
- if MRSA nasal screen negative can stop vancomycin
Seborrheic Dermatitis
- not the cause of TME/hypotension
- bothersome to patient
- ketoconazole BID x7-14 days
--- NOTE | 2024-11-01 09:50 | W.PN.HOSP.TC ---
Addendum entered and electronically signed by Pascual Gentile MD 11/02/24 08:37:
Correction:
Patient is on zosyn currently, f/u MRSA screen pending.
Original Note:
Today's Communication/Plan
-
stop vanc, downgrade to unasyn
f/u blood cs report
downgrade to med/surg
Assessment / Plan
Assessment / Plan
#Sepsis - POA
Suspected aspiration pneumonia
-Patient was febrile in ER with associated leukocytosis/confusion. Have anemia as well
-Patient history of dementia suspicion of aspiration pneumonia/pneumonitis
-Chest x-ray did not show any overt infiltrate
-CT abdomen pelvis without any clear etiology
-Flu/COVID-negative
-Blood culture collected and pending report
-Downgrade antibiotic to Unasyn and monitor
# Toxic metabolic encephalopathy
-Secondary to polypharmacy from chlorpromazine/Klonopin/Risperdal/divalproex
-No clear in indication to give scheduled chlorpromazine discontinuing first, will remove other medication if have further repeat sedation episodes.
#frontotemporal dementia with behavioral problems
- continue divalproex/risperidal for now
#hypothyroidism
- continue levothyroxine
#gout
- continue allopurinol
#GERD
- continue calcium carbonate, famotidine and pantoprazole
#factor V deficiency
- continue Xarelto
#chronic b/l LE edema
- continue furosemide
#essential hypertension
Code status: full code
DVT prophylaxis: Xarelto
Total time spent -53 minutes
Anticipated Discharge: 24 - 48 hours
Subjective/Interval History
-
Date of Service: November 01, 2024
Resting comfortably in bed
Remains afebrile
Waking up unable to clear speech therapy evaluation
Was retaining urine requiring straight catheterization
Objective Data
-
Labs:
Laboratory Results
11/01/24 11/01/24
02:43 02:59
WBC 9.6
Hgb 11.7 L
Hct 34.1 L
Plt Count 102 L
HCO3 32.0 H
Sodium 136
Potassium 3.8
Chloride 98
Carbon Dioxide 30
BUN 18
Creatinine 0.9
Glucose 84
Calcium 8.9
Total Bilirubin 1.0
AST 15 L
ALT 11
Alkaline Phosphatase 53
Vital Signs:
Vital Signs
Temp Pulse Resp BP Pulse Ox
98.0 F 77 16 99/66 96
11/01/24 07:00 11/01/24 07:37 11/01/24 07:37 11/01/24 04:39 11/01/24 07:37
Review of Systems
-
Unable to obtain full review of systems at this time due to: Dementia and Acuity
Physical Exam
-
General: No Apparent Distress, Comfortable and Obese
HEENT: Negative Oxygen
Respiratory: Clear to Auscultation
Cardiac: Regular Rhythm and S1/S2; Negative Murmur or Rub
GI: Soft, Nontender, Nondistended and Normal Bowel Sounds
Musculoskeletal: No Edema
Neuro: Awake, Alert, Oriented, No Motor Deficits and Nonfocal/Grossly Intact
Psych: Calm
[2024-11-01] MEDS: VITAMIN B-12 2000 MCG PO (10:36)
[2024-11-01] MEDS: RISPERDAL 1.5 MG PO ×2 (10:37→20:05)
[2024-11-01] MEDS: TRIAMCINOLONE ACETONIDE 0.025% OINTMENT 1 APPLIC TOPICAL (10:38)
[2024-11-01] MEDS: DICLOFENAC 1% TOPICAL GEL 100 GRAM TOPICAL ×2 (10:38→20:06)
[2024-11-01] MEDS: ZOSTRIX-HP 0.075% CREAM 1 APPLIC TOPICAL (10:39)
[2024-11-01] MEDS: THORAZINE PO (10:45)
--- NOTE | 2024-11-01 12:00 | PTCARENOTE ---
Pt assessed.No change in assessment noted.BL low extremity Sumanth wraps applied as ordered.BL knee high SCD applied as ordered.Pt's called and was given update.
[2024-11-01] MEDS: NIZORAL 2% CREAM 1 APPLIC TOPICAL ×2 (12:14→20:06)
--- NOTE | 2024-11-01 13:34 | CM ---
CM following re: discharge planning.
Reviewed pt's chart, met with pt and spoke to pt's ex-spouse Nirali.
Pt is a 64year old male, admitted with primary dx of
Pt is not a great historian, information obtained from pt's ex-spouse. Patient's ex-spouse stated that patient lives in the [facility] facility in [place]. Patient uses a walker at baseline. He needs assistance with all ADLs,
personal care, dressing and bathing. Pt was at [facility] recently, released on 09/28/24 and hospital bed was ordered by [facility]. Patient's espouse would like for patient to return back to [facility] when stable. Pt is active
with [facility] and [facility] at [facility].
CM spoke to [facility] [address] [phone] and she confirmed that pt will be accepted back and if pt needs a Roc Lift then it needs to be ordered. CM asked [facility] to confirm which DME they used to order a hospital bed.
PCP: Gabriele Shelley
Pharmacy: [facility]
D/C plan: return back to [facility] with resumptions of [facility] and [facility] outpatient rehab.
CM will follow with discharge plan updates as hospitalization progresses
--- NOTE | 2024-11-01 13:49 | CM ---
CM following re: discharge planning.
Reviewed pt's chart, met with pt and spoke to pt's ex-spouse Nirali.
Pt is a 64year old male, admitted with primary dx of Generalized weakness.
Pt is not a great historian, information obtained from pt's ex-spouse. Patient's ex-spouse stated that patient lives in the [facility] in [place]. Patient uses a walker at baseline. He needs assistance with all ADLs,
personal care, dressing and bathing. Pt was at [facility] recently, released on 09/28/24 and hospital bed was ordered by [facility]. Patient's espouse would like for patient to return back to [facility] when stable. Pt is active
with [facility] and [facility] at [facility].
CM spoke to [facility] [address] [phone] and she confirmed that pt will be accepted back and if pt needs a Roc Lift then it needs to be ordered. CM asked [facility] to confirm which DME they used to order a hospital bed.
PCP: Gabriele Shelley
Pharmacy: [facility]
D/C plan: return back to [facility] with resumptions of [facility] and [facility] outpatient rehab.
CM will follow with discharge plan updates as hospitalization progresses
--- NOTE | 2024-11-01 15:36 | CM ---
CM following re: discharge planning.
Reviewed pt's chart, met with pt and spoke to pt's spouse Nirali.
Pt is a 64year old male, admitted with primary dx of Generalized weakness.
Pt is not a great historian, information obtained from pt's spouse. Patient's spouse stated that patient lives in the [facility] facility in [place]. Patient uses a walker at baseline. He needs assistance with all ADLs,
personal care, dressing and bathing. Pt was at [facility] recently, released on 09/28/24 and hospital bed was ordered by [facility]. Patient's spouse would like for patient to return back to [facility] when stable. Pt is active with
[facility] and [facility]hab at [facility].
CM spoke to [facility] [address] [phone] and she confirmed that pt will be accepted back and if pt needs a Roc Lift then it needs to be ordered. CM asked [facility] to confirm which DME they used to order a hospital bed.
PCP: Gabriele Shelley
Pharmacy: [facility]
D/C plan: return back to [facility] with resumptions of [facility] care and [facility] rehab.
CM will follow with discharge plan updates as hospitalization progresses
[2024-11-01] MEDS: XARELTO 10 MG PO (18:42)
--- NOTE | 2024-11-01 21:23 | PTCARENOTE ---
patient transferred to [facility] surg
[2024-11-01] MEDS: TUMS CHEWABLE TABLET 400 MG PO (21:38)
[2024-11-01] MEDS: KLONOPIN 1.5 MG PO (21:38)
[2024-11-02] MEDS: ZOSYN 50 IV ×2 (00:35→05:40)
[2024-11-02] MEDS: SYNTHROID 50 MCG PO (05:45)
[2024-11-02 06:00] VITALS: BMI 40.3
[2024-11-02 07:20] VITALS: BP 105/61
[2024-11-02 07:24] LABS: Hematocrit 32.1 % (39.0-52.0); Hemoglobin 10.8 g/dL (13.0-18.0); Mean Corp Hgb Conc. 33.6 g/dL (33.0-37.0); Mean Corpuscular Hgb 29.6 pg (27.0-31.0); Mean Corpuscular Volume 87.9 fL (80.0-94.0); Mean Platelet Volume 10.1 fL (7.4-10.4); Platelet Count 109 10^3/uL (130-400); Red Blood Cell Count 3.65 10^6/uL (4.70-6.10); Red Cell Dist. Width 16.8 % (11.5-14.5); White Blood Cell Count 6.2 10^3/uL (4.8-10.8)
[2024-11-02 07:42] VITALS: BP 110/60
[2024-11-02 07:54] LABS: Blood Urea Nitrogen 18 mg/dl (9-20); Calcium 8.8 mg/dl (8.4-10.2); Carbon Dioxide 29 mmol/L (22-30); Chloride 99 mmol/L (98-107); Estimated Creatinine Clearance 100 ml/min; Glucose 80 mg/dl (70-99); Potassium 4.1 mmol/L (3.5-5.1); Sodium 137 mmol/L (135-145); eGFR > 60.00
[2024-11-02] MEDS: ADVAIR HFA 115/21 MCG INHALER 2 PUFF INH ×2 (07:56→19:28)
[2024-11-02] MEDS: RISPERDAL 1.5 MG PO ×2 (09:48→20:44)
[2024-11-02] MEDS: LASIX 40 MG PO (09:48)
[2024-11-02] MEDS: DEPAKOTE (12 HR RELEASE) 1000 MG PO ×2 (09:48→20:44)
[2024-11-02] MEDS: FEOSOL 325 MG PO (09:48)
[2024-11-02] MEDS: CLARITIN 10 MG PO (09:48)
[2024-11-02] MEDS: VITAMIN B-12 2000 MCG PO (09:49)
[2024-11-02] MEDS: ZYLOPRIM 100 MG PO (09:49)
[2024-11-02] MEDS: PROTONIX 40 MG PO (09:49)
[2024-11-02] MEDS: PEPCID 20 MG PO ×2 (09:49→20:44)
[2024-11-02] MEDS: NIZORAL 2% CREAM 1 APPLIC TOPICAL ×2 (09:57→20:51)
[2024-11-02] MEDS: DICLOFENAC 1% TOPICAL GEL 100 GRAM TOPICAL ×2 (09:58→20:50)
[2024-11-02] MEDS: TRIAMCINOLONE ACETONIDE 0.025% OINTMENT 1 APPLIC TOPICAL (09:59)
[2024-11-02] MEDS: ZOSTRIX-HP 0.075% CREAM 1 APPLIC TOPICAL (10:00)
--- NOTE | 2024-11-02 11:58 | W.PN.ID1 ---
Date of Service
Date of Service: November 02, 2024
Today's Communication
- stop antibiotics and follow clinically
Assessment / Plan
Sepsis - improved
Leukocytosis - resolved
TME - improved to his baseline
Chronic bilateral lymphedema
Class II/borderline III obesity
Polypharmacy
- UA, CXR, CT a/p without definitive source
- umbilical and immediately adjacent left paramedian anterior abdominal wall hernias - unremarkable on physical exam
- covid and influenza negative
- blood cultures x2 no growth to date
- initially negative procalcitonin noted
- patient was noted to have incidental hyperintense R parotid nodule - no documentation of follow up for this patient in [facility]
- dehydration and polypharmacy could also have contributed to quickly resolving TME, also note recent antibiotics which could have contributed
- no call back to my office from [facility]
- compression for the lymphedema
- stop antibiotics and follow clinically
Seborrheic Dermatitis
- not the cause of TME/hypotension
- bothersome to patient
- ketoconazole BID x7-14 days
Chief Complaint
-: Clinical Sepsis
Subjective / Review of Systems
afebrile
bp stable
no complaints - no fevers, chills, headache, sore throat, cough, sputum production, nausea, vomiting, diarrhea, constipation, dysuria, new rashes, new joint pains, pain over the lines
Vital Signs / Physical Exam
Vital Signs
Vital Signs
Temp Pulse Resp BP Pulse Ox
98.9 F 74 16 110/60 94
11/02/24 07:42 11/02/24 08:00 11/02/24 08:00 11/02/24 07:42 11/02/24 08:00
Physical Exam
Constitutional: No Acute Distress
Cardiovascular: Regular Rate and S1/S2; Negative Murmur or Rub
Pulmonary: Clear and Symmetric; Negative Wheezes or Rales
Gastrointestinal: Soft, Non Tender, Non Distended and Normal Bowel Sounds
Skin: Warm and Dry; Negative Rash or Jaundice
Objective Data
Lab Data
Lab Results
11/02/24 06:49
11/02/24 06:49
Estimated Creat Clear 100 ml/min 11/02/24 06:49
Lactic Acid Cancelled 11/01/24 07:30
Total Bilirubin 1.0 mg/dl (0.2-1.3) 11/01/24 02:59
AST 15 U/L (17-59) L 11/01/24 02:59
ALT 11 U/L (0-50) 11/01/24 02:59
Alkaline Phosphatase 53 U/L (38-126) 11/01/24 02:59
C-Reactive Protein 75.90 mg/L (0.0-10.00) H 11/01/24 02:59
Most recent labs reviewed.
Micro Results:
10/31/24 23:56 MRSA Screen - Final
Nose No Methicillin Resistant Staphylococcus aureus isolated.
10/31/24 18:27 Blood Culture - Preliminary
Blood/Venous No Growth in 24 hours- Final report to follow
10/31/24 18:27 Blood Culture - Preliminary
Blood/Venous No Growth in 24 hours- Final report to follow
10/31/24 14:35 Influenza Types A & B (JHONATHAN) - Final
Nasal Swab Negative for Influenza A & B, NAAT
Negative results must be combined with clinical observations
and patient history.
Nucleic Acid Amplification test (NAAT)performed on the
[employer] platform.
--- NOTE | 2024-11-02 12:19 | W.PN.HOSP.TC ---
Today's Communication/Plan
-
see note
Assessment / Plan
Assessment / Plan
#Sepsis - POA - Improving
Suspected aspiration pneumonia
-Patient was febrile in ER with associated leukocytosis/confusion. Have anemia as well
-Patient history of dementia suspicion of aspiration pneumonia/pneumonitis
-Chest x-ray did not show any overt infiltrate
-CT abdomen pelvis without any clear etiology
-Flu/COVID-negative
-Blood culture collected and pending report
-ID following for abx and help appreciated.
# Toxic metabolic encephalopathy - improved
-Secondary to polypharmacy from chlorpromazine/Klonopin/Risperdal/divalproex
-No clear in indication to give scheduled chlorpromazine discontinuing first, will remove other medication if have further repeat sedation episodes.
# Frontotemporal dementia with behavioral problems
- continue divalproex/Risperdal for now
# Hypothyroidism
- continue levothyroxine
# Gout
- continue allopurinol
# GERD
- continue calcium carbonate, famotidine and pantoprazole
# Factor V deficiency
- continue Xarelto
#chronic b/l LE edema
- continue furosemide
#essential hypertension
Code status: full code
DVT prophylaxis: Xarelto
Anticipated Discharge: Within 24 hours
Subjective/Interval History
-
Date of Service: November 02, 2024
waking up , no acute issues reported
not needing o2
afebrile in night
Objective Data
-
Labs:
Laboratory Results
11/02/24
06:49
WBC 6.2
Hgb 10.8 L
Hct 32.1 L
Plt Count 109 L
Sodium 137
Potassium 4.1
Chloride 99
Carbon Dioxide 29
BUN 18
Creatinine 0.9
Glucose 80
Calcium 8.8
Vital Signs:
Vital Signs
Temp Pulse Resp BP Pulse Ox
98.9 F 74 16 110/60 94
11/02/24 07:42 11/02/24 08:00 11/02/24 08:00 11/02/24 07:42 11/02/24 08:00
I&O
11/01/24 11/02/24 11/03/24
06:59 06:59 06:59
Intake Total 1260 / 1260
Output Total 970 / 970
Balance 290 / 290
Review of Systems
-
Respiratory: Reports No Symptoms
Cardiac: Reports No Symptoms
Abdomen/GI: Reports No Symptoms
Physical Exam
-
General: No Apparent Distress, Comfortable and Obese
HEENT: Negative Oxygen
Respiratory: Clear to Auscultation
Cardiac: Regular Rhythm and S1/S2; Negative Murmur or Rub
GI: Soft, Nontender and Nondistended
Musculoskeletal: No Edema
Neuro: Awake, Alert, Oriented, No Motor Deficits and Nonfocal/Grossly Intact
Psych: Calm
[2024-11-02] MEDS: ZOSYN IV (12:26)
[2024-11-02 15:02] VITALS: BP 110/63
[2024-11-02] MEDS: XARELTO 10 MG PO (18:19)
[2024-11-02] MEDS: KLONOPIN 1.5 MG PO (22:23)
[2024-11-02 23:00] VITALS: BP 119/66
[2024-11-03] MEDS: SYNTHROID 50 MCG PO (06:00)
[2024-11-03 06:49] LABS: Hematocrit 34.3 % (39.0-52.0); Hemoglobin 11.6 g/dL (13.0-18.0); Mean Corp Hgb Conc. 33.8 g/dL (33.0-37.0); Mean Corpuscular Hgb 30.1 pg (27.0-31.0); Mean Corpuscular Volume 88.9 fL (80.0-94.0); Mean Platelet Volume 9.5 fL (7.4-10.4); Platelet Count 108 10^3/uL (130-400); Red Blood Cell Count 3.86 10^6/uL (4.70-6.10); Red Cell Dist. Width 17.1 % (11.5-14.5)
[2024-11-03 07:12] LABS: Blood Urea Nitrogen 20 mg/dl (9-20); Calcium 9.2 mg/dl (8.4-10.2); Carbon Dioxide 30 mmol/L (22-30); Chloride 98 mmol/L (98-107); Estimated Creatinine Clearance 90 ml/min; Glucose 86 mg/dl (70-99); Potassium 4.2 mmol/L (3.5-5.1); Sodium 136 mmol/L (135-145); eGFR > 60.00
[2024-11-03] MEDS: ADVAIR HFA 115/21 MCG INHALER 2 PUFF INH ×2 (07:27→19:30)
[2024-11-03 07:30] VITALS: BP 134/77
[2024-11-03] MEDS: RISPERDAL 1.5 MG PO ×2 (08:02→23:01)
[2024-11-03] MEDS: CLARITIN 10 MG PO (08:03)
[2024-11-03] MEDS: LASIX 40 MG PO (08:03)
[2024-11-03] MEDS: PEPCID 20 MG PO ×2 (08:03→23:04)
[2024-11-03] MEDS: PROTONIX 40 MG PO (08:03)
[2024-11-03] MEDS: ZYLOPRIM 100 MG PO (08:03)
[2024-11-03] MEDS: FEOSOL 325 MG PO (08:03)
[2024-11-03] MEDS: VITAMIN B-12 2000 MCG PO (08:03)
[2024-11-03] MEDS: DEPAKOTE (12 HR RELEASE) 1000 MG PO ×2 (08:04→23:04)
[2024-11-03] MEDS: TYLENOL 650 MG PO (08:04)
[2024-11-03] MEDS: NIZORAL 2% CREAM 1 APPLIC TOPICAL ×2 (08:10→22:33)
[2024-11-03] MEDS: DICLOFENAC 1% TOPICAL GEL 100 GRAM TOPICAL ×2 (08:11→22:59)
[2024-11-03] MEDS: ZOSTRIX-HP 0.075% CREAM 1 APPLIC TOPICAL (08:12)
[2024-11-03] MEDS: TRIAMCINOLONE ACETONIDE 0.025% OINTMENT 1 APPLIC TOPICAL (08:12)
[2024-11-03] MEDS: DRISDOL (VITAMIN D2) 5000 UNITS PO (08:13)
[2024-11-03 08:28] VITALS: BP 138/92
--- NOTE | 2024-11-03 13:03 | W.PN.ID1 ---
Date of Service
Date of Service: November 03, 2024
Today's Communication
- cultures remain negative
- patient stable off of antibiotics
- stable for dc from ID perspective
Seborrheic Dermatitis
- ketoconazole BID x7-14 days
Assessment / Plan
Sepsis - improved
Leukocytosis - resolved
TME - improved to his baseline
Chronic bilateral lymphedema
Class II/borderline III obesity
Polypharmacy
- cultures remain negative
- patient stable off of antibiotics
- stable for dc from ID perspective
Seborrheic Dermatitis
- ketoconazole BID x7-14 days
Chief Complaint
-: Clinical Sepsis
Subjective / Review of Systems
afebrile
bp stable
no medical complaints
'I want to go home'
Vital Signs / Physical Exam
Vital Signs
Vital Signs
Temp Pulse Resp BP Pulse Ox
97.8 F 91 18 138/92 94
11/03/24 08:28 11/03/24 08:28 11/03/24 08:28 11/03/24 08:28 11/03/24 08:28
Physical Exam
Constitutional: No Acute Distress
Cardiovascular: Regular Rate and S1/S2; Negative Murmur or Rub
Pulmonary: Clear and Symmetric; Negative Wheezes or Rales
Gastrointestinal: Soft, Non Tender, Non Distended and Normal Bowel Sounds
Skin: Warm and Dry; Negative Rash or Jaundice
Objective Data
Lab Data
Lab Results
11/03/24 06:27
11/03/24 06:27
Estimated Creat Clear 90 ml/min 11/03/24 06:27
Lactic Acid Cancelled 11/01/24 07:30
Total Bilirubin 1.0 mg/dl (0.2-1.3) 11/01/24 02:59
AST 15 U/L (17-59) L 11/01/24 02:59
ALT 11 U/L (0-50) 11/01/24 02:59
Alkaline Phosphatase 53 U/L (38-126) 11/01/24 02:59
C-Reactive Protein 75.90 mg/L (0.0-10.00) H 11/01/24 02:59
Most recent labs reviewed.
Micro Results:
10/31/24 18:27 Blood Culture - Preliminary
Blood/Venous No Growth in 48 hours- Final report to follow
10/31/24 18:27 Blood Culture - Preliminary
Blood/Venous No Growth in 48 hours- Final report to follow
10/31/24 23:56 MRSA Screen - Final
Nose No Methicillin Resistant Staphylococcus aureus isolated.
10/31/24 14:35 Influenza Types A & B (JHONATHAN) - Final
Nasal Swab Negative for Influenza A & B, NAAT
Negative results must be combined with clinical observations
and patient history.
Nucleic Acid Amplification test (NAAT)performed on the
[employer] platform.
--- NOTE | 2024-11-03 14:31 | W.PN.HOSP.TC ---
Today's Communication/Plan
-
medically clear for discharge
stable for snf rehab placement
Assessment / Plan
Assessment / Plan
#Sepsis - POA - Improving
Suspected aspiration pneumonia
-Patient was febrile in ER with associated leukocytosis/confusion. Have anemia as well
-Patient history of dementia suspicion of aspiration pneumonia/pneumonitis
-Chest x-ray did not show any overt infiltrate
-CT abdomen pelvis without any clear etiology
-Flu/COVID-negative
-Blood culture neg
-Patient being monitored off abx.
# Toxic metabolic encephalopathy - improved
-Secondary to polypharmacy from chlorpromazine/Klonopin/Risperdal/divalproex
-No clear in indication to give scheduled chlorpromazine discontinuing first, will remove other medication if have further repeat sedation episodes.
# Frontotemporal dementia without behavioral problems
-continue divalproex/Risperdal for now
-Patient remains very pleasant without any behavioral issues reported.
# Hypothyroidism
- continue levothyroxine
# Gout
- continue allopurinol
# GERD
- continue calcium carbonate, famotidine and pantoprazole
# Factor V deficiency
- continue Xarelto
#chronic b/l LE edema
- continue furosemide
#essential hypertension
Code status: full code
DVT prophylaxis: Xarelto
Anticipated Discharge: Within 24 hours
Subjective/Interval History
-
Date of Service: November 03, 2024
Resting comfortably in bed
Not hypoxic
Afebrile overnight
Objective Data
-
Labs:
Laboratory Results
11/03/24
06:27
WBC 6.0
Hgb 11.6 L
Hct 34.3 L
Plt Count 108 L
Sodium 136
Potassium 4.2
Chloride 98
Carbon Dioxide 30
BUN 20
Creatinine 1.0
Glucose 86
Calcium 9.2
Vital Signs:
Vital Signs
Temp Pulse Resp BP Pulse Ox
97.8 F 91 18 138/92 94
11/03/24 08:28 11/03/24 08:28 11/03/24 08:28 11/03/24 08:28 11/03/24 08:28
I&O
11/02/24 11/03/24 11/04/24
06:59 06:59 06:59
Intake Total 1260 / 1260 960 / 960
Output Total 970 / 970 2350 / 2350
Balance 290 / 290 -1390 / -1390
Review of Systems
-
Respiratory: Reports No Symptoms
Cardiac: Reports No Symptoms
Abdomen/GI: Reports No Symptoms
Physical Exam
-
General: No Apparent Distress, Comfortable and Obese
HEENT: Negative Oxygen
Respiratory: Clear to Auscultation
Cardiac: Regular Rhythm and S1/S2; Negative Murmur or Rub
GI: Soft, Nontender and Nondistended
Musculoskeletal: No Edema
Neuro: Awake, Alert, Oriented, No Motor Deficits and Nonfocal/Grossly Intact
Psych: Calm
--- NOTE | 2024-11-03 15:38 | CM ---
Addendum entered by MANA Cid 11/03/24 17:52:
Placed a call to [facility]. [phone] Spoke with the director, Ryann, who stated that until she knows how patient is able to transfer, she will be unable to accept back. Will update PT to determine if they can safely have him demonstrate.
Patient's updated. She stated that she does not want for patient to go to SNF and would like for him to return back. Will review functional status with [facility] as it becomes available.
Original Note:
Spoke with attending who stated that patient will need SNF (per PT). Will discuss with patient's family and facility.
Plan: Case management will continue to follow and assist with discharge planning. SNF when stable.
[2024-11-03 16:00] VITALS: BP 120/74
[2024-11-03] MEDS: XARELTO 10 MG PO (17:47)
[2024-11-03] MEDS: KLONOPIN 1.5 MG PO (23:10)
[2024-11-03 23:20] VITALS: BP 127/72
[2024-11-04] MEDS: SYNTHROID 50 MCG PO (05:55)
[2024-11-04 07:16] VITALS: BP 110/68
[2024-11-04 07:17] LABS: Hematocrit 34.9 % (39.0-52.0); Hemoglobin 11.8 g/dL (13.0-18.0); Mean Corp Hgb Conc. 33.8 g/dL (33.0-37.0); Mean Corpuscular Hgb 30.2 pg (27.0-31.0); Mean Corpuscular Volume 89.3 fL (80.0-94.0); Mean Platelet Volume 9.7 fL (7.4-10.4); Platelet Count 128 10^3/uL (130-400); Red Blood Cell Count 3.91 10^6/uL (4.70-6.10); Red Cell Dist. Width 16.8 % (11.5-14.5); White Blood Cell Count 5.8 10^3/uL (4.8-10.8)
[2024-11-04] MEDS: ADVAIR HFA 115/21 MCG INHALER 2 PUFF INH ×2 (07:40→19:38)
[2024-11-04] MEDS: CLARITIN 10 MG PO (08:20)
[2024-11-04] MEDS: DEPAKOTE (12 HR RELEASE) 1000 MG PO ×2 (08:20→21:31)
[2024-11-04] MEDS: PEPCID 20 MG PO ×2 (08:20→21:28)
[2024-11-04] MEDS: LASIX 40 MG PO (08:20)
[2024-11-04] MEDS: VITAMIN B-12 2000 MCG PO (08:20)
[2024-11-04] MEDS: FEOSOL 325 MG PO (08:20)
[2024-11-04] MEDS: ZYLOPRIM 100 MG PO (08:20)
[2024-11-04] MEDS: RISPERDAL 1.5 MG PO ×2 (08:20→21:29)
[2024-11-04] MEDS: PROTONIX 40 MG PO (08:20)
[2024-11-04 08:21] LABS: Blood Urea Nitrogen 24 mg/dl (9-20); Calcium 9.2 mg/dl (8.4-10.2); Carbon Dioxide 28 mmol/L (22-30); Chloride 98 mmol/L (98-107); Estimated Creatinine Clearance 90 ml/min; Glucose 85 mg/dl (70-99); Potassium 4.2 mmol/L (3.5-5.1); Sodium 135 mmol/L (135-145); eGFR > 60.00
[2024-11-04] MEDS: DICLOFENAC 1% TOPICAL GEL 100 GRAM TOPICAL ×2 (08:21→21:32)
[2024-11-04] MEDS: TRIAMCINOLONE ACETONIDE 0.025% OINTMENT 1 APPLIC TOPICAL (08:21)
[2024-11-04] MEDS: ZOSTRIX-HP 0.075% CREAM 1 APPLIC TOPICAL (08:23)
[2024-11-04] MEDS: NIZORAL 2% CREAM 1 APPLIC TOPICAL ×2 (08:23→21:34)
--- NOTE | 2024-11-04 11:36 | W.PN.ID1 ---
Date of Service
Date of Service: November 04, 2024
Today's Communication
- ketoconazole cream BID x7-14 days
Assessment / Plan
Sepsis - improved
Leukocytosis - resolved
TME - improved to his baseline
Chronic bilateral lymphedema
Class II/borderline III obesity
Polypharmacy
- cultures remain negative
- patient stable off of antibiotics
- stable for dc from ID perspective
Seborrheic Dermatitis
- ketoconazole cream BID x7-14 days
Chief Complaint
-: Clinical Sepsis
Subjective / Review of Systems
afebrile
bp stable
no events overnight
no complaints
Vital Signs / Physical Exam
Vital Signs
Vital Signs
Temp Pulse Resp BP Pulse Ox
97.4 F 60 16 110/68 94
11/04/24 07:16 11/04/24 07:48 11/04/24 07:48 11/04/24 07:16 11/04/24 07:48
Physical Exam
Constitutional: No Acute Distress
Cardiovascular: Regular Rate and S1/S2; Negative Murmur or Rub
Pulmonary: Clear and Symmetric; Negative Wheezes or Rales
Gastrointestinal: Soft, Non Tender, Non Distended and Normal Bowel Sounds
Skin: Warm and Dry; Negative Rash or Jaundice
Objective Data
Lab Data
Lab Results
11/04/24 06:36
11/04/24 06:36
Estimated Creat Clear 90 ml/min 11/04/24 06:36
Lactic Acid Cancelled 11/01/24 07:30
Total Bilirubin 1.0 mg/dl (0.2-1.3) 11/01/24 02:59
AST 15 U/L (17-59) L 11/01/24 02:59
ALT 11 U/L (0-50) 11/01/24 02:59
Alkaline Phosphatase 53 U/L (38-126) 11/01/24 02:59
C-Reactive Protein 75.90 mg/L (0.0-10.00) H 11/01/24 02:59
Most recent labs reviewed.
Micro Results:
10/31/24 18:27 Blood Culture - Preliminary
Blood/Venous No Growth in 72 hours- Final report to follow
10/31/24 18:27 Blood Culture - Preliminary
Blood/Venous No Growth in 72 hours- Final report to follow
10/31/24 23:56 MRSA Screen - Final
Nose No Methicillin Resistant Staphylococcus aureus isolated.
10/31/24 14:35 Influenza Types A & B ([facility]HONATHAN) - Final
Nasal Swab Negative for Influenza A & B, NAAT
Negative results must be combined with clinical observations
and patient history.
Nucleic Acid Amplification test (NAAT)performed on the
[employer] platform.
--- NOTE | 2024-11-04 12:42 | W.PN.HOSP.TC ---
Today's Communication/Plan
-
medically stable for discharge
Assessment / Plan
Assessment / Plan
#Sepsis - POA - Improved
Suspected aspiration pneumonia
-Patient was febrile in ER with associated leukocytosis/confusion. Have anemia as well
-Patient history of dementia suspicion of aspiration pneumonia/pneumonitis
-Chest x-ray did not show any overt infiltrate
-CT abdomen pelvis without any clear etiology
-Flu/COVID-negative
-Blood culture neg
-Patient being monitored off abx.
# Toxic metabolic encephalopathy - improved
-Secondary to polypharmacy from chlorpromazine/Klonopin/Risperdal/divalproex
-No clear in indication to give scheduled chlorpromazine discontinuing first, will remove other medication if have further repeat sedation episodes.
# Frontotemporal dementia without behavioral problems
-continue divalproex/Risperdal for now
-Patient remains very pleasant without any behavioral issues reported.
# Hypothyroidism
- continue levothyroxine
# Gout
- continue allopurinol
# GERD
- continue calcium carbonate, famotidine and pantoprazole
# Factor V deficiency
- continue Xarelto
#chronic b/l LE edema
- continue furosemide
#essential hypertension
Code status: full code
DVT prophylaxis: Xarelto
Anticipated Discharge: Today
Subjective/Interval History
-
Date of Service: November 04, 2024
Resting comfortable in bed
no sob/not on oxygen
Objective Data
-
Labs:
Laboratory Results
11/04/24
06:36
WBC 5.8
Hgb 11.8 L
Hct 34.9 L
Plt Count 128 L
Sodium 135
Potassium 4.2
Chloride 98
Carbon Dioxide 28
BUN 24 H
Creatinine 1.0
Glucose 85
Calcium 9.2
Vital Signs:
Vital Signs
Temp Pulse Resp BP Pulse Ox
97.4 F 60 16 110/68 94
11/04/24 07:16 11/04/24 07:48 11/04/24 07:48 11/04/24 07:16 11/04/24 07:48
I&O
11/03/24 11/04/24 11/05/24
06:59 06:59 06:59
Intake Total 960 / 960 800 / 800
Output Total 2350 / 2350 1300 / 1300
Balance -1390 / -1390 -500 / -500
Review of Systems
-
Respiratory: Reports No Symptoms
Cardiac: Reports No Symptoms
Abdomen/GI: Reports No Symptoms
Physical Exam
-
General: No Apparent Distress, Comfortable and Obese
HEENT: Negative Oxygen
Respiratory: Clear to Auscultation
Cardiac: Regular Rhythm and S1/S2; Negative Murmur or Rub
GI: Soft, Nontender and Nondistended
Musculoskeletal: No Edema
Neuro: Awake, Alert, Oriented, No Motor Deficits and Nonfocal/Grossly Intact
Psych: Calm
[2024-11-04 15:05] VITALS: BP 136/78
[2024-11-04] MEDS: XARELTO 10 MG PO (16:49)
[2024-11-04] MEDS: KLONOPIN 1.5 MG PO (21:38)
[2024-11-04] MEDS: TUMS CHEWABLE TABLET 400 MG PO (22:28)
[2024-11-04 23:10] VITALS: BP 100/64
[2024-11-05] MEDS: SYNTHROID 50 MCG PO (05:42)
[2024-11-05 07:05] VITALS: BMI 38.9
[2024-11-05] MEDS: ADVAIR HFA 115/21 MCG INHALER 2 PUFF INH ×2 (07:11→18:12)
[2024-11-05 07:42] VITALS: BP 96/56
[2024-11-05] MEDS: CLARITIN 10 MG PO (08:09)
[2024-11-05] MEDS: PEPCID 20 MG PO ×2 (08:10→21:06)
[2024-11-05] MEDS: PROTONIX 40 MG PO (08:10)
[2024-11-05] MEDS: RISPERDAL 1.5 MG PO ×2 (08:10→21:07)
[2024-11-05] MEDS: ZYLOPRIM 100 MG PO (08:10)
[2024-11-05] MEDS: VITAMIN B-12 2000 MCG PO (08:10)
[2024-11-05] MEDS: FEOSOL 325 MG PO (08:10)
[2024-11-05] MEDS: TRIAMCINOLONE ACETONIDE 0.025% OINTMENT 1 APPLIC TOPICAL (08:11)
[2024-11-05] MEDS: ZOSTRIX-HP 0.075% CREAM 1 APPLIC TOPICAL (08:14)
[2024-11-05] MEDS: NIZORAL 2% CREAM 1 APPLIC TOPICAL ×2 (08:15→21:09)
[2024-11-05] MEDS: DICLOFENAC 1% TOPICAL GEL 100 GRAM TOPICAL ×2 (08:16→21:10)
[2024-11-05] MEDS: DEPAKOTE (12 HR RELEASE) 1000 MG PO ×2 (08:16→21:05)
[2024-11-05] MEDS: LASIX 40 MG PO (10:06)
[2024-11-05 13:13] VITALS: BP 116/66; PULSE 72; O2SAT 99
[2024-11-05 13:18] VITALS: BP 116/66; PULSE 74; O2SAT 99
--- NOTE | 2024-11-05 14:12 | W.PN.HOSP.TC ---
Today's Communication/Plan
-
medically clear for discharge
Assessment / Plan
Assessment / Plan
#Sepsis - POA - Improved
Suspected aspiration pneumonia
-Patient was febrile in ER with associated leukocytosis/confusion. Have anemia as well
-Patient history of dementia suspicion of aspiration pneumonia/pneumonitis
-Chest x-ray did not show any overt infiltrate
-CT abdomen pelvis without any clear etiology
-Flu/COVID-negative
-Blood culture neg
-Patient being monitored off abx.
# Toxic metabolic encephalopathy - improved
-Secondary to polypharmacy from chlorpromazine/Klonopin/Risperdal/divalproex
-No clear in indication to give scheduled chlorpromazine discontinuing first, will remove other medication if have further repeat sedation episodes.
# Frontotemporal dementia without behavioral problems
-continue divalproex/Risperdal for now
-Patient remains very pleasant without any behavioral issues reported.
# Hypothyroidism
- continue levothyroxine
# Gout
- continue allopurinol
# GERD
- continue calcium carbonate, famotidine and pantoprazole
# Factor V deficiency
- continue Xarelto
#chronic b/l LE edema
- continue furosemide
#essential hypertension
Code status: full code
DVT prophylaxis: Xarelto
Anticipated Discharge: Today
Subjective/Interval History
-
Date of Service: November 05, 2024
No new complaints overnight
Seen comfortably in chair
Objective Data
-
Vital Signs:
Vital Signs
Temp Pulse Resp BP Pulse Ox
97.7 F 70 16 127/58 96
11/05/24 07:42 11/05/24 10:06 11/05/24 07:42 11/05/24 10:06 11/05/24 07:42
I&O
11/04/24 11/05/24 11/06/24
06:59 06:59 06:59
Intake Total 800 / 800 960 / 960 50 / 50
Output Total 1300 / 1300 1050 / 1050 550 / 550
Balance -500 / -500 -90 / -90 -500 / -500
Review of Systems
-
Respiratory: Reports No Symptoms
Cardiac: Reports No Symptoms
Abdomen/GI: Reports No Symptoms
Physical Exam
-
General: No Apparent Distress, Comfortable and Obese
HEENT: Negative Oxygen
Respiratory: Clear to Auscultation
Cardiac: Regular Rhythm and S1/S2; Negative Murmur or Rub
GI: Soft, Nontender and Nondistended
Musculoskeletal: No Edema
Neuro: Awake, Alert, Oriented, No Motor Deficits and Nonfocal/Grossly Intact
Psych: Calm
--- NOTE | 2024-11-05 14:32 | W.PN.ID1 ---
Date of Service
Date of Service: November 05, 2024
Today's Communication
ID service will no longer actively follow this patient please recall for further questions
Assessment / Plan
Sepsis - improved
Leukocytosis - resolved
TME - improved to his baseline
Chronic bilateral lymphedema
Class II/borderline III obesity
Polypharmacy
- cultures remain negative
- patient stable off of antibiotics
- stable for dc from ID perspective; ID service will no longer actively follow this patient please recall for further questions
Seborrheic Dermatitis
- ketoconazole cream BID x7-14 days
Chief Complaint
-: Clinical Sepsis
Subjective / Review of Systems
afebrile
bp stable
no complaints
Vital Signs / Physical Exam
Vital Signs
Vital Signs
Temp Pulse Resp BP Pulse Ox
97.7 F 70 16 127/58 96
11/05/24 07:42 11/05/24 10:06 11/05/24 07:42 11/05/24 10:06 11/05/24 07:42
Physical Exam
Constitutional: No Acute Distress
Cardiovascular: Regular Rate and S1/S2; Negative Murmur or Rub
Pulmonary: Clear and Symmetric; Negative Wheezes or Rales
Gastrointestinal: Soft, Non Tender, Non Distended and Normal Bowel Sounds
Skin: Warm and Dry; Negative Rash or Jaundice
Objective Data
Lab Data
Lab Results
11/04/24 06:36
11/04/24 06:36
Estimated Creat Clear 90 ml/min 11/04/24 06:36
Lactic Acid Cancelled 11/01/24 07:30
Total Bilirubin 1.0 mg/dl (0.2-1.3) 11/01/24 02:59
AST 15 U/L (17-59) L 11/01/24 02:59
ALT 11 U/L (0-50) 11/01/24 02:59
Alkaline Phosphatase 53 U/L (38-126) 11/01/24 02:59
C-Reactive Protein 75.90 mg/L (0.0-10.00) H 11/01/24 02:59
Most recent labs reviewed.
Micro Results:
10/31/24 18:27 Blood Culture - Preliminary
Blood/Venous No Growth in 4 days- Final report to follow
10/31/24 18:27 Blood Culture - Preliminary
Blood/Venous No Growth in 4 days- Final report to follow
10/31/24 23:56 MRSA Screen - Final
Nose No Methicillin Resistant Staphylococcus aureus isolated.
10/31/24 14:35 Influenza Types A & B (JHONATHAN) - Final
Nasal Swab Negative for Influenza A & B, NAAT
Negative results must be combined with clinical observations
and patient history.
Nucleic Acid Amplification test (NAAT)performed on the
[employer] platform.
[2024-11-05 15:03] VITALS: BP 142/75
--- NOTE | 2024-11-05 15:44 | CM ---
Spoke with Ryann at [facility] who stated that she is willing/able to accept patient back when medically cleared. If over the w/e, it would have to be prior to 12 as their pharmacy closes early. She stated that patient will need VN and
chooses [facility], He will need a [facility] Lift which was communicated to [facility]. Referral sent for their services.
Plan: Case management will continue to follow and assist with discharge planning. Back to [facility] when stable.
[2024-11-05] MEDS: XARELTO 10 MG PO (17:01)
[2024-11-05] MEDS: TYLENOL 650 MG PO (19:12)
[2024-11-05] MEDS: KLONOPIN 1.5 MG PO (21:04)
[2024-11-05 23:33] VITALS: BP 115/67
[2024-11-06 05:36] VITALS: BMI 39.1
[2024-11-06] MEDS: SYNTHROID 50 MCG PO (06:00)
[2024-11-06 07:00] VITALS: BP 127/78
[2024-11-06] MEDS: ADVAIR HFA 115/21 MCG INHALER 2 PUFF INH ×2 (07:11→19:06)
[2024-11-06] MEDS: DEPAKOTE (12 HR RELEASE) 1000 MG PO ×2 (08:14→20:11)
[2024-11-06] MEDS: LASIX 40 MG PO (08:14)
[2024-11-06] MEDS: RISPERDAL 1.5 MG PO ×2 (08:14→20:12)
[2024-11-06] MEDS: VITAMIN B-12 2000 MCG PO (08:15)
[2024-11-06] MEDS: FEOSOL 325 MG PO (08:15)
[2024-11-06] MEDS: ZYLOPRIM 100 MG PO (08:15)
[2024-11-06] MEDS: CLARITIN 10 MG PO (08:16)
[2024-11-06] MEDS: PROTONIX 40 MG PO (08:16)
[2024-11-06] MEDS: PEPCID 20 MG PO ×2 (08:16→20:12)
[2024-11-06] MEDS: DICLOFENAC 1% TOPICAL GEL 100 GRAM TOPICAL ×2 (08:16→21:26)
[2024-11-06] MEDS: TRIAMCINOLONE ACETONIDE 0.025% OINTMENT 1 APPLIC TOPICAL (08:17)
[2024-11-06] MEDS: NIZORAL 2% CREAM 1 APPLIC TOPICAL ×2 (08:17→21:27)
[2024-11-06] MEDS: ZOSTRIX-HP 0.075% CREAM 1 APPLIC TOPICAL (08:18)
[2024-11-06 09:05] LABS: Hemoglobin 12.3 g/dL (13.0-18.0); Mean Corp Hgb Conc. 33.2 g/dL (33.0-37.0); Mean Corpuscular Hgb 30.1 pg (27.0-31.0); Mean Corpuscular Volume 90.5 fL (80.0-94.0); Mean Platelet Volume 9.1 fL (7.4-10.4); Platelet Count 146 10^3/uL (130-400); Red Blood Cell Count 4.09 10^6/uL (4.70-6.10); Red Cell Dist. Width 16.3 % (11.5-14.5); White Blood Cell Count 5.8 10^3/uL (4.8-10.8)
[2024-11-06 09:46] LABS: Blood Urea Nitrogen 21 mg/dl (9-20); Calcium 9.3 mg/dl (8.4-10.2); Carbon Dioxide 31 mmol/L (22-30); Chloride 97 mmol/L (98-107); Estimated Creatinine Clearance 98 ml/min; Glucose 75 mg/dl (70-99); Potassium 4.3 mmol/L (3.5-5.1); Sodium 136 mmol/L (135-145); eGFR > 60.00
--- NOTE | 2024-11-06 11:19 | W.PN.HOSP.TC ---
Today's Communication/Plan
-
medically clear
discharge planning
Assessment / Plan
Assessment / Plan
#Sepsis - POA - Improved
Suspected aspiration pneumonia - Resolved
-Patient was febrile in ER with associated leukocytosis/confusion. Have anemia as well
-Patient history of dementia suspicion of aspiration pneumonia/pneumonitis
-Chest x-ray did not show any overt infiltrate
-CT abdomen pelvis without any clear etiology
-Flu/COVID-negative
-Blood culture neg
-Patient being monitored off abx.
# Toxic metabolic encephalopathy - improved
-Secondary to polypharmacy from chlorpromazine/Klonopin/Risperdal/divalproex
-No clear in indication to give scheduled chlorpromazine discontinuing first, will remove other medication if have further repeat sedation episodes.
# Frontotemporal dementia without behavioral problems
-continue divalproex/Risperdal for now
-Patient remains very pleasant without any behavioral issues reported.
# Hypothyroidism
- continue levothyroxine
# Gout
- continue allopurinol
# GERD
- continue calcium carbonate, famotidine and pantoprazole
# Factor V deficiency
- continue Xarelto
#chronic b/l LE edema
- continue furosemide
#essential hypertension
Code status: full code
DVT prophylaxis: Xarelto
Anticipated Discharge: 24 - 48 hours
Subjective/Interval History
-
Date of Service: November 06, 2024
no complains overnight
Objective Data
-
Labs:
Laboratory Results
11/06/24
07:20
WBC 5.8
Hgb 12.3 L
Hct 37.0 L
Plt Count 146
Sodium 136
Potassium 4.3
Chloride 97 L
Carbon Dioxide 31 H
BUN 21 H
Creatinine 0.9
Glucose 75
Calcium 9.3
Vital Signs:
Vital Signs
Temp Pulse Resp BP Pulse Ox
97.6 F 89 14 127/78 98
11/06/24 07:00 11/06/24 07:13 11/06/24 07:13 11/06/24 07:00 11/06/24 07:13
I&O
11/05/24 11/06/24 11/07/24
06:59 06:59 07:59
Intake Total 960 / 960 1190 / 1190
Output Total 1050 / 1050 1550 / 1550
Balance -90 / -90 -360 / -360
Review of Systems
-
Respiratory: Reports No Symptoms
Cardiac: Reports No Symptoms
Abdomen/GI: Reports No Symptoms
Physical Exam
-
General: No Apparent Distress, Comfortable and Obese
HEENT: Negative Oxygen
Respiratory: Clear to Auscultation
Cardiac: Regular Rhythm and S1/S2; Negative Murmur or Rub
GI: Soft, Nontender and Nondistended
Musculoskeletal: No Edema
Neuro: Awake, Alert, Oriented, No Motor Deficits and Nonfocal/Grossly Intact
Psych: Calm
[2024-11-06 15:00] VITALS: BP 137/59
[2024-11-06 16:25] VITALS: BP 137/59
[2024-11-06] MEDS: XARELTO 10 MG PO (17:26)
[2024-11-06] MEDS: TYLENOL 650 MG PO (21:27)
[2024-11-06] MEDS: TUMS CHEWABLE TABLET 400 MG PO (21:28)
[2024-11-06] MEDS: KLONOPIN 1.5 MG PO (21:32)
[2024-11-06 23:20] VITALS: BP 111/64
[2024-11-07 05:19] LABS: Hematocrit 32.3 % (39.0-52.0); Hemoglobin 11.2 g/dL (13.0-18.0); Mean Corp Hgb Conc. 34.7 g/dL (33.0-37.0); Mean Corpuscular Hgb 30.7 pg (27.0-31.0); Mean Corpuscular Volume 88.5 fL (80.0-94.0); Mean Platelet Volume 9.4 fL (7.4-10.4); Platelet Count 135 10^3/uL (130-400); Red Blood Cell Count 3.65 10^6/uL (4.70-6.10); White Blood Cell Count 6.5 10^3/uL (4.8-10.8)
[2024-11-07 05:49] LABS: Blood Urea Nitrogen 24 mg/dl (9-20); Calcium 8.8 mg/dl (8.4-10.2); Carbon Dioxide 29 mmol/L (22-30); Chloride 98 mmol/L (98-107); Estimated Creatinine Clearance 98 ml/min; Glucose 102 mg/dl (70-99); Potassium 4.1 mmol/L (3.5-5.1); Sodium 137 mmol/L (135-145); eGFR > 60.00
[2024-11-07 06:00] VITALS: BMI 38.8
[2024-11-07] MEDS: SYNTHROID 50 MCG PO (06:04)
[2024-11-07 07:00] VITALS: BP 96/57
[2024-11-07] MEDS: ADVAIR HFA 115/21 MCG INHALER 2 PUFF INH ×2 (07:42→20:58)
[2024-11-07] MEDS: DEPAKOTE (12 HR RELEASE) 1000 MG PO ×2 (08:17→20:37)
[2024-11-07] MEDS: PROTONIX 40 MG PO (08:17)
[2024-11-07] MEDS: ZYLOPRIM 100 MG PO (08:17)
[2024-11-07] MEDS: VITAMIN B-12 2000 MCG PO (08:17)
[2024-11-07] MEDS: FEOSOL 325 MG PO (08:17)
[2024-11-07] MEDS: LASIX 40 MG PO (08:18)
[2024-11-07] MEDS: CLARITIN 10 MG PO (08:18)
[2024-11-07] MEDS: PEPCID 20 MG PO ×2 (08:18→20:38)
[2024-11-07] MEDS: RISPERDAL 1.5 MG PO ×2 (08:18→20:38)
[2024-11-07] MEDS: NIZORAL 2% CREAM 1 APPLIC TOPICAL ×2 (08:18→20:38)
[2024-11-07] MEDS: DICLOFENAC 1% TOPICAL GEL 100 GRAM TOPICAL (08:19)
[2024-11-07] MEDS: TRIAMCINOLONE ACETONIDE 0.025% OINTMENT 1 APPLIC TOPICAL (08:19)
[2024-11-07] MEDS: ZOSTRIX-HP 0.075% CREAM 1 APPLIC TOPICAL (08:20)
--- NOTE | 2024-11-07 12:08 | W.PN.HOSP.TC ---
Today's Communication/Plan
-
medically remains stable for discharge
Assessment / Plan
Assessment / Plan
#Sepsis - POA - Improved
Suspected aspiration pneumonia - Resolved
-Patient was febrile in ER with associated leukocytosis/confusion. Have anemia as well
-Patient history of dementia suspicion of aspiration pneumonia/pneumonitis
-Chest x-ray did not show any overt infiltrate
-CT abdomen pelvis without any clear etiology
-Flu/COVID-negative
-Blood culture neg
-Patient being monitored off abx.
# Toxic metabolic encephalopathy - improved
-Secondary to polypharmacy from chlorpromazine/Klonopin/Risperdal/divalproex
-No clear in indication to give scheduled chlorpromazine discontinuing first, will remove other medication if have further repeat sedation episodes.
# Frontotemporal dementia without behavioral problems
-continue divalproex/Risperdal for now
-Patient remains very pleasant without any behavioral issues reported.
# Hypothyroidism
- continue levothyroxine
# Gout
- continue allopurinol
# GERD
- continue calcium carbonate, famotidine and pantoprazole
# Factor V deficiency
- continue Xarelto
#chronic b/l LE edema
- continue furosemide
#essential hypertension
Code status: full code
DVT prophylaxis: Xarelto
Anticipated Discharge: Today
Subjective/Interval History
-
Date of Service: November 07, 2024
no reported problems overnight
Objective Data
-
Labs:
Laboratory Results
11/07/24
04:22
WBC 6.5
Hgb 11.2 L
Hct 32.3 L
Plt Count 135
Sodium 137
Potassium 4.1
Chloride 98
Carbon Dioxide 29
BUN 24 H
Creatinine 0.9
Glucose 102 H
Calcium 8.8
Vital Signs:
Vital Signs
Temp Pulse Resp BP Pulse Ox
97.5 F 62 16 96/57 95
11/07/24 07:00 11/07/24 07:46 11/07/24 07:46 11/07/24 07:00 11/07/24 07:46
I&O
11/06/24 11/07/24 11/08/24
05:59 06:59 06:59
Intake Total
Output Total
Balance
Review of Systems
-
Respiratory: Reports No Symptoms
Cardiac: Reports No Symptoms
Abdomen/GI: Reports No Symptoms
Physical Exam
-
General: No Apparent Distress, Comfortable and Obese
HEENT: Negative Oxygen
Musculoskeletal: No Edema
Neuro: Awake, Alert, Oriented, No Motor Deficits and Nonfocal/Grossly Intact
Psych: Calm
[2024-11-07 15:00] VITALS: BP 120/67
--- NOTE | 2024-11-07 16:26 | CM ---
Placed a call to to update that patient is medically stable for discharge. She stated that [facility] is still firm that they will not take patient back without a hilda lift. Patient's stated that he did have one there before and
Ryann the DON got rid of it. Patient's was paying privately for it. She stated that she would still like for patient to return back to [facility] and not have to go to a SNF first. Will need to discuss arrangement with Ryann at [facility]
house again in the am.
Plan: Case management will continue to follow and assist with discharge planning. [facility] stating that they will not take patient back prior to a hilda set up but has not offered collaboration in acquiring one.
[2024-11-07] MEDS: XARELTO 10 MG PO (17:23)
[2024-11-07] MEDS: DICLOFENAC 1% TOPICAL GEL 4 GRAM TOPICAL (20:33)
[2024-11-07] MEDS: KLONOPIN 1.5 MG PO (21:45)
[2024-11-07] MEDS: TUMS CHEWABLE TABLET 400 MG PO (22:42)
[2024-11-07 23:12] VITALS: BP 109/66
[2024-11-08] MEDS: SYNTHROID 50 MCG PO (05:38)
[2024-11-08 06:00] VITALS: BMI 38.3
[2024-11-08 07:15] VITALS: BP 116/73
[2024-11-08 07:34] LABS: Hematocrit 35.4 % (39.0-52.0); Hemoglobin 11.7 g/dL (13.0-18.0); Mean Corp Hgb Conc. 33.1 g/dL (33.0-37.0); Mean Corpuscular Volume 90.8 fL (80.0-94.0); Mean Platelet Volume 8.8 fL (7.4-10.4); Platelet Count 129 10^3/uL (130-400); White Blood Cell Count 5.8 10^3/uL (4.8-10.8)
[2024-11-08 07:58] LABS: Blood Urea Nitrogen 22 mg/dl (9-20); Calcium 9.1 mg/dl (8.4-10.2); Carbon Dioxide 32 mmol/L (22-30); Chloride 101 mmol/L (98-107); Estimated Creatinine Clearance 88 ml/min; Glucose 84 mg/dl (70-99); Sodium 137 mmol/L (135-145); eGFR > 60.00
[2024-11-08] MEDS: ADVAIR HFA 115/21 MCG INHALER 2 PUFF INH ×2 (08:10→19:37)
[2024-11-08] MEDS: PROTONIX 40 MG PO (08:55)
[2024-11-08] MEDS: VITAMIN B-12 2000 MCG PO (08:55)
[2024-11-08] MEDS: DEPAKOTE (12 HR RELEASE) 1000 MG PO ×2 (08:55→20:35)
[2024-11-08] MEDS: CLARITIN 10 MG PO (08:55)
[2024-11-08] MEDS: RISPERDAL 1.5 MG PO ×2 (08:55→20:38)
[2024-11-08] MEDS: ZYLOPRIM 100 MG PO (08:57)
[2024-11-08] MEDS: LASIX 40 MG PO (08:58)
[2024-11-08] MEDS: FEOSOL 325 MG PO (08:58)
[2024-11-08] MEDS: PEPCID 20 MG PO ×2 (08:58→20:38)
[2024-11-08] MEDS: ZOSTRIX-HP 0.075% CREAM 1 APPLIC TOPICAL (08:59)
[2024-11-08] MEDS: DICLOFENAC 1% TOPICAL GEL 100 GRAM TOPICAL (08:59)
[2024-11-08] MEDS: TRIAMCINOLONE ACETONIDE 0.025% OINTMENT 1 APPLIC TOPICAL (09:00)
[2024-11-08] MEDS: NIZORAL 2% CREAM 1 APPLIC TOPICAL ×2 (09:00→20:37)
[2024-11-08 11:12] VITALS: BP 126/71; PULSE 72; O2SAT 97
--- NOTE | 2024-11-08 12:44 | W.PN.HOSP.TC ---
Addendum entered and electronically signed by Jerod Chand MD 11/08/24 13:03:
Patient will require hover life as bedbound majority of the times with significantly decreased mobility and requires significant assistance as patient with dementia..
Original Note:
Today's Communication/Plan
-
Await placement
Assessment / Plan
Assessment / Plan
General: No Apparent Distress, Comfortable and Obese
HEENT: Negative Oxygen
Respiratory: Clear to Auscultation
Cardiac: Regular Rhythm and S1/S2; Negative Murmur or Rub
GI: Soft, Nontender and Nondistended
Musculoskeletal: No Edema
Neuro: Awake, No Motor Deficits and Nonfocal/Grossly Intact
Psych: Calm
#Sepsis - POA - Improved
Suspected aspiration pneumonia - Resolved
-Patient was febrile in ER with associated leukocytosis/confusion. Have anemia as well
-Patient history of dementia suspicion of aspiration pneumonia/pneumonitis
-Chest x-ray did not show any overt infiltrate
-CT abdomen pelvis without any clear etiology
-Flu/COVID-negative
-Blood culture neg
-Patient being monitored off abx.
# Toxic metabolic encephalopathy - improved
-Secondary to polypharmacy from chlorpromazine/Klonopin/Risperdal/divalproex
-No clear in indication to give scheduled chlorpromazine discontinuing first, will remove other medication if have further repeat sedation episodes.
# Frontotemporal dementia without behavioral problems
-continue divalproex/Risperdal for now
-Patient remains very pleasant without any behavioral issues reported.
# Hypothyroidism
- continue levothyroxine
# Gout
- continue allopurinol
# GERD
- continue calcium carbonate, famotidine and pantoprazole
# Factor V deficiency
- continue Xarelto
#chronic b/l LE edema
- continue furosemide
#essential hypertension
Code status: full code
DVT prophylaxis: Xarelto
PT/OT-SNF. CM aware. Medically stable for dc.
Anticipated Discharge: Today
Subjective/Interval History
-
Date of Service: November 08, 2024
eating breakfast
afebrile
Objective Data
-
Labs:
Laboratory Results
11/08/24
06:57
WBC 5.8
Hgb 11.7 L
Hct 35.4 L
Plt Count 129 L
Sodium 137
Potassium 4.0
Chloride 101
Carbon Dioxide 32 H
BUN 22 H
Creatinine 1.0
Glucose 84
Calcium 9.1
Vital Signs:
Vital Signs
Temp Pulse Resp BP Pulse Ox
97.4 F 54 14 116/73 96
11/08/24 07:15 11/08/24 08:13 11/08/24 08:13 11/08/24 07:15 11/08/24 08:13
I&O
11/07/24 11/08/24 11/09/24
06:59 06:59 06:59
Intake Total 1800 / 1800
Output Total
Balance 1800 / 1800
--- NOTE | 2024-11-08 13:35 | CM ---
Addendum entered by Elza Metcalf 11/08/24 14:33:
USE THIS FAX # FOR [facility]: [phone]
Original Note:
Spoke with Michael from [facility] regarding hilda [facility] - [phone]
Fax script, progress note face sheet to Michael at [phone]
States he can have hilda & sling delivered tomorrow to [facility]
Spoke with Nirali and let her know it will be delivered tomorrow, CM also notified Ryann CHRISTA at facility
CM to call tomorrow before discharge to confirm hilda delivered
IMM explained to Nirali-verbalized understanding, in chart
PLAN: Return to [facility] tomorrow with [facility]
report #: [phone] fax #: [phone]
[facility] fax # [phone]
[2024-11-08 15:20] VITALS: BP 112/67
[2024-11-08] MEDS: XARELTO 10 MG PO (17:45)
[2024-11-08] MEDS: DICLOFENAC 1% TOPICAL GEL 4 GRAM TOPICAL (20:36)
[2024-11-08] MEDS: KLONOPIN 1.5 MG PO (21:10)
[2024-11-08] MEDS: TYLENOL 650 MG PO (21:10)
[2024-11-08] MEDS: TUMS CHEWABLE TABLET 400 MG PO (21:10)
[2024-11-08 23:00] VITALS: BP 104/64
[2024-11-09] MEDS: SYNTHROID 50 MCG PO (05:59)
[2024-11-09 06:00] VITALS: BMI 38.5
[2024-11-09 07:30] VITALS: BP 120/70
[2024-11-09] MEDS: ADVAIR HFA 115/21 MCG INHALER 2 PUFF INH ×2 (07:32→19:23)
[2024-11-09] MEDS: RISPERDAL 1.5 MG PO ×2 (08:19→20:03)
[2024-11-09] MEDS: DEPAKOTE (12 HR RELEASE) 1000 MG PO ×2 (08:19→20:03)
[2024-11-09] MEDS: VITAMIN B-12 2000 MCG PO (08:20)
[2024-11-09] MEDS: PROTONIX 40 MG PO (08:20)
[2024-11-09] MEDS: PEPCID 20 MG PO ×2 (08:21→20:03)
[2024-11-09] MEDS: LASIX 40 MG PO (08:21)
[2024-11-09] MEDS: ZYLOPRIM 100 MG PO (08:21)
[2024-11-09] MEDS: FEOSOL 325 MG PO (08:21)
[2024-11-09] MEDS: CLARITIN 10 MG PO (08:26)
[2024-11-09] MEDS: DICLOFENAC 1% TOPICAL GEL 100 GRAM TOPICAL (08:28)
[2024-11-09] MEDS: NIZORAL 2% CREAM 1 APPLIC TOPICAL ×2 (08:28→20:04)
[2024-11-09] MEDS: TRIAMCINOLONE ACETONIDE 0.025% OINTMENT 1 APPLIC TOPICAL (08:29)
[2024-11-09] MEDS: ZOSTRIX-HP 0.075% CREAM 0.075 APPLIC TOPICAL (08:32)
--- NOTE | 2024-11-09 10:04 | CM ---
Placed a call to [facility] to speak with Ryann in hopes to determine if hilda was yet delivered. Had to leave a voice mail message. Will f/u again if no return call so that patient can be discharged today if still medically stable.
Plan: Case management will continue to follow and assist with discharge planning. Back to [facility] once confirmation of receipt of hilda lift has been obtained.
--- NOTE | 2024-11-09 11:02 | W.PN.HOSP.TC ---
Today's Communication/Plan
-
dc to SNF
Assessment / Plan
Assessment / Plan
General: No Apparent Distress, Comfortable and Obese
HEENT: Negative Oxygen
Respiratory: Clear to Auscultation
Cardiac: Regular Rhythm and S1/S2; Negative Murmur or Rub
GI: Soft, Nontender and Nondistended
Musculoskeletal: No Edema
Neuro: Awake, No Motor Deficits and Nonfocal/Grossly Intact
Psych: Calm
#Sepsis - POA - Improved
Suspected aspiration pneumonia - Resolved
-Patient was febrile in ER with associated leukocytosis/confusion. Have anemia as well
-Patient history of dementia suspicion of aspiration pneumonia/pneumonitis
-Chest x-ray did not show any overt infiltrate
-CT abdomen pelvis without any clear etiology
-Flu/COVID-negative
-Blood culture neg
-Patient being monitored off abx.
# Toxic metabolic encephalopathy - improved
-Secondary to polypharmacy from chlorpromazine/Klonopin/Risperdal/divalproex
-No clear in indication to give scheduled chlorpromazine discontinuing first, will remove other medication if have further repeat sedation episodes.
# Frontotemporal dementia without behavioral problems
-continue divalproex/Risperdal for now
-Patient remains very pleasant without any behavioral issues reported.
# Hypothyroidism
- continue levothyroxine
# Gout
- continue allopurinol
# GERD
- continue calcium carbonate, famotidine and pantoprazole
# Factor V deficiency
- continue Xarelto
#chronic b/l LE edema
- continue furosemide
#essential hypertension
Code status: full code
DVT prophylaxis: Xarelto
PT/OT-SNF. CM aware. Medically stable for dc.
More than 30 minutes spent in discharge including
Final examination of the patient
Summarizing hospital stay
Instructions for continuing care to all relevant caregivers
Preparation of discharge records, prescriptions, and referral forms
Total time spent (in minutes): 45
Anticipated Discharge: Today
Subjective/Interval History
-
Date of Service: November 09, 2024
resting in bed comfortably
afebrile
Objective Data
-
Vital Signs:
Vital Signs
Temp Pulse Resp BP Pulse Ox
98.1 F 58 14 120/70 95
11/09/24 07:30 11/09/24 07:34 11/09/24 07:34 11/09/24 07:30 11/09/24 07:34
I&O
11/08/24 11/09/24 11/10/24
06:59 06:59 06:59
Intake Total 1800 / 1800 1520 / 1520
Balance 1800 / 1800 1520 / 1520
--- NOTE | 2024-11-09 11:10 | W.DCSUMMARY ---
Discharge Summary
Discharge Data
Date of Admission: 10/31/24
Date of Discharge: 11/09/24
-
Pending Results: No
Hospital Course
64-year-old male past medical history of frontotemporal dementia, hypothyroidism, gout, GERD, factor V Leyden deficiency, chronic bilateral lower extremity edema, hypertension was presented with concern for sepsis on admission. Initial concern for
aspiration pneumonia. Patient in ER was found to be have mild leukocytosis and confusion and fever. Patient was evaluated by infectious disease. Influenza COVID was found to be negative. Blood cultures remain negative. Chest x-ray did not show
any overt infiltrates. CT abdomen pelvis was negative for acute pathology. Patient was monitored off antibiotics. Patient mentation returned to baseline. Patient was afebrile. ID signed off. Patient mentation returned to baseline. Patient
confusion was noted to be polypharmacy from chlorpromazine/Klonopin/Risperdal/divalproex. No clear in indication to give scheduled chlorpromazine discontinuing first, leading to resolution of confusion. Patient was tolerating diet without any
difficulty. Patient will be discharged back to memory care unit.
Discharge Plan
-
Patient Disposition: Senior Living/SNF
Discharge Diagnosis/Procedures: Fever episode, possible aspiration pneumonitis, Right parotid gland nodule
Condition: Fair
Diet: Regular
Activity: As tolerated
Driving Restrictions: No driving
Bathing Restrictions: OK to Shower
Others Tests: hyperintense nodule within the right parotid, incompletely characterized on this examination. Consider ultrasound for further evaluation.
Referrals:
UNKNOWN - PT NOT,INTERVIEWE [Family Provider] - in less than 1 week
Additional Discharge Medication Instructions: Chlorpromazine was discontinued.
Prescriptions:
Continued
cyanocobalamin (vitamin B-12) 1,000 mcg Tablet
2,000 mcg PO DAILY
ferrous sulfate 325 mg (65 mg iron) tablet
324 mg PO DAILY
fluticasone propion-salmeterol [Advair Diskus] 250-50 mcg/dose Blister With Device
1 inh INHALATION R BID
allopurinol 100 mg Tablet
100 mg PO DAILY
divalproex 500 mg Tablet,Delayed Release (Dr/Ec)
1,000 mg PO BID
famotidine [Pepcid] 20 mg Tablet
20 mg PO BID
levothyroxine [Synthroid] 50 mcg Tablet
50 mcg PO DAILY
pantoprazole [Protonix] 40 mg Tablet,Delayed Release (Dr/Ec)
40 mg PO DAILY
calcium carbonate [Tums] 200 mg calcium (500 mg) Tablet,Chewable
400 mg PO Q6HPRN PRN (Reason: gerd)
triamcinolone acetonide 0.025 % Ointment
1 applic TOPICAL DAILY
ergocalciferol (vitamin D2) 1,250 mcg (50,000 unit) Capsule
1,250 mcg PO WE
albuterol sulfate 90 mcg/actuation Hfa Aerosol Inhaler
2 puff INHALATION R Q6HPRN PRN (Reason: sob)
risperidone [Risperdal] 1 mg Tablet
1.5 mg PO BID
loratadine [Claritin] 10 mg Tablet
10 mg PO DAILY
capsaicin [Arthritis Pain Relief(capsaic)] 0.1 % Cream
1 applic TOPICAL DAILY
Minerin Creme Cream
1 applic TOPICAL HS
Xarelto 10 mg Tablet
10 mg PO QPM
furosemide 40 mg Tablet
40 mg PO DAILY Qty: 30 0RF
acetaminophen [Tylenol Extra Strength] 500 mg Tablet
500 mg PO BID
diclofenac sodium 1 % Gel
0 g TOPICAL BID
clonazepam [Klonopin] 1 mg tablet
1.5 mg PO HS
Rx Instructions:
Take 1 Tablet at 1300 AND
Take 1 and Half tablet at 2100
Discontinued
chlorpromazine 25 mg Tablet
25 mg PO BID
Discharge Orders:
Discharge Patient (As Directed); Ordered 11/09/24
Ordered By: Jerod Chand
Discharge Date and Time
Print Language: BANGLADESHI
--- NOTE | 2024-11-09 14:39 | CM ---
Placed a call to Ryann at [facility] x3 this morning however had to leave a voice mail. Call placed to [facility] and a driver license reviewing officer named Gavin answered. He stated that address for drop off was [facility]. Address of [facility]
provided and he stated that he will bring to new address however, later, upon calling [facility] and speaking with Ryann, she stated that she did not receive equipment. Placed a call to [facility] and spoke with a dispatcher who stated that she
had been calling driver license reviewing officer and there had been no answer.
Placed a call to direct number at [facility] [phone] and spoke with another risk control field representative named, Jesenia who stated that the roc will be delivered between 2-5. She was asked why it was not delivered earlier when correct address was provided and she
put call on hold. Jesenia came back to the line and stated that as the roc came from a different warehouse, it has to be delivered back to that warehouse that covers the [facility]. The roc has to be delivered from the warehouse in [place]
and this would not be able to happen until tomorrow. Jesenia was advised that a patient is waiting on this piece of DME to get back to his home, requested an expedition however she stated that there are no circumstances of which that the roc would be
delivered today. Jesenia denied that there was anyone above her who could handle this request. Will call back to determine who can understand the time sensitive nature of this as patient has been here for days waiting for the equipment he needs to
return to his home.
Will also discuss with CM management.
Plan: Case management will continue to follow and assist with discharge planning. Home with Roc at [facility].
[2024-11-09 16:00] VITALS: BP 110/71
--- NOTE | 2024-11-09 17:02 | CM ---
Call placed to Michael from [facility] [phone], made him aware that [facility] attempted to deliver equipment to the hospital and we had been told that due to it now having to come from a different warehouse , that they would not be able to
deliver it until tomorrow. Made Michael aware that patient and were really wanting him to return tonight to [facility]. Michael stated he would look into it and call me right back.
Michael called back and stated that the [employer] and sling would be delivered to [facility] by 7pm tonight. He stated he already called the patient's to make her aware. Update to that [employer] and sling would be delivered tonight by 7pm and
patient could be discharged so he arrives after 7pm this evening. I asked her to make facility aware .
[2024-11-09] MEDS: XARELTO 10 MG PO (17:24)
[2024-11-09] MEDS: TYLENOL 650 MG PO (18:20)
[2024-11-09 20:03] VITALS: BP 115/62
[2024-11-09] MEDS: DICLOFENAC 1% TOPICAL GEL 4 GRAM TOPICAL (20:04)
--- NOTE | 2024-11-09 21:09 | PTCARENOTE ---
Patient picked up by [facility] Care for discharge, left unit @[phone] with personal belongings. IV removed prior to discharge.
--- NOTE | 2024-11-10 10:11 | CM ---
Placed a call to Ryann at [facility]. She confirmed that patient and hilda are there are facility.
== END 2024-11-09 21:10 | DRG 871 ==
LOC: 3 WEST ACU 19:31
PROVIDERS: Hospitalist; Nurse Practitioner Family; Physician Assistant Medical; Registered Nurse; ADMITTING PHYSICIAN Internal Medicine; ATTENDING PHYSICIAN Hospitalist; EMERGENCY PHYSICIAN Emergency Medicine; OTHER PHYSICIAN Student in an Organized Health Care Education/Training Program
DX: A41.9 Sepsis, unspecified organism (principal); G92.8 Other toxic encephalopathy; J69.0 Pneumonitis due to inhalation of food and vomit; F02.818 Dementia in other diseases classified elsewhere, unspecified severity, with other behavioral disturbance; D68.2 Hereditary deficiency of other clotting factors; F17.200 Nicotine dependence, unspecified, uncomplicated; Z11.52 Encounter for screening for COVID-19; E03.9 Hypothyroidism, unspecified; M10.9 Gout, unspecified; K21.9 Gastro-esophageal reflux disease without esophagitis; I50.9 Heart failure, unspecified; I11.0 Hypertensive heart disease with heart failure; L21.9 Seborrheic dermatitis, unspecified; I89.0 Lymphedema, not elsewhere classified; Z74.01 Bed confinement status; E66.01 Morbid (severe) obesity due to excess calories; Z68.38 Body mass index [BMI] 38.0-38.9, adult
CPT/HCPCS: 36600; 70450; 71045; 74177; 80048; 80053; 80164; 81003; 82140; 82805; 83605; 84145; 85025; 85027; 86140; 87040; 87070; 87502; 87811; 93005; 94640; 96365; 96366; 96367; 97112; 97163; 97167; 97530; 97535; 99285; Q9967